=== PATIENT | male | born 1950 | race Caucasian/White ===

== ENCOUNTER → 2018-05-30 08:10 | Outpatient (BNVA) | payer MEDICARE, SELFPAY | PROVIDERS: PCP Internal Medicine; Visit Provider Urology | DX: R33.9 Retention of urine, unspecified (principal); N52.9 Male erectile dysfunction, unspecified | CPT/HCPCS: 99213 ==

== ENCOUNTER → 2019-04-10 07:54 | Outpatient (BNVA) | payer MEDICARE, SELFPAY | PROVIDERS: PCP Internal Medicine; Visit Provider Urology | DX: R33.9 Retention of urine, unspecified (principal); N52.9 Male erectile dysfunction, unspecified; R53.83 Other fatigue; R68.82 Decreased libido | CPT/HCPCS: 99213 ==

== ENCOUNTER → 2020-04-04 11:54 | Outpatient (BNVA) | payer MEDICARE, SELFPAY | PROVIDERS: PCP Internal Medicine; Referring Provider Internal Medicine; Visit Provider Urology | DX: R33.8 Other retention of urine (principal); N52.9 Male erectile dysfunction, unspecified | CPT/HCPCS: 99212; 99213 ==

== ENCOUNTER 2020-12-04 18:56 | Emergency (ER) | payer MEDICARE, SELFPAY ==
[2020-12-04 19:19] VITALS: BP 157/92; PULSE 96; RESP 15; TEMP 37.3; O2SAT 97
[2020-12-04 19:49] LABS: Abs Immature Grans 0.02 10^3/uL (0.0-0.06); Absolute Basophil Count 0.03 10^3/uL (0.0-0.2); Absolute Eosinophil Count 0.06 10^3/uL (0.0-0.7); Absolute Lymphocyte Count 0.97 10^3/uL (1.2-3.4); Absolute Monocyte Count 1.29 10^3/uL (0.1-0.8); Absolute Neutrophil Count 4.73 10^3/uL (1.2-6.7); Basophils % 0.4; Eosinophils % 0.8; HCT 31.1 % (40.0-50.0); HGB 9.9 g/dL (13.5-17.5); Immature Grans % 0.3; Lymphocytes % 13.7; MCHC 31.8 % (32.0-36.0); MCV 78.5 fL (80-95); MPV 9.9 fL (8.0-11.0); Monocytes % 18.2; Neutrophils % 66.6; Nucleated RBC 0 %; Platelet Count 200 10^3/uL (130-400); RBC 3.96 10^6/uL (4.36-5.78); RDW 17.7 % (11.8-14.1); RDW-SD 51.2 fL
[2020-12-04] MEDS: Normal Saline 250 ML 500 ML IV (20:01)
[2020-12-04 20:07] LABS: ALT 50 U/L (16-63); AST 43 U/L (15-37); Albumin 3.3 g/dL (3.4-5.0); Alkaline Phosphatase 72 U/L (46-116); BUN 24 mg/dL (7-18); Bilirubin, Total 0.4 mg/dL (0.2-1.0); CREATININE 1.7 mg/dL (0.70-1.30); Calcium 8.7 mg/dL (8.5-10.1); Chloride 100 mmol/L (98-107); Estimated GFR 39.93 (mL/min/1.73m2); Glucose 135 mg/dL (74-106); Potassium 4.5 mmol/L (3.5-5.1); Sodium 135 mmol/L (136-145); Total Protein 7.6 g/dL (6.4-8.2)
[2020-12-04 20:10] LABS: Bilirubin Negative (Negative); Blood Trace-intact (Negative); Clarity Clear (Clear); Glucose Negative (Negative); Ketones Negative (Negative); Leukocyte Esterase Small (Negative); Nitrite Negative (Negative); Urobilinogen 0.2 EU/dL (Up TO 0.2)
[2020-12-04 20:17] LABS: Bacteria Many HPF (Negative); C & S Indicated? Yes; Casts Negative LPF (Negative); Crystals Negative HPF (Negative); Epithelial Cells Few HPF (Negative); Mucus Negative (Negative); RBC 0-2 HPF (0-2); WBC 20-50 HPF (0-5)
--- NOTE | 2020-12-04 20:40 | W.ED.GENAD ---
Discharge Plan Disposition Patient Disposition: HOME Condition: Stable Discharge Details Clinical Impression: UTI (urinary tract infection), Fever Primary Care Provider: Reji Fowler ED Provider: Jemma Lopez Home Meds and New Rx's Prescriptions: New levofloxacin 750 mg tablet 750 mg PO Q24H 5 Days Qty: 5 RF: 0 Continued metformin 500 MG tablet 1,000 mg PO BID RF: 0 atorvastatin [Lipitor] 10 MG tablet 10 mg PO DAILY RF: 0 glimepiride 1 MG tablet 1 mg PO BID RF: 0 gabapentin 300 MG capsule 1,200 mg PO TID RF: 0 omeprazole 20 MG capsule,delayed release(DR/EC) 40 mg PO DAILY RF: 0 aspirin [Aspirin Low-Strength] 81 MG tablet,chewable 81 mg PO DAILY RF: 0 diltiazem HCl 60 MG tablet 120 mg PO qd RF: 0 olmesartan [Benicar] 20 MG tablet 20 mg PO DAILY RF: 0 Discharge Instructions Instructions: Urinary Tract Infection in Men (ED), Fever in Adults (ED) Additional Instructions: Drink plenty of fluids and get plenty of rest. Alternate tylenol and motrin as needed and directed for pain. Your prescription has been sent electronically to your pharmacy. Call the pharmacy to make sure your prescription is ready before pickup. Take the prescription as directed. Follow-up with your primary care doctor in 1 week and with urology as needed for any concerns. Return to the emergency department with any worsening or new concerning symptoms. Discharge Data Discharge Date/Time-TO BE ENTERED AT DEPARTURE: 12/04/20 22:10 Discharge Physician: Jemma Lopez Medical Decision Making 70-year-old male with a history of hypertension, diabetes, neurogenic bladder with history of self-catheterization presents for fever today of 102, body aches and fatigue today. He was treated earlier this month for UTI and symptoms completely resolved. Patient also complained of dry cough. He took Tylenol prior to arrival and temperature now 99.2. He appears nontoxic and comfortable. Suspect most likely UTI but will also check screening labs and chest x-ray. He denies any abdominal or back pain and has nontender abdomen I do not see an indication for imaging at this time. Screening labs reviewed. Normal white blood cell count of 7. Hemoglobin 9.9. Creatinine 1.7. Normal lactate at 1. Urinalysis notes 20-50 WBCs with small leukocyte esterase and many bacteria. Patient would prefer to go home. As he appears nontoxic with a normal lactate and vital signs, I think this is a reasonable plan at this time and will treat with oral antibiotics. Discussed with patient that he is advised to return here immediately if his fevers not responding to antipyretics or he develops vomiting, abdominal or back pain as he may be developing pyelonephritis or sepsis. Chest x-ray negative. Presentation not consistent with Covid or pneumonia. Patient was given 1 dose of Levaquin here and prescription sent electronically to his pharmacy. Advised to follow up with the primary care doctor for re-evaluation and urology if needed. Usual and customary return precautions given prior to discharge. Medical Records Medical records reviewed: Yes I reviewed the patient's medical records. Imaging Data Radiologic Study: Radiologist's impression: XR Chest Exam date and time: 12/04/2020 8:40 PM Age: 70 years old Clinical indication: Cough and fever TECHNIQUE: Imaging protocol: XR of the chest. Views: 1 view. COMPARISON: No relevant prior studies available. FINDINGS: Limitations: Patient positioning is lordotic. Lungs: No pulmonary consolidation is seen. Pleural spaces: No pleural effusion or pneumothorax is demonstrated. Heart/Mediastinum: The heart appears enlarged; however, heart size can be artifactually increased by lordotic patient positioning. The mediastinal contours appear normal. Bones/joints: The visualized bony structures appear grossly intact, as seen. There are osteophytes along the margin of the thoracic spine. IMPRESSION: No active disease is seen in the chest. Lab Data Lab results reviewed: Yes I reviewed the patient's lab results. Labs: 12/04/20 19:55 Blood Blood Culture - Preliminary NO GROWTH 24 HOURS 12/04/20 19:36 Blood Blood Culture - Preliminary Gram Positive Cocci 12/04/20 19:50 Urine - Reflex from Ua Urine Culture - Preliminary Escherichia coli Laboratory Tests Range/Units 12/04/20 12/04/20 12/04/20 19:36 19:36 19:36 WBC (4.4-10.8) 10^3/uL 7.10 RBC (4.36-5.78) 10^6/uL 3.96 L Hgb (13.5-17.5) g/dL 9.9 L Hct (40.0-50.0) % 31.1 L MCV (80-95) fL 78.5 L MCH (27.0-33.0) pg 25.0 L MCHC (32.0-36.0) % 31.8 L RDW (11.8-14.1) % 17.7 H Plt Count (130-400) 10^3/uL 200 MPV (8.0-11.0) fL 9.9 Immature Gran % 0.3 Neutrophils % 66.6 Lymphocytes % 13.7 Monocytes % 18.2 Eosinophils % 0.8 Basophils % 0.4 Nucleated RBC % % 0 Absolute Neutrophils (1.2-6.7) 10^3/uL 4.73 Absolute Lymphocytes (1.2-3.4) 10^3/uL 0.97 L Absolute Monocytes (0.1-0.8) 10^3/uL 1.29 H Absolute Eosinophils (0.0-0.7) 10^3/uL 0.06 Absolute Basophils (0.0-0.2) 10^3/uL 0.03 VBG Lactate (0.6-1.4) mmol/L 1.0 Sodium (136-145) mmol/L 135 L Potassium (3.5-5.1) mmol/L 4.5 Chloride (98-107) mmol/L 100 Carbon Dioxide (21.0-32.0) mmol/L 22.0 Anion Gap (3-11) mmol/L 13.0 H BUN (7-18) mg/dL 24 H Creatinine (0.70-1.30) mg/dL 1.7 H Estimated GFR/1.73 m2 (mL/min/1.73m2) 39.93 Glucose (74-106) mg/dL 135 H Calcium (8.5-10.1) mg/dL 8.7 Total Bilirubin (0.2-1.0) mg/dL 0.4 AST (15-37) U/L 43 H ALT (16-63) U/L 50 Alkaline Phosphatase (46-116) U/L 72 Total Protein (6.4-8.2) g/dL 7.6 Albumin (3.4-5.0) g/dL 3.3 L Urine Color (Yellow) Urine Clarity (Clear) Urine pH (5-8) Ur Specific Purm[place] (1.005-1.025) Urine Protein (Negative) mg/dL Urine Ketones (Negative) mg/dL Urine Blood (Negative) Urine Nitrite (Negative) Urine Bilirubin (Negative) Urine Urobilinogen (Up TO 0.2) EU/dL Ur Leukocyte Esterase (Negative) Urine RBC (0-2) HPF Urine WBC (0-5) HPF Ur Epithelial Cells (Negative) HPF Urine Crystals (Negative) HPF Urine Bacteria (Negative) HPF Urine Casts (Negative) LPF Urine Mucus (Negative) Ur Culture Indicated? Urine Glucose (Negative) mg/dL Range/Units 12/04/20 19:50 WBC (4.4-10.8) 10^3/uL RBC (4.36-5.78) 10^6/uL Hgb (13.5-17.5) g/dL Hct (40.0-50.0) % MCV (80-95) fL MCH (27.0-33.0) pg MCHC (32.0-36.0) % RDW (11.8-14.1) % Plt Count (130-400) 10^3/uL MPV (8.0-11.0) fL Immature Gran % Neutrophils % Lymphocytes % Monocytes % Eosinophils % Basophils % Nucleated RBC % % Absolute Neutrophils (1.2-6.7) 10^3/uL Absolute Lymphocytes (1.2-3.4) 10^3/uL Absolute Monocytes (0.1-0.8) 10^3/uL Absolute Eosinophils (0.0-0.7) 10^3/uL Absolute Basophils (0.0-0.2) 10^3/uL VBG Lactate (0.6-1.4) mmol/L Sodium (136-145) mmol/L Potassium (3.5-5.1) mmol/L Chloride (98-107) mmol/L Carbon Dioxide (21.0-32.0) mmol/L Anion Gap (3-11) mmol/L BUN (7-18) mg/dL Creatinine (0.70-1.30) mg/dL Estimated GFR/1.73 m2 (mL/min/1.73m2) Glucose (74-106) mg/dL Calcium (8.5-10.1) mg/dL Total Bilirubin (0.2-1.0) mg/dL AST (15-37) U/L ALT (16-63) U/L Alkaline Phosphatase (46-116) U/L Total Protein (6.4-8.2) g/dL Albumin (3.4-5.0) g/dL Urine Color (Yellow) Yellow Urine Clarity (Clear) Clear Urine pH (5-8) 6.0 Ur Specific Purmela (1.005-1.025) 1.010 Urine Protein (Negative) mg/dL Negative Urine Ketones (Negative) mg/dL Negative Urine Blood (Negative) Trace-intact H Urine Nitrite (Negative) Negative Urine Bilirubin (Negative) Negative Urine Urobilinogen (Up TO 0.2) EU/dL 0.2 Ur Leukocyte Esterase (Negative) Small H Urine RBC (0-2) HPF 0-2 Urine WBC (0-5) HPF 20-50 H Ur Epithelial Cells (Negative) HPF Few Urine Crystals (Negative) HPF Negative Urine Bacteria (Negative) HPF Many Urine Casts (Negative) LPF Negative Urine Mucus (Negative) Negative Ur Culture Indicated? Yes Urine Glucose (Negative) mg/dL Negative HPI General Mode of arrival: ambulatory. Date/Time Provider Initiated Documentation: 12/04/20 19:31. Limitations to Documentation: no limitations. Information obtained by: patient. HPI Narrative: Patient is a 70-year-old male with a history of diabetes, hypertension and neurogenic bladder who presents to the ED with a few days of fatigue and feeling feverish. He states today he had a temperature at home of 102.8 oral. He states he has self catheterize for the past few years due to neurogenic bladder as a result of surgery. He states he last was treated for a UTI earlier this month but he is not sure of the antibiotic. He states he has frequent UTIs and states his symptoms appear similar to that. He states his symptoms completely resolved after taking antibiotics earlier this month. He states over the past few days he has been feeling feverish with body aches. He also does admit to a dry cough but denies any chest pain or shortness of breath. He states he has been eating normally and denies any nausea, vomiting, diarrhea. He also denies any hematuria, dysuria, urinary frequency or penile discharge. Related Data Home Medications Medication Instructions Recorded Confirmed aspirin [Aspirin Low-Strength] 81 mg PO DAILY tab.chew 04/18/14 12/05/20 atorvastatin [Lipitor] 10 mg PO DAILY tab-cap 04/18/14 12/05/20 diltiazem HCl 120 mg PO qd tab-cap 04/18/14 12/05/20 gabapentin 1,200 mg PO TID tab-cap 04/18/14 12/05/20 glimepiride 1 mg PO BID 04/18/14 12/05/20 metformin 1,000 mg PO BID tab-cap 04/18/14 12/05/20 olmesartan [Benicar] 20 mg PO DAILY tab-cap 04/18/14 12/05/20 omeprazole 40 mg PO DAILY tab-cap 04/18/14 12/05/20 levofloxacin 750 mg PO Q24H 5 Days #5 tab 12/04/20 12/05/20 Previous Rx's Medication Instructions Recorded levofloxacin 750 mg PO Q24H 5 Days #5 tab 12/04/20 Allergies Allergy/AdvReac Type Severity Reaction Status Date / Time No Known Allergies Allergy Unverified 12/05/20 14:42 General Stated Complaint: Fever MAXIMILIANO: 2 Review of Systems All systems reviewed & are unremarkable except as noted in HPI and below Constitutional Constitutional: Reports as per HPI, Reports chills and Reports fever(s) Eyes Eyes: Denies blurry vision ENT Ears, Nose, Mouth, and Throat: Denies dizziness, Denies sore throat and Denies throat swelling Cardiovascular Cardiovascular: Denies chest pain and Denies dyspnea Respiratory Respiratory: Denies cough and Denies dyspnea Gastrointestinal Gastrointestinal: Denies abdominal pain, Denies diarrhea and Denies vomiting Genitourinary Genitourinary: Denies hematuria and Denies dysuria Musculoskeletal Musculoskeletal: Denies back pain and Denies numbness Integumentary/Breasts Skin/Breast: Denies lesions and Denies rash Neurologic Neurologic: Denies dizziness, Denies localized weakness and Denies numbness Allergic/Immunologic Allergic/Immunologic: Denies throat swelling [facility] Medical History (Updated 12/05/20 @ 16:32 by SHANI Dunn) Diabetes HTN (hypertension) Neurogenic bladder Surgical History (Updated 12/04/20 @ 20:41 by Jemma Lopez DO) History of back surgery History of hip surgery Social History Smoking/Tobacco Use Status: Never Smoking risk assessment performed?: Yes Alcohol Intake: never Substance use type: does not use Do you feel safe at home: Yes Do you feel safe in your relationship?: Yes Exam Const General: cooperative and no acute distress HENMT Head: normal to inspection Face and sinus: normal facial exam Eyes General: appearance normal, both eyes and all related structures EOM: EOM intact bilaterally Neck Neck: normal visual inspection and No submandibular swelling Lymphatic: no lymphadenopathy noted Chest Chest: normal inspection of the chest and no tenderness Resp Effort & Inspection: normal respiratory effort and able to speak in complete sentences Auscultation: clear to auscultation bilaterally Cardio Rate: regular rate Rhythm: regular rhythm GI Inspection: normal to inspection and obesity Palpation: soft, not firm, not rigid and nontender Auscultation: normal bowel sounds Male General Exam: Yes normal external exam Penis: normal penis Scrotum: scrotum normal Testes: no testicular mass and no testicular swelling Skin General skin exam: no rashes or lesions noted Neuro General: patient alert, patient awake and patient oriented x3 Cognition: normal cognition Speech: speech normal Motor: muscle tone normal throughout Sensory Exam: no sensory deficits noted Extrem General: normal to inspection, full ROM, capillary refill normal, no calf tenderness bilaterally and no edema Psych Appearance: grossly normal Mental Status: mental status grossly normal Speech and Movement: speech and movement normal Affect: normal affect Course Vital Signs Vital signs: Vital Signs Temperature 99.2 F 12/04/20 19:19 Pulse 96 H 12/04/20 19:19 Respiratory Rate 15 12/04/20 19:19 Blood Pressure 157/92 H 12/04/20 19:19 Pulse Oximetry 97 12/04/20 19:19 Temperature 99.2 F 12/04/20 19:19 Temperature Source Oral 12/04/20 19:19 Pulse 96 H 12/04/20 19:19 Respiratory Rate 15 12/04/20 19:19 Respiratory Effort Non-Labored 12/04/20 19:22 Blood Pressure 157/92 H 12/04/20 19:19 Blood Pressure Position Sitting 12/04/20 19:19 Pulse Oximetry 97 12/04/20 19:19 Oxygen Delivery Method Room Air 12/04/20 19:19 Oxygen Flow Rate 0 12/04/20 19:19 Pain Level 0 12/04/20 19:19 Lab/Test Results Lab/Test Results: 12/04/20 19:50 Urine - Reflex from Ua Urine Culture - Pending 12/04/20 19:55 Blood Blood Culture - Pending 12/04/20 19:36 Blood Blood Culture - Pending Laboratory Tests Range/Units 12/04/20 12/04/20 12/04/20 19:36 19:36 19:36 WBC (4.4-10.8) 10^3/uL 7.10 RBC (4.36-5.78) 10^6/uL 3.96 L Hgb (13.5-17.5) g/dL 9.9 L Hct (40.0-50.0) % 31.1 L MCV (80-95) fL 78.5 L MCH (27.0-33.0) pg 25.0 L MCHC (32.0-36.0) % 31.8 L RDW (11.8-14.1) % 17.7 H Plt Count (130-400) 10^3/uL 200 MPV (8.0-11.0) fL 9.9 Immature Gran % 0.3 Neutrophils % 66.6 Lymphocytes % 13.7 Monocytes % 18.2 Eosinophils % 0.8 Basophils % 0.4 Nucleated RBC % % 0 Absolute Neutrophils (1.2-6.7) 10^3/uL 4.73 Absolute Lymphocytes (1.2-3.4) 10^3/uL 0.97 L Absolute Monocytes (0.1-0.8) 10^3/uL 1.29 H Absolute Eosinophils (0.0-0.7) 10^3/uL 0.06 Absolute Basophils (0.0-0.2) 10^3/uL 0.03 VBG Lactate (0.6-1.4) mmol/L 1.0 Sodium (136-145) mmol/L 135 L Potassium (3.5-5.1) mmol/L 4.5 Chloride (98-107) mmol/L 100 Carbon Dioxide (21.0-32.0) mmol/L 22.0 Anion Gap (3-11) mmol/L 13.0 H BUN (7-18) mg/dL 24 H Creatinine (0.70-1.30) mg/dL 1.7 H Estimated GFR/1.73 m2 (mL/min/1.73m2) 39.93 Glucose (74-106) mg/dL 135 H Calcium (8.5-10.1) mg/dL 8.7 Total Bilirubin (0.2-1.0) mg/dL 0.4 AST (15-37) U/L 43 H ALT (16-63) U/L 50 Alkaline Phosphatase (46-116) U/L 72 Total Protein (6.4-8.2) g/dL 7.6 Albumin (3.4-5.0) g/dL 3.3 L Urine Color (Yellow) Urine Clarity (Clear) Urine pH (5-8) Ur Specific [place] (1.005-1.025) Urine Protein (Negative) mg/dL Urine Ketones (Negative) mg/dL Urine Blood (Negative) Urine Nitrite (Negative) Urine Bilirubin (Negative) Urine Urobilinogen (Up TO 0.2) EU/dL Ur Leukocyte Esterase (Negative) Urine RBC (0-2) HPF Urine WBC (0-5) HPF Ur Epithelial Cells (Negative) HPF Urine Crystals (Negative) HPF Urine Bacteria (Negative) HPF Urine Casts (Negative) LPF Urine Mucus (Negative) Ur Culture Indicated? Urine Glucose (Negative) mg/dL Range/Units 12/04/20 19:50 WBC (4.4-10.8) 10^3/uL RBC (4.36-5.78) 10^6/uL Hgb (13.5-17.5) g/dL Hct (40.0-50.0) % MCV (80-95) fL MCH (27.0-33.0) pg MCHC (32.0-36.0) % RDW (11.8-14.1) % Plt Count (130-400) 10^3/uL MPV (8.0-11.0) fL Immature Gran % Neutrophils % Lymphocytes % Monocytes % Eosinophils % Basophils % Nucleated RBC % % Absolute Neutrophils (1.2-6.7) 10^3/uL Absolute Lymphocytes (1.2-3.4) 10^3/uL Absolute Monocytes (0.1-0.8) 10^3/uL Absolute Eosinophils (0.0-0.7) 10^3/uL Absolute Basophils (0.0-0.2) 10^3/uL VBG Lactate (0.6-1.4) mmol/L Sodium (136-145) mmol/L Potassium (3.5-5.1) mmol/L Chloride (98-107) mmol/L Carbon Dioxide (21.0-32.0) mmol/L Anion Gap (3-11) mmol/L BUN (7-18) mg/dL Creatinine (0.70-1.30) mg/dL Estimated GFR/1.73 m2 (mL/min/1.73m2) Glucose (74-106) mg/dL Calcium (8.5-10.1) mg/dL Total Bilirubin (0.2-1.0) mg/dL AST (15-37) U/L ALT (16-63) U/L Alkaline Phosphatase (46-116) U/L Total Protein (6.4-8.2) g/dL Albumin (3.4-5.0) g/dL Urine Color (Yellow) Yellow Urine Clarity (Clear) Clear Urine pH (5-8) 6.0 Ur Specific Purm[place] (1.005-1.025) 1.010 Urine Protein (Negative) mg/dL Negative Urine Ketones (Negative) mg/dL Negative Urine Blood (Negative) Trace-intact H Urine Nitrite (Negative) Negative Urine Bilirubin (Negative) Negative Urine Urobilinogen (Up TO 0.2) EU/dL 0.2 Ur Leukocyte Esterase (Negative) Small H Urine RBC (0-2) HPF 0-2 Urine WBC (0-5) HPF 20-50 H Ur Epithelial Cells (Negative) HPF Few Urine Crystals (Negative) HPF Negative Urine Bacteria (Negative) HPF Many Urine Casts (Negative) LPF Negative Urine Mucus (Negative) Negative Ur Culture Indicated? Yes Urine Glucose (Negative) mg/dL Negative
--- NOTE | 2020-12-04 20:58 | DI.RAD_ITS ---
Exam(s) XR PORTABLE CHEST AP EXAM: XR PORTABLE CHEST AP CLINICAL HISTORY: fever, cough, r/o acute disease TECHNIQUE: COMPARISON: No exams were available for comparison FINDINGS: There is a poor inspiration. Cardiac size appears at the upper limits of normal to mildly enlarged. Lungs are grossly clear and well expanded. IMPRESSION: No evidence of acute process. RADIATION DOSE DELIVERED: Total DLP
[2020-12-04 21:12] VITALS: BP 121/64; PULSE 90; RESP 16; O2SAT 92
--- NOTE | 2020-12-04 21:39 | DI.VRAD_ITS ---
PROCEDURE INFORMATION: Exam: XR Chest Exam date and time: 12/04/2020 8:40 PM Age: 70 years old Clinical indication: Cough and fever TECHNIQUE: Imaging protocol: XR of the chest. Views: 1 view. COMPARISON: No relevant prior studies available. FINDINGS: Limitations: Patient positioning is lordotic. Lungs: No pulmonary consolidation is seen. Pleural spaces: No pleural effusion or pneumothorax is demonstrated. Heart/Mediastinum: The heart appears enlarged; however, heart size can be artifactually increased by lordotic patient positioning. The mediastinal contours appear normal. Bones/joints: The visualized bony structures appear grossly intact, as seen. There are osteophytes along the margin of the thoracic spine. IMPRESSION: No active disease is seen in the chest. Dictated and Authenticated by: Davion Anglin MD. Ordering:KATHRYN Easton MD
[2020-12-04] MEDS: levoFLOXacin 500 MG, levoFLOXacin 250 MG 750 MG PO (22:04)
[2020-12-04 22:07] VITALS: TEMP 36.7
--- NOTE | 2020-12-05 12:55 | W.ED.FU ---
Follow Up Plan: Patient notified on 12/05/2020 regarding positive gram-positive cocci on his blood cultures. Instructed to return to the emergency room for admission for IV antibiotics, patient states feeling symptomatically improved. Alert and interactive in this discussion
== END 2020-12-04 22:10 | disposition home or self-care (01) ==
PROVIDERS: Emergency Provider Physician Assistant; PCP Internal Medicine
DX: R50.9 Fever, unspecified (principal); N39.0 Urinary tract infection, site not specified
CPT/HCPCS: 80053; 87040; 87077; 99283; 71045; 81003; 81015; 83605; 85025; 87086; 87186

== ENCOUNTER 2020-12-05 14:10 | Emergency (ER) | payer MEDICARE, SELFPAY ==
[2020-12-05] VITALS (14 sets, daily range): BP systolic 73–136; BP diastolic 27–72; PULSE 85–95; RESP 15–28; TEMP 36.8; O2SAT 91–98
--- NOTE | 2020-12-05 15:09 | ED.GENADUL_ITS ---
Discharge Plan Disposition Patient Disposition: HOME Condition: Stable Discharge Details Clinical Impression: UTI (urinary tract infection) Primary Care Provider: Reji Fowler ED Provider: Velia Marion Home Meds and New Rx's Prescriptions: No Action metformin 500 MG tablet 1,000 mg PO BID RF: 0 atorvastatin [Lipitor] 10 MG tablet 10 mg PO DAILY RF: 0 glimepiride 1 MG tablet 1 mg PO BID RF: 0 gabapentin 300 MG capsule 1,200 mg PO TID RF: 0 omeprazole 20 MG capsule,delayed release(DR/EC) 40 mg PO DAILY RF: 0 aspirin [Aspirin Low-Strength] 81 MG tablet,chewable 81 mg PO DAILY RF: 0 diltiazem HCl 60 MG tablet 120 mg PO qd RF: 0 olmesartan [Benicar] 20 MG tablet 20 mg PO DAILY RF: 0 levofloxacin 750 mg tablet 750 mg PO Q24H 5 Days Qty: 5 RF: 0 Discharge Instructions Instructions: Urinary Tract Infection in Men (ED) Additional Instructions: We have drawn another set of blood cultures, we will contact you if these are positive, please continue taking your Levaquin as prescribed You must take your antibiotics as prescribed or you will become more ill Recheck in 24 hours recommended Should you develop chills, uncontrolled fever,, weakness, or have inability to take your antibiotics he must return immediately to the emergency room Discharge Data Discharge Date/Time-TO BE ENTERED AT DEPARTURE: 12/05/20 16:51 Medical Decision Making While patient does have a positive blood culture, he has an obvious urinary tract infection that is E. coli positive blood cultures are positive for staph, this is likely a contamination, patient feels significantly improved, his vitals are stable, he is ambulatory with steady gait Case was discussed with admitting hospitalist, Dr. Savage and he feels as though if the patient is comfortable being discharged home it is not unreasonable to discharge the patient from the [facility] return precautions discussed, patient is alert, oriented, of decisional capacity, his partner is in the room and able to feel comfortable discharge her home, in fact they prefer discharge home Repeat blood cultures are pending, diagnostic blood work is reassuring for patient, chronically elevated creatinine Discharge, prescription for Levaquin which was applied yesterday Differential Diagnosis Differential Diagnosis: Pyelonephritis, cystitis, ureterolithiasis, divertic ulitis Medical Records Medical records reviewed: Yes I reviewed the patient's medical records. Lab Data Lab results reviewed: Yes I reviewed the patient's lab results. HPI General Mode of arrival: ambulatory . Date/Time Provider Initiated Documentation: 12/05/20 15:03 . Limitations to Documentation: no limitations . Information obtained by: patient . HPI Narrative: This 70-year-old male with history of urinary tract infection and self-catheterization secondary to BPH presents with report of fever for the past 3 days. Patient did not have a fever today reportedly. He was called to come back to the emergency room secondary to positive blood cultures. He denies any shortness of breath or chest pain. He denies any nausea or vomiting. He did not take Tylenol prior to arrival. Related Data Home Medications Medication Instructions Recorded Confirmed aspirin [Aspirin Low-Strength] 81 mg PO DAILY tab.chew 04/18/14 12/05/20 atorvastatin [Lipitor] 10 mg PO DAILY tab-cap 04/18/14 12/05/20 diltiazem HCl 120 mg PO qd tab-cap 04/18/14 12/05/20 gabapentin 1,200 mg PO TID tab-cap 04/18/14 12/05/20 glimepiride 1 mg PO BID 04/18/14 12/05/20 metformin 1,000 mg PO BID tab-cap 04/18/14 12/05/20 olmesartan [Benicar] 20 mg PO DAILY tab-cap 04/18/14 12/05/20 omeprazole 40 mg PO DAILY tab-cap 04/18/14 12/05/20 levofloxacin 750 mg PO Q24H 5 Days #5 tab 12/04/20 12/05/20 Previous Rx's Medication Instructions Recorded levofloxacin 750 mg PO Q24H 5 Days #5 tab 12/04/20 Allergies Allergy/AdvReac Type Severity Reaction Status Date / Time No Known Allergies Allergy Unverified 12/05/20 14:42 General Stated Complaint: [employer] MAXIMILIANO: 3 Review of Systems Narrative: Review of systems obtained x7 aside from where indicated in HPI PFSH Medical History (Updated 12/05/20 @ 16:32 by SHANI Dunn) Diabetes HTN (hypertension) Neurogenic bladder Surgical History (Updated 12/04/20 @ 20:41 by Jemma Lopez DO) History of back surgery History of hip surgery Social History Smoking/Tobacco Use Status: Never Smoking risk assessment performed?: Yes Alcohol Intake: never Substance use type: does not use Do you feel safe at home: Yes Do you feel safe in your relationship?: Yes Exam Const General: cooperative, comfortable and no acute distress HENMT Mouth: oral mucosae normal Chest Chest: normal inspection of the chest Resp Effort & Inspection: normal respiratory effort Cardio Rate: regular rate Rhythm: regular rhythm GI Other: No abdominal tenderness or CVA tenderness Skin General skin exam: no rashes or lesions noted Neuro General: patient alert and patient oriented x3 Course Vital Signs Vital signs: Vital Signs Temperature 36.8 C 12/05/20 14:38 Pulse 95 H 12/05/20 14:38 Respiratory Rate 16 12/05/20 14:38 Blood Pressure 124/65 12/05/20 14:38 Pulse Oximetry 98 12/05/20 14:38 Temperature 36.8 C 12/05/20 14:38 Temperature Source Skin 12/05/20 14:38 Pulse 95 H 12/05/20 14:38 Respiratory Rate 18 12/05/20 15:04 Respiratory Effort Non-Labored 12/05/20 15:04 Respiratory Depth Normal 12/05/20 15:04 Respiratory Pattern Normal 12/05/20 15:04 Blood Pressure 124/65 12/05/20 14:38 Blood Pressure Position Sitting 12/05/20 14:38 Pulse Oximetry 98 12/05/20 14:38 Oxygen Delivery Method Room Air 12/05/20 14:38 Oxygen Flow Rate 0 12/05/20 14:38 Lab/Test Results Lab/Test Results: 12/05/20 15:03 Blood Blood Culture - Pending 12/05/20 15:03 Blood Blood Culture - Pending
[2020-12-05 15:16] LABS: Abs Immature Grans 0.02 10^3/uL (0.0-0.06); Absolute Basophil Count 0.03 10^3/uL (0.0-0.2); Absolute Eosinophil Count 0.04 10^3/uL (0.0-0.7); Absolute Lymphocyte Count 1.41 10^3/uL (1.2-3.4); Absolute Monocyte Count 1.25 10^3/uL (0.1-0.8); Basophils % 0.4; Eosinophils % 0.5; HCT 33.6 % (40.0-50.0); HGB 10.9 g/dL (13.5-17.5); Immature Grans % 0.3; Lymphocytes % 18.7; MCH 25.7 pg (27.0-33.0); MCHC 32.4 % (32.0-36.0); MCV 79.2 fL (80-95); MPV 9.7 fL (8.0-11.0); Monocytes % 16.6; Neutrophils % 63.5; Nucleated RBC 0 %; Platelet Count 225 10^3/uL (130-400); RBC 4.24 10^6/uL (4.36-5.78); RDW 18.1 % (11.8-14.1); RDW-SD 52.3 fL; WBC 7.55 10^3/uL (4.4-10.8)
[2020-12-05 15:29] LABS: ALT 50 U/L (16-63); AST 43 U/L (15-37); Albumin 3.5 g/dL (3.4-5.0); Alkaline Phosphatase 80 U/L (46-116); BUN 25 mg/dL (7-18); Bilirubin, Total 0.4 mg/dL (0.2-1.0); CREATININE 1.9 mg/dL (0.70-1.30); Chloride 101 mmol/L (98-107); Estimated GFR 35.12 (mL/min/1.73m2); Glucose 142 mg/dL (74-106); Potassium 4.2 mmol/L (3.5-5.1); Sodium 137 mmol/L (136-145); Total Protein 8.6 g/dL (6.4-8.2)
[2020-12-05] MEDS: cefTRIAXone 2 GM/50 ML BAG IVPB (15:46)
[2020-12-05 16:30] LABS: Source Nasal/Nares
[2020-12-05 20:39] LABS: COVID-19 PCR Negative (Negative)
== END 2020-12-05 16:51 | disposition home or self-care (01) ==
PROVIDERS: Emergency Provider Physician Assistant; PCP Internal Medicine
DX: N39.0 Urinary tract infection, site not specified (principal); B96.20 Unspecified Escherichia coli [E. coli] as the cause of diseases classified elsewhere
CPT/HCPCS: 36415; 80053; 87040; 87635; 96365; 99284; 83605; 83735; 85025; 99282

== ENCOUNTER 2021-06-22 14:54 | Outpatient (CLI) | payer MEDICARE, SELFPAY ==
--- NOTE | 2021-06-22 10:30 | DI.RAD_ITS ---
Exam(s) XR CHEST 2V PA LATERAL EXAM: XR CHEST 2V PA LATERAL CLINICAL HISTORY: fever, rhonchi RLL, R50.9. TECHNIQUE: 2D digital imaging was performed. COMPARISON: CR,XR XR PORTABLE CHEST AP from 12/04/2020 FINDINGS: Heart size is normal. The mediastinum is not widened. Left lung is clear. Mild increased markings right lung base no true air bronchograms. No pleural ef fusions. No pulmonary edema. IMPRESSION: Very subtle increased markings right lung base. No pleural effusions DATA REPOSITORY: RADIATION DOSE DELIVERED:
[2021-06-22 11:43] LABS: Abs Immature Grans 0.03 10^3/uL (0.0-0.06); Absolute Basophil Count 0.02 10^3/uL (0.0-0.2); Absolute Eosinophil Count 0.06 10^3/uL (0.0-0.7); Absolute Lymphocyte Count 0.55 10^3/uL (1.2-3.4); Absolute Monocyte Count 0.41 10^3/uL (0.1-0.8); Absolute Neutrophil Count 5.61 10^3/uL (1.2-6.7); Basophils % 0.3; Eosinophils % 0.9; HCT 36.2 % (40.0-50.0); Immature Grans % 0.4; Lymphocytes % 8.2; MCH 22.9 pg (27.0-33.0); MCHC 30.4 % (32.0-36.0); MCV 75.4 fL (80-95); MPV 9.8 fL (8.0-11.0); Monocytes % 6.1; Neutrophils % 84.1; Nucleated RBC 0 %; Platelet Count 223 10^3/uL (130-400); RDW 18.3 % (11.8-14.1); RDW-SD 49.8 fL; WBC 6.68 10^3/uL (4.4-10.8)
[2021-06-22 11:51] LABS: ALT 755 U/L (16-63); AST 488 U/L (15-37); Albumin 3.3 g/dL (3.4-5.0); Alkaline Phosphatase 186 U/L (46-116); Anion Gap 13.2 mmol/L (3-11); BUN 25 mg/dL (7-18); Bilirubin, Total 0.9 mg/dL (0.2-1.0); CO2 23.8 mmol/L (21.0-32.0); CREATININE 1.7 mg/dL (0.70-1.30); Calcium 8.6 mg/dL (8.5-10.1); Chloride 96 mmol/L (98-107); Estimated GFR 39.82 (mL/min/1.73m2); Glucose 198 mg/dL (74-106); Potassium 3.4 mmol/L (3.5-5.1); Sodium 133 mmol/L (136-145); Total Protein 7.9 g/dL (6.4-8.2)
[2021-06-22 12:26] LABS: Lipase 170 U/L (73-393)
[2021-06-22] MEDS: Omnipaque 350 MG/ML 100 ML BTL IJ (12:48)
[2021-06-22] MEDS: Normal Saline Flush 10 ML SYR IVP (12:49)
--- NOTE | 2021-06-22 12:51 | DI.CT_ITS ---
Exam(s) CT ABDOMEN PELVIS W EXAM: CT ABDOMEN PELVIS W CLINICAL HISTORY: fever, abdominal pain, decreased appetite, R50.9. TECHNIQUE: Imaging Protocol: Axial computed tomography images with coronal and sagittal reformatted images were created and reviewed CONTRAST MATERIAL: Intravenous: Omnipaque 100cc Oral: Yes COMPARISON: CR XR CHEST 2V PA LATERAL from 06/22/2021 CR XR CHEST 2V PA LATERAL from 06/22/2021 FINDINGS: VISUALIZED LUNG BASES: Minimal increased markings right lung base posterior basal segment. No pleura l effusions.. ABDOMEN: There is no ascites. LIVER: There are no focal hepatic lesions evident . GALLBLADDER/BILIARY: Gallstones noted. In addition, there is gallbladder wall edema-pericholecystic fluid. Gallbladder is not distended. CBD is not dilated. PANCREAS: No evidence of pancreatic mass nor dilatation of the pancreatic duct. SPLEEN: Spleen size normal. There is a round 2 cm splenule noted. No intrasplenic lesions. Splenic and portal veins are patent. ADRENALS: There are no significant adrenal masses. KIDNEYS:No cysts evident. No solid renal masses. No calculi nor hydronephrosis.. ABDOMINAL AORTA: Abdominal aorta is not enlarged. LYMPH NODES:There is no retroperitoneal nor paraaortic adenopathy. ABDOMINAL WALL: No evidence of significant anterior abdominal wall nor inguinal hernia. GI: There is no evidence of bowel obstruction, free air, nor abscess. PELVIS: GI: Appendix is not seen is a separate structure but there is no evidence of obvious appendicitis.No evidence of sigmoid diverticulitis. LYMPH NODES: There is no intrapelvic nor inguinal adenopathy. REPRODUCTIVE: Prostate gland slightly enlarged. URINARY BLADDER: No calculi nor obvious masses evident OSSEOUS: There is fusion hardware across both sacroiliac joints. No significant osseous lesions. Co mpared fresh in fractures of L2 and L3 with fusion across the disc space, this having chronic appeara nce IMPRESSION: 1. There are gallstones in the gallbladder lumen and there is some pericholecystic fluid. Consistent with acute cholecystitis. CBD is not dilated and does not contain obvious calculi. There is no oswaldo dence of pancreatitis. 2. No bowel obstruction. No free air. RADIATION DOSE DELIVERED: 1,032.43mGy.cm Total DLP DATA REPOSITORY: All CT scans at this facility are submitted to the National Radiology Data Registry (NRDR) Dose Index Registry (DIR) with the [employer] (ACR). RADIATION OPTIMIZATION: All CT scans at this facility use at least one of these dose optimization te chniques: automated exposure control; mA and/or kV adjustment per patient size (includes targeted exa ms where dose is matched to clinical indication); or iterative reconstruction.
[2021-06-24 11:53] LABS: Hepatitis A Antibody IgM Negative (Negative); Hepatitis B Core Antibody Negative (Negative); Hepatitis B surface Ag Negative (Negative); Hepatitis C Ab w Rflx HCV PCR Negative (Negative)
== END 2021-06-22 15:14 ==
PROVIDERS: PCP Family Medicine; Visit Provider Physician Assistant
DX: R50.9 Fever, unspecified (principal); R79.89 Other specified abnormal findings of blood chemistry; K80.10 Calculus of gallbladder with chronic cholecystitis without obstruction; R91.8 Other nonspecific abnormal finding of lung field
CPT/HCPCS: 80053; 83690; 86704; 86709; 86803; 87340; 71046; 74177; 81003; 85025; J3490

== ENCOUNTER 2021-06-22 16:24 | Outpatient (REF) | payer MEDICARE, SELFPAY ==
[2021-06-22 16:25] LABS: Bilirubin Negative (Negative); Blood Negative (Negative); Clarity Clear (Clear); Glucose 100 mg/dL (Negative); Ketones Negative (Negative); Leukocyte Esterase Negative (Negative); Nitrite Negative (Negative); Specific Gravity 1.025 (1.005-1.025); pH 5.5 (5-8)
[2021-06-23 13:16] LABS: COVID-19 RT-PCR UVMMC Result Negative (Negative)
== END 2021-06-22 16:25 | disposition home or self-care (01) ==
LOC: LBN 16:24
PROVIDERS: PCP Family Medicine; Visit Provider Physician Assistant
DX: Z20.822 Contact with and (suspected) exposure to COVID-19 (principal); N39.0 Urinary tract infection, site not specified
CPT/HCPCS: U0003; U0005; 81003

== ENCOUNTER 2021-06-22 17:46 | Inpatient (IN) | payer MEDICARE, SELFPAY ==
[2021-06-22 16:05] VITALS: BP 142/82; PULSE 84; RESP 16; TEMP 37.4; O2SAT 93
[2021-06-22] MEDS: Acetaminophen 500 MG TAB 1000 MG PO (19:05)
[2021-06-22] MEDS: Gabapentin 300 MG CAP 1200 MG PO (19:48)
[2021-06-22] MEDS: PIPERACILLIN/TAZO 3.375 GM in Normal Saline 50 ML IVPB (22:04)
[2021-06-22] MEDS: Normal Saline 1,000 ML 100 ML IV (22:04)
[2021-06-22 23:12] VITALS: BP 122/66; PULSE 100; RESP 18; TEMP 36.7; O2SAT 100
[2021-06-22 23:44] LABS: COVID-19 PCR Negative (Negative); Source Nasal/Nares
[2021-06-23] MEDS: Dextrose 50%-Water 25 GM/50 ML SYR IVP (05:16)
[2021-06-23] MEDS: PIPERACILLIN/TAZO 3.375 GM in Normal Saline 50 ML IVPB ×3 (05:31→21:46)
[2021-06-23 07:17] LABS: Abs Immature Grans 0.01 10^3/uL (0.0-0.06); Absolute Basophil Count 0.02 10^3/uL (0.0-0.2); Absolute Eosinophil Count 0.09 10^3/uL (0.0-0.7); Absolute Lymphocyte Count 0.51 10^3/uL (1.2-3.4); Absolute Monocyte Count 0.36 10^3/uL (0.1-0.8); Absolute Neutrophil Count 2.46 10^3/uL (1.2-6.7); Basophils % 0.6; Eosinophils % 2.6; HCT 33.7 % (40.0-50.0); HGB 10.4 g/dL (13.5-17.5); Immature Grans % 0.3; Lymphocytes % 14.8; MCH 22.7 pg (27.0-33.0); MCHC 30.9 % (32.0-36.0); MCV 73.6 fL (80-95); MPV 10.2 fL (8.0-11.0); Monocytes % 10.4; Neutrophils % 71.3; Nucleated RBC 0 %; Platelet Count 216 10^3/uL (130-400); RBC 4.58 10^6/uL (4.36-5.78); RDW-SD 47.3 fL; WBC 3.45 10^3/uL (4.4-10.8)
[2021-06-23 07:46] LABS: ALT 508 U/L (16-63); AST 266 U/L (15-37); Alkaline Phosphatase 152 U/L (46-116); Anion Gap 10.4 mmol/L (3-11); BUN 21 mg/dL (7-18); Bilirubin, Total 0.6 mg/dL (0.2-1.0); CO2 23.6 mmol/L (21.0-32.0); CREATININE 1.5 mg/dL (0.70-1.30); Calcium 8.6 mg/dL (8.5-10.1); Chloride 107 mmol/L (98-107); GGT 415 U/L (15-85); Glucose 129 mg/dL (74-106); Potassium 3.5 mmol/L (3.5-5.1); Sodium 141 mmol/L (136-145); TSH 1.19 uIU/mL (0.36-3.74); Total Protein 7.2 g/dL (6.4-8.2)
[2021-06-23 07:50] LABS: Diff Comment RBC Morph Reviewed
[2021-06-23 07:51] LABS: Anisocytosis 1+; Microcytosis 1+; Poikilocytes 1+; Polychromasia Present
[2021-06-23 08:03] LABS: Iron 20 ug/dL (65-175); Total Iron Binding Capacity 286 ug/dL (250-450); Transferrin Sat 7 % (20-55)
[2021-06-23 08:23] LABS: Ferritin 56 ng/mL (26-388)
[2021-06-23 08:39] VITALS: BP 150/82; PULSE 89; RESP 16; TEMP 37.4; O2SAT 94
--- NOTE | 2021-06-23 09:00 | DI.US_ITS ---
Exam(s) US ABDOMEN LIMITED EXAM: US ABDOMEN LIMITED CLINICAL HISTORY: Acute cholecystitis TECHNIQUE: Ultrasound abdomen performed using standard protocol. COMPARISON: CT CT ABDOMEN PELVIS W from 06/22/[address] ABDOMEN PELVIS W from 06/22/2021 FINDINGS: PANCREAS: Normal where visualized. LIVER: There is diffuse increased echogenicity of the liver consistent with fatty infiltration. Hepa topedal flow in the Portal Vein. The liver measures 19.6 cm long. GALLBLADDER: Mobile gallstones are present. Gallbladder wall measures up to 3.4 mm. No pericholecys tic fluid identified. BILIARY SYSTEM: Common bile duct measures < 7 mm. No intrahepatic biliary ductal dilation. RASCON'S SIGN: Negative. Right kidney: Right kidney is unremarkable. No evidence of renal calculi. No evidence of hydronephro sis. No renal mass or cyst identified. ASCITES: None seen. IMPRESSION: Cholelithiasis. There is a negative Rascon sign, no biliary ductal dilatation and no pericholecystic fluid. Minimal gallbladder wall thickening. DATA REPOSITORY:
[2021-06-23] MEDS: Acetaminophen 500 MG TAB 1000 MG PO ×2 (09:21→18:05)
[2021-06-23] MEDS: Gabapentin 300 MG CAP 1200 MG PO ×3 (09:22→19:31)
[2021-06-23] MEDS: dilTIAZem CD 120 MG CAPCR PO (09:22)
[2021-06-23] MEDS: Normal Saline Flush 10 ML SYR IVP (09:25)
[2021-06-23] MEDS: Pantoprazole 40 MG VIAL IVP (09:25)
[2021-06-23] MEDS: Normal Saline 1,000 ML 100 ML IV ×2 (09:26→19:43)
--- NOTE | 2021-06-23 09:51 | INITIAL_ITS ---
- If Service Date Differs Date of service: 06/23/21 Time of Service: 09:51 Care Management Initial Assess REASON FOR HOSPITALIZATION:: Acute Cholecystitis PAST MEDICAL HISTORY/PAST SURGICAL HISTORY:: Active Problem List . UTI (urinary tract infection) (Acute). Fever (Acute). Urinary retention (Acute 08/30/17). 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 BPH w urinary obs/LUTS (Acute 01/30/16). Medical History . Diabetes. HTN (hypertension). Neurogenic bladder. Surgical History . History of back surgery. History of hip surgery PREVIOUS FUNCTIONAL STATUS/SOCIAL/FAMILY SUPPORTS:: Gil lives in [place] with his forepart rasper and his daughter (and family.) He is retired, drives and is independent at baseline. CURRENT FUNCTIONAL STATUS:: Gil was sitting up in his chair when CM met with him. He was alert, oriented and easily engaged in conversation. He had an US earlier today and waiting to hear from the surgeon. CM will continue to follow. ADVANCE DIRECTIVES:: None, CM provided patient a copy to complete at his convienence. Has patient been provided with info about the portal/API?: Yes Did the patient sign up for the portal?: No CODE STATUS:: Full Code INSURANCE COVERAGE / FINANCIAL ISSUES:: [facility] [employer]. Medicare CURRENT HOME/COMMUNITY SERVICES/EQUIPMENT:: Uses a cane and walking stick-PRN PRIMARY CARE PHYSICIAN:: [facility] PATIENT/FAMILY EDUCATION NEEDS:: Review discharge instructions, limitations and plan to follow up with community providers. Ask me three. TRANSPORTATION:: Via private vehicle with family. PLAN:: Anticipate Gil will be discharged home via private vehicle with family with no new services when medically cleared by provider. He will follow up with community providers and discharge plan of care.
--- NOTE | 2021-06-23 16:10 | CHAPLAIN ---
Gil was up in his chair when I visited. He engaged in a conversation, telling me that he lives in [place] now with his daughter. Last year he spend in a camper in [place]. I left when he received a phone call.
[2021-06-23] MEDS: Insulin Aspart 300 UNITS/3 ML PEN SC (18:04)
[2021-06-23] MEDS: Enoxaparin 40 MG/0.4 ML SYR SC (18:04)
[2021-06-23 18:19] VITALS: BP 149/75; PULSE 66; RESP 20; TEMP 36.7; O2SAT 96
--- NOTE | 2021-06-23 20:31 | W.PM.HP.N ---
Date of service: 06/22/21 Time of Service: 20:32 Assessment and Plan Assessment and plan (1) Fever: Status: Acute (2) Urinary retention: Status: Acute (3) BPH w urinary obs/LUTS: Status: Acute (4) Acute cholecystitis due to biliary calculus: Status: Acute Assessment and plan: US in am PPI inc spirom abx we see how is clinically doing in the next 24 hrs (5) Neurogenic bladder: Status: Acute (6) Diabetes: Status: Acute (7) HTN (hypertension): Status: Acute History of Present Illness Consults Consult date: 06/22/21 Narrative: pt ws admitted from [facility]. He has a hx of a neurogenic bladder injury and has to self-cath. He developed severe fever/chills and thought he had a UTI and went to . He also had some RUQ adbom pain and a nl urine. CT scan was done which did show acute cholecystits. He is having minimal abdominal pain. He is very hungry. He has had no fever/chills in the past 24 hrs. He has noted some mild increase in the back pain lately. He has never had pain like this before. He is also noted to be anemic. Review of Systems All systems reviewed & are unremarkable except as noted in HPI and below PFSH Active Problem List UTI (urinary tract infection) (Acute) Fever (Acute) Urinary retention (Acute 08/30/17) Erectile dysfunction of organic origin (Acute 10/29/15) BPH w urinary obs/LUTS (Acute 01/30/16) Medical History Diabetes HTN (hypertension) Neurogenic bladder Surgical History History of back surgery History of hip surgery Family History Mother Alcohol use disorder Father , 76 Cancer Sister Alcohol use disorder Social History Smoking/Tobacco Use Status: Former Tobacco Use tobacco type: cigarettes Quit Date: 07/18/00 Tobacco: How many years used: 35 Second Hand Exposure: Yes Smoking risk assessment performed?: Yes Alcohol Intake: former Household members: significant other Housing: house Communication Needs: None Do you need help understanding health information?: Rarely Pets and animals: No Sexually active: No Do you think of yourself as: straight/heterosexual Current gender identity: male What is your relationship status?: living with partner How often do you talk on the phone with friends or family?: three or more times per week How often do you get together with friends or relatives?: three or more times per week How often do you attend latter day or jewish services?: 1-3 times per year Do you belong to any clubs or organized social groups?: no Panel score (0-1 are the most socially isolated patients): 2 What type of physical activity do you participate in: walking Duration: 60-90 minutes/day Frequency: 5-6 times per week Keshia/Mu-Ism: [employer] Special keshia needs: No Seatbelt use: always Drive intox or ride w/intox 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 Do you feel safe at home: Yes Do you feel safe in your relationship?: Yes Meds Allergies and Home Medications Allergies Allergy/AdvReac Type Severity Reaction Status Date / Time No Known Allergies Allergy Verified 06/22/21 09:23 Home Medications Medication Instructions Recorded Confirmed Type aspirin [Aspirin Low-Strength] 81 mg PO DAILY tab.chew 04/18/14 06/23/21 History atorvastatin [Lipitor] 10 mg PO DAILY tab-cap 04/18/14 06/23/21 History diltiazem HCl 120 mg PO DAILY AM tab-cap 04/18/14 06/23/21 History gabapentin 1,200 mg PO TID tab-cap 04/18/14 06/23/21 History glimepiride 1 mg PO BID 04/18/14 06/23/21 History metformin 1,000 mg PO BID tab-cap 04/18/14 06/23/21 History olmesartan [Benicar] 20 mg PO DAILY tab-cap 04/18/14 06/23/21 History omeprazole 40 mg PO DAILY tab-cap 04/18/14 06/23/21 History levofloxacin 500 mg tablet 500 mg PO DAILY #5 tab 06/22/21 06/22/21 Rx Exam Resp Effort & Inspection: normal respiratory effort and able to speak in complete sentences Auscultation: clear to auscultation bilaterally Cardio Rate: regular rate Rhythm: regular rhythm GI Palpation: soft Auscultation: normal bowel sounds Other: minimal ruq pain Results Labs Result diagrams: 06/23/21 06:58 06/23/21 06:58 Labs: Laboratory Results - last 24 hr 06/22/21 06/23/21 06/23/21 20:15 06:58 06:58 WBC 3.45 L D RBC 4.58 Hgb 10.4 L Hct 33.7 L MCV 73.6 L MCH 22.7 L MCHC 30.9 L RDW 18.0 H Plt Count 216 MPV 10.2 Immature Gran % 0.3 Neutrophils % 71.3 Lymphocytes % 14.8 Monocytes % 10.4 Eosinophils % 2.6 Basophils % 0.6 Nucleated RBC % 0 Absolute Neutrophils 2.46 Absolute Lymphocytes 0.51 L Absolute Monocytes 0.36 Absolute Eosinophils 0.09 Absolute Basophils 0.02 RBC Morphology See Below Polychromasia Present Poikilocytosis 1+ Anisocytosis 1+ Microcytosis 1+ Sodium 141 Potassium 3.5 Chloride 107 Carbon Dioxide 23.6 Anion Gap 10.4 BUN 21 H Creatinine 1.5 H Estimated GFR/1.73 m2 46.00 Glucose 129 H Calcium 8.6 Iron TIBC Transferrin % Sat Ferritin 56 Total Bilirubin 0.6 GGT 415 H AST 266 H ALT 508 H Alkaline Phosphatase 152 H Total Protein 7.2 Albumin 3.0 L TSH 1.19 COVID-19 Source Nasal/Nares SARS-CoV-2 (PCR) Negative 06/23/21 06:58 WBC RBC Hgb Hct MCV MCH MCHC RDW Plt Count MPV Immature Gran % Neutrophils % Lymphocytes % Monocytes % Eosinophils % Basophils % Nucleated RBC % Absolute Neutrophils Absolute Lymphocytes Absolute Monocytes Absolute Eosinophils Absolute Basophils RBC Morphology Polychromasia Poikilocytosis Anisocytosis Microcytosis Sodium Potassium Chloride Carbon Dioxide Anion Gap BUN Creatinine Estimated GFR/1.73 m2 Glucose Calcium Iron 20 L TIBC 286 Transferrin % Sat 7 L Ferritin Total Bilirubin GGT AST ALT Alkaline Phosphatase Total Protein Albumin TSH COVID-19 Source SARS-CoV-2 (PCR) Last Vital Signs Temp 36.7 C 06/23/21 18:19 Pulse 66 06/23/21 18:19 Resp 20 06/23/21 18:19 BP 149/75 H 06/23/21 18:19 Pulse Ox 96 06/23/21 18:19
--- NOTE | 2021-06-23 20:56 | W.PM.PROGNOT ---
Date of Service Date of service: 06/23/21 Time of Service: 16:00 Assessment and Plan Assessment and plan (1) Acute cholecystitis due to biliary calculus: Status: Acute Assessment and plan: pt is feeling better. No fevers for past 24. hungry+ wo;; try a diet and see how he feels. cont abx pulm toilet support care Pt will need to have his GB removed once the inflammation has resolved. (2) Neurogenic bladder: Status: Acute (3) Diabetes: Status: Acute (4) HTN (hypertension): Status: Acute (5) Urinary retention: Status: Acute Subjective Subjective Interval history since last seen: pt is feeling better today. no headaches. No CP or SOB. no productive cough. no dysuria. no leg pain or swelling. no abdominal pain or nausea. He is very hungry. Exam Chest Chest: normal inspection of the chest and normal palpation of entire chest wall Breast inspection: normal inspection of the breasts Resp Effort & Inspection: normal respiratory effort and able to speak in complete sentences Auscultation: clear to auscultation bilaterally Cardio Rate: regular rate Rhythm: regular rhythm GI Inspection: normal to inspection Auscultation: normal bowel sounds Other: pt denies any abdominal pain today Extrem General: no clubbing, cyanosis or edema Objective Last Vital Signs Temp 36.7 C 06/23/21 18:19 Pulse 66 06/23/21 18:19 Resp 20 06/23/21 18:19 BP 149/75 H 06/23/21 18:19 Pulse Ox 96 06/23/21 18:19 Laboratory Results - last 24 hr 06/22/21 06/23/21 06/23/21 20:15 06:58 06:58 WBC 3.45 L D RBC 4.58 Hgb 10.4 L Hct 33.7 L MCV 73.6 L MCH 22.7 L MCHC 30.9 L RDW 18.0 H Plt Count 216 MPV 10.2 Immature Gran % 0.3 Neutrophils % 71.3 Lymphocytes % 14.8 Monocytes % 10.4 Eosinophils % 2.6 Basophils % 0.6 Nucleated RBC % 0 Absolute Neutrophils 2.46 Absolute Lymphocytes 0.51 L Absolute Monocytes 0.36 Absolute Eosinophils 0.09 Absolute Basophils 0.02 RBC Morphology See Below Polychromasia Present Poikilocytosis 1+ Anisocytosis 1+ Microcytosis 1+ Sodium 141 Potassium 3.5 Chloride 107 Carbon Dioxide 23.6 Anion Gap 10.4 BUN 21 H Creatinine 1.5 H Estimated GFR/1.73 m2 46.00 Glucose 129 H Calcium 8.6 Iron TIBC Transferrin % Sat Ferritin 56 Total Bilirubin 0.6 GGT 415 H AST 266 H ALT 508 H Alkaline Phosphatase 152 H Total Protein 7.2 Albumin 3.0 L TSH 1.19 COVID-19 Source Nasal/Nares SARS-CoV-2 (PCR) Negative 06/23/21 06:58 WBC RBC Hgb Hct MCV MCH MCHC RDW Plt Count MPV Immature Gran % Neutrophils % Lymphocytes % Monocytes % Eosinophils % Basophils % Nucleated RBC % Absolute Neutrophils Absolute Lymphocytes Absolute Monocytes Absolute Eosinophils Absolute Basophils RBC Morphology Polychromasia Poikilocytosis Anisocytosis Microcytosis Sodium Potassium Chloride Carbon Dioxide Anion Gap BUN Creatinine Estimated GFR/1.73 m2 Glucose Calcium Iron 20 L TIBC 286 Transferrin % Sat 7 L Ferritin Total Bilirubin GGT AST ALT Alkaline Phosphatase Total Protein Albumin TSH COVID-19 Source SARS-CoV-2 (PCR)
[2021-06-23 22:42] VITALS: BP 144/81; PULSE 55; RESP 18; TEMP 35.4; O2SAT 93
[2021-06-24] MEDS: Acetaminophen 500 MG TAB 1000 MG PO (01:42)
[2021-06-24] MEDS: Normal Saline 1,000 ML 100 ML IV (05:10)
[2021-06-24] MEDS: PIPERACILLIN/TAZO 3.375 GM in Normal Saline 50 ML IVPB (05:53)
--- NOTE | 2021-06-24 07:27 | W.PM.PROGNOT ---
Date of Service Date of service: 06/24/21 Time of Service: 07:27 Assessment and Plan Assessment and plan (1) Acute cholecystitis due to biliary calculus: Status: Acute Assessment and plan: Patient continues to feel well. No fevers over night Tolerated clear liquid diet yesterday, will progress to low fat reg. diet this morning. Encouraged activity OOB, ambulation and sitting in the chair for all meals. cont abx pulm toilet support care Pt will need to have his GB removed once the inflammation has resolved. (2) Neurogenic bladder: Status: Acute (3) Diabetes: Status: Acute (4) HTN (hypertension): Status: Acute (5) Urinary retention: Status: Acute Subjective Subjective Interval history since last seen: Patient tolerated clear liquid diet without any nausea, vomiting or abdominal pain. He denies having any abdominal pain after eating or over night. Denies any fevers or chills. Exam Const General: cooperative, healthy appearing and comfortable Orientation: alert and oriented x3 Resp Effort & Inspection: normal respiratory effort, no audible wheezes and no cough GI Palpation: soft, no guarding and nontender Objective Last Vital Signs Temp 35.4 C L 06/23/21 22:42 Pulse 55 L 06/23/21 22:42 Resp 18 06/23/21 22:42 BP 144/81 H 06/23/21 22:42 Pulse Ox 93 06/23/21 22:42 Laboratory Results - last 24 hr 06/23/21 06/23/21 06/23/21 06:58 06:58 06:58 WBC 3.45 L D RBC 4.58 Hgb 10.4 L Hct 33.7 L MCV 73.6 L MCH 22.7 L MCHC 30.9 L RDW 18.0 H Plt Count 216 MPV 10.2 Immature Gran % 0.3 Neutrophils % 71.3 Lymphocytes % 14.8 Monocytes % 10.4 Eosinophils % 2.6 Basophils % 0.6 Nucleated RBC % 0 Absolute Neutrophils 2.46 Absolute Lymphocytes 0.51 L Absolute Monocytes 0.36 Absolute Eosinophils 0.09 Absolute Basophils 0.02 RBC Morphology See Below Polychromasia Present Poikilocytosis 1+ Anisocytosis 1+ Microcytosis 1+ Sodium 141 Potassium 3.5 Chloride 107 Carbon Dioxide 23.6 Anion Gap 10.4 BUN 21 H Creatinine 1.5 H Estimated GFR/1.73 m2 46.00 Glucose 129 H Calcium 8.6 Iron 20 L TIBC 286 Transferrin % Sat 7 L Ferritin 56 Total Bilirubin 0.6 GGT 415 H AST 266 H ALT 508 H Alkaline Phosphatase 152 H Total Protein 7.2 Albumin 3.0 L TSH 1.19
[2021-06-24 07:39] VITALS: BP 163/89; PULSE 56; RESP 18; TEMP 36.4; O2SAT 97
[2021-06-24] MEDS: Gabapentin 300 MG CAP 1200 MG PO ×2 (08:13→14:50)
[2021-06-24] MEDS: Pantoprazole 40 MG VIAL IVP (08:13)
[2021-06-24] MEDS: dilTIAZem CD 120 MG CAPCR PO (08:14)
--- NOTE | 2021-06-24 09:40 | W.PM.DS.N ---
Documented by User: SHANI Ugalde 06/24/21 09:55 Date of service: 06/24/21 Time of Service: 09:40 DS: Diagnosis Discharge Diagnosis (1) Acute cholecystitis due to biliary calculus: Status: Acute (2) Neurogenic bladder: (3) Diabetes: (4) HTN (hypertension): (5) Urinary retention: Status: Acute Discharge Plan Disposition Patient Disposition: HOME Condition: Good Discharge Details Reason For Visit: Acute Cholecystitis/Cholelithiasis Admit Date/Time: 06/22/21 17:46 Admit Provider: Yani Lopez Attending Provider: Yani Lopez Primary Care Provider: Magen Cantu Hospital Course Hospital Course: 71 y/o male was admitted for acute cholecystitis noted on CT scan following work up for severe fever, chills, RUQ pain. Patient was admitted to begin IV antibiotics (Zosyn) and pain control. Patient had improvement over the course of his 2 day admission. Abdominal pain progressively improved and resolved. Abdominal US was remarkable for minimal gallbladder wall thickening and gallstones. Patient was started on clear liquid diet and progressed to low fat diet, which he tolerated well. Without any nausea, vomiting or return of his abdominal complaints. Discussed following a low fat diet upon d/c, strongly emphasizing avoiding dairy products, butter, oils, nuts and avocado. D/C home. He will need to follow up with Dr. Lopez to discuss proceeding with Cholecystectomy. Home Meds and New Rx's Prescriptions: New amoxicillin-pot clavulanate [Augmentin] 875-125 mg tablet 1 tab PO BID Qty: 14 RF: 0 Continued metformin 500 MG tablet 1,000 mg PO BID RF: 0 atorvastatin [Lipitor] 10 MG tablet 10 mg PO DAILY RF: 0 glimepiride 1 MG tablet 1 mg PO BID RF: 0 gabapentin 300 MG capsule 1,200 mg PO TID RF: 0 omeprazole 20 MG capsule,delayed release(DR/EC) 40 mg PO DAILY RF: 0 aspirin [Aspirin Low-Strength] 81 MG tablet,chewable 81 mg PO DAILY RF: 0 diltiazem HCl 60 MG tablet 120 mg PO DAILY AM RF: 0 olmesartan [Benicar] 20 MG tablet 20 mg PO DAILY RF: 0 Discontinued levofloxacin 500 mg tablet 500 mg PO DAILY Qty: 5 RF: 0 Discharge Instructions Instructions: Cholecystitis (DC), Gallstones (DC), Low Fat Diet (DC) Additional Instructions: Activity at Home after surgery: 1. As tolerated Diet, Nutrition, & wound healin. Low fat diet Pain Medications: 1. Tylenol 650mg every 6 hours as needed and Ibuprofen 600 mg every 6 hours as needed. You may alternate between the 2 medications every 3 hours For Constipation: 1. Take Milk of Magnesia or MiraLax as needed for constipation Please call our office if you develop: 1. Fevers >101.5 2. Nausea or Vomiting 3. Worsening pain If after hours please call the Hospital at and ask to speak to the on-call surgeon Referrals: Yani Lopez DO [OSTEOPATHIC DOCTOR] - 06/29/21 9:00 am Activity:: Activity as Tolerated Equipment/Supplies:: No Equipment Needed Diet:: Low Fat Diet Discharge Orders Discharge Orders: Discharge Order (Routine); Ordered 06/24/21 Ordered By: Aicha Caballero DS: Summary Time Spent with Patient providing and/or coordinating discharge services: Greater than 30 minutes Status at Discharge Functional status at discharge: independent ambulation Overall status at discharge: patient is back to baseline Mental Status: mental status grossly normal Speech and Movement: speech and movement normal Mood: congruent mood Affect: normal affect Exam Const General: cooperative, healthy appearing and comfortable Orientation: alert and oriented x3 Resp Effort & Inspection: normal respiratory effort, no audible wheezes and no cough GI Inspection: normal to inspection and obesity Palpation: soft, no guarding and nontender Psych Mental Status: mental status grossly normal Speech and Movement: speech and movement normal Mood: congruent mood Affect: normal affect DS: Data Vitals/I&O Vitals and I&O: Vital Signs Temperature 36.4 C L 06/24/21 07:39 Temperature Source Tympanic 06/24/21 07:39 Pulse 56 L 06/24/21 07:39 Pulse Rhythm Regular 06/24/21 08:01 Respiratory Rate 18 06/24/21 07:39 Respiratory Effort Non-Labored 06/24/21 08:01 Respiratory Depth Normal 06/24/21 08:01 Respiratory Pattern Normal 06/24/21 08:01 Blood Pressure 163/89 H 06/24/21 07:39 Pulse Oximetry 97 12/08/21 07:39 Oxygen Delivery Method Room Air 06/24/21 07:39 Oxygen Flow Rate 0 06/24/21 07:39 Pain Level 0 06/23/21 18:19 Intake & Output 06/23/21 06/24/21 06/24/21 18:59 06:59 18:59 Intake Total 1050 / 3095 2045 / 3095 393.333 / 393.333 Output Total 400 / 400 Balance 650 / 2695 2045 / 2695 393.333 / 393.333 Intake: IV 1050 / 3095 2045 / 3095 393.333 / 393.333 Output: Urine 400 / 400 Other: Urine Color Pale Yellow Urine Appearance Clear Comment per patient he has been voiding all day Voiding Methods Toilet Data Completed and Pending Labs on day of discharge: Preliminary micro results at discharge 06/22/21 20:18 Blood Culture - Preliminary Blood NO GROWTH 24 HOURS 06/22/21 20:15 Blood Culture - Preliminary Blood NO GROWTH 24 HOURS PFSH Active Problem List (Updated 06/24/21 @ 14:23 by Aicha Caballero MD) Acute cholecystitis due to biliary calculus (Acute) Fever (Acute) Urinary retention (Acute 08/30/17) Medical History (Updated 06/24/21 @ 14:23 by Aicha Caballero MD) BPH w urinary obs/LUTS (01/30/16) Diabetes 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) HTN (hypertension) Neurogenic bladder UTI (urinary tract infection) Surgical History History of back surgery History of hip surgery Family History Mother Alcohol use disorder Father , 76 Cancer Sister Alcohol use disorder Social History Smoking/Tobacco Use Status: Former Tobacco Use tobacco type: cigarettes Quit Date: 07/18/00 Tobacco: How many years used: 35 Second Hand Exposure: Yes Smoking risk assessment performed?: Yes Alcohol Intake: former Household members: significant other Housing: house Communication Needs: None Do you need help understanding health information?: Rarely Pets and animals: No Sexually active: No Do you think of yourself as: straight/heterosexual Current gender identity: male What is your relationship status?: living with partner How often do you talk on the phone with friends or family?: three or more times per week How often do you get together with friends or relatives?: three or more times per week How often do you attend christian or congregation services?: 1-3 times per year Do you belong to any clubs or organized social groups?: no Panel score (0-1 are the most socially isolated patients): 2 What type of physical activity do you participate in: walking Duration: 60-90 minutes/day Frequency: 5-6 times per week Keshia/Worship: Sikhism Special keshia needs: No Seatbelt use: always Drive intox or ride w/intox putaway driver: No Do you feel safe at home: Yes Do you feel safe in your relationship?: Yes Documented by User: Aicha Caballero MD 06/24/21 14:28 Discharge Plan Disposition Patient Disposition: HOME Condition: Good Discharge Details Reason For Visit: Acute Cholecystitis/Cholelithiasis Admit Date/Time: 06/22/21 17:46 Admit Provider: Yani Lopez Attending Provider: Yani Lopez Primary Care Provider: Magen Cantu Hospital Course Hospital Course: 71 y/o male was admitted for acute cholecystitis noted on CT scan following work up for severe fever, chills, RUQ pain. Patient was admitted to begin IV antibiotics (Zosyn) and pain control. Patient had improvement over the course of his 2 day admission. Abdominal pain progressively improved and resolved. Abdominal US was remarkable for minimal gallbladder wall thickening and gallstones. Patient was started on clear liquid diet and progressed to low fat diet, which he tolerated well. Without any nausea, vomiting or return of his abdominal complaints. Discussed following a low fat diet upon d/c, strongly emphasizing avoiding dairy products, butter, oils, nuts and avocado. D/C home. He will need to follow up with Dr. Stoiber to discuss proceeding with Cholecystectomy. Home Meds and New Rx's Prescriptions: New amoxicillin-pot clavulanate [Augmentin] 875-125 mg tablet 1 tab PO BID Qty: 14 RF: 0 Continued metformin 500 MG tablet 1,000 mg PO BID RF: 0 atorvastatin [Lipitor] 10 MG tablet 10 mg PO DAILY RF: 0 glimepiride 1 MG tablet 1 mg PO BID RF: 0 gabapentin 300 MG capsule 1,200 mg PO TID RF: 0 omeprazole 20 MG capsule,delayed release(DR/EC) 40 mg PO DAILY RF: 0 aspirin [Aspirin Low-Strength] 81 MG tablet,chewable 81 mg PO DAILY RF: 0 diltiazem HCl 60 MG tablet 120 mg PO DAILY AM RF: 0 olmesartan [Benicar] 20 MG tablet 20 mg PO DAILY RF: 0 Discontinued levofloxacin 500 mg tablet 500 mg PO DAILY Qty: 5 RF: 0 Discharge Instructions Instructions: Cholecystitis (DC), Gallstones (DC), Low Fat Diet (DC) Additional Instructions: Activity at Home after surgery: 1. As tolerated Diet, Nutrition, & wound healin. Low fat diet Pain Medications: 1. Tylenol 650mg every 6 hours as needed and Ibuprofen 600 mg every 6 hours as needed. You may alternate between the 2 medications every 3 hours For Constipation: 1. Take Milk of Magnesia or MiraLax as needed for constipation Please call our office if you develop: 1. Fevers >101.5 2. Nausea or Vomiting 3. Worsening pain If after hours please call the Hospital at and ask to speak to the on-call surgeon Referrals: Yani Lopez DO [OSTEOPATHIC DOCTOR] - 06/29/21 9:00 am Activity:: Activity as Tolerated Equipment/Supplies:: No Equipment Needed Diet:: Low Fat Diet Discharge Orders Discharge Orders: Discharge Order (Routine); Ordered 06/24/21 Ordered By: Aicha Caballero [facility] Active Problem List (Updated 06/24/21 @ 14:23 by Aicha Caballero MD) Acute cholecystitis due to biliary calculus (Acute) Fever (Acute) Urinary retention (Acute 08/30/17) Medical History (Updated 06/24/21 @ 14:23 by Aicha Caballero MD) BPH w urinary obs/LUTS (01/30/16) Diabetes 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) HTN (hypertension) Neurogenic bladder UTI (urinary tract infection) Surgical History History of back surgery History of hip surgery Family History Mother Alcohol use disorder Father , 76 Cancer Sister Alcohol use disorder Social History Smoking/Tobacco Use Status: Former Tobacco Use tobacco type: cigarettes Quit Date: 07/18/00 Tobacco: How many years used: 35 Second Hand Exposure: Yes Smoking risk assessment performed?: Yes Alcohol Intake: former Household members: significant other Housing: house Communication Needs: None Do you need help understanding health information?: Rarely Pets and animals: No Sexually active: No Do you think of yourself as: straight/heterosexual Current gender identity: male What is your relationship status?: living with partner How often do you talk on the phone with friends or family?: three or more times per week How often do you get together with friends or relatives?: three or more times per week How often do you attend christian or congregation services?: 1-3 times per year Do you belong to any clubs or organized social groups?: no Panel score (0-1 are the most socially isolated patients): 2 What type of physical activity do you participate in: walking Duration: 60-90 minutes/day Frequency: 5-6 times per week Keshia/Worship: Sikhism Special keshia needs: No Seatbelt use: always Drive intox or ride w/intox putaway driver: No Do you feel safe at home: Yes Do you feel safe in your relationship?: Yes
[2021-06-24 10:21] LABS: Path Consult (Tech Order) SEE COMENT
[2021-06-24] MEDS: Insulin Aspart 300 UNITS/3 ML PEN SC (11:40)
--- NOTE | 2021-06-24 15:28 | PHACLINREV_ITS ---
Pharmacy Admission Review - Admission Clinical Review (Last Updated 06/24/21 @ 14:23 by Aicha Caballero MD) Acute cholecystitis due to biliary calculus (Acute) Fever (Acute) Urinary retention (Acute 08/30/17) No Known Allergies Allergy (Verified 06/22/21 09:23) Resuscitation Status Full Code Height 5 ft 8 in Weight 101.2 kg - Renal Dosing Renal Dosing: BUN 21 mg/dL (7-18) H 06/23/21 06:58 Creatinine 1.5 mg/dL (0.70-1.30) H 06/23/21 06:58 Medications needing adjustments: Reviewed (SCr: 1.5, CrCl~51.3mL/min (using adjusted body weight).) - Anticoagulation Anticoagulation: Hgb 10.4 g/dL (13.5-17.5) L 06/23/21 06:58 Hct 33.7 % (40.0-50.0) L 06/23/21 06:58 Plt Count 216 10^3/uL (130-400) 06/23/21 06:58 Creatinine 1.5 mg/dL (0.70-1.30) H 06/23/21 06:58 - Opiate Usage Evaluate Pain Scale/Pains Meds: Reviewed (Morphine 2mg IVP PRN) Scheduled Bowel Reg ordered if on Opiates?: No - Relevant Labs Sodium 141 mmol/L (136-145) 06/23/21 06:58 Potassium 3.5 mmol/L (3.5-5.1) 06/23/21 06:58 Chloride 107 mmol/L (98-107) 06/23/21 06:58 - DM Control DM Control: Glucose 129 mg/dL (74-106) H 06/23/21 06:58 Finger Stick Blood Glucose 235 Finger Stick Blood Glucose 235 Finger Stick Blood Glucose 235 Finger Stick Blood Glucose 113 Finger Stick Blood Glucose 113 Finger Stick Blood Glucose 113 - Heart Failure/WV EF%, LUCILA's, B-Blockers, Diuretics: N/A - BP Control BP Control: Blood Pressure 163/89 If elevated: Reviewed (Blood pressure slightly elevated this admission.) List meds needing interventions: Furosemide 20mg daily not ordered. Olmesartan 20mg daily - patient's own medication (not brought in yet). - Qtc Review If Elevated: N/A (No QTc recorded this admission.) - IV to PO Switch IV Medications: Reviewed - Home Meds Home Med List reviewed: Reviewed (Atorvastatin 80mg daily, Duloxetine 60mg BID, Furosemide 20mg daily, Metformin 1000mg BID and Glimepiride 2mg daily not order ed (sliding scale insulin aspart ordered).) - Current meds Current Medication Order Review: Reviewed - Comments Comments/Follow Ups: Continue to monitor vitals, labs and for medication changes.
--- NOTE | 2021-06-24 16:52 | PDOC.CMDIS ---
- If Service Date Differs Date of service: 06/24/21 Time of Service: 16:52 LACE Index Scoring Tool - Questions: Length of Stay (in days): 2 Acuity (Admit via E.D.?): No Comorbidities: Diabetes w/o Complication E.D. Visits: 2 - Answers: Total Score: 5 Risk of Readmission: Low Risk Care Management Discharge Reason for Hospitalization: Acute Cholecystitis Discharge Plan: Discharge home via private vehicle with family with no new services. Follow up with surgery as an outpatient, community providers and discharge plan of care as prescribed. Patient/Family Education Needs: Review discharge instructions, limitations and plan to follow up with community providers. ask me three.
== END 2021-06-24 15:34 | disposition home or self-care (01) | DRG 446 ==
PROVIDERS: Admitting Provider Surgery; PCP Family Medicine; Visit Provider Surgery
DX: K80.00 Calculus of gallbladder with acute cholecystitis without obstruction (principal); E11.9 Type 2 diabetes mellitus without complications; I10 Essential (primary) hypertension; R33.9 Retention of urine, unspecified; N31.9 Neuromuscular dysfunction of bladder, unspecified; Z20.822 Contact with and (suspected) exposure to COVID-19; N40.1 Benign prostatic hyperplasia with lower urinary tract symptoms
CPT/HCPCS: 36410; 36415; 80053; 85027; 87040; 87635; J1650; 76705; 82728; 82977; 83540; 83550; 84443; 85025; J2543

== ENCOUNTER → 2021-06-29 08:51 | Outpatient (BNVA) | payer MEDICARE, SELFPAY | PROVIDERS: PCP Family Medicine; Referring Provider Family Medicine; Visit Provider Surgery | DX: K80.00 Calculus of gallbladder with acute cholecystitis without obstruction (principal); K21.9 Gastro-esophageal reflux disease without esophagitis; E11.40 Type 2 diabetes mellitus with diabetic neuropathy, unspecified; J44.9 Chronic obstructive pulmonary disease, unspecified; N31.9 Neuromuscular dysfunction of bladder, unspecified | CPT/HCPCS: 99212; 99214 ==

== ENCOUNTER 2021-07-20 01:27 | Outpatient (CLI) | payer MEDICARE, SELFPAY ==
[2021-07-20 11:03] LABS: Source Nasal/Nares
[2021-07-20 14:29] LABS: COVID-19 PCR Negative (Negative)
== END 2021-07-20 01:28 | disposition home or self-care (01) ==
LOC: LBO 01:27
PROVIDERS: PCP Family Medicine; Visit Provider Surgery
DX: Z20.822 Contact with and (suspected) exposure to COVID-19 (principal)
CPT/HCPCS: 87635

== ENCOUNTER 2021-07-21 07:30 | Day surgery (SDC) | payer MEDICARE, SELFPAY ==
[2021-07-21] VITALS (7 sets, daily range): BP systolic 98–144; BP diastolic 63–91; PULSE 58–75; RESP 11–20; TEMP 36–36.9; O2SAT 93–99; BMI 33.6
--- NOTE | 2021-07-21 08:04 | W.ANESPRE ---
General Info Date of Service Date Performed: 07/21/21 Height: 5 ft 7.5 in Weight: 98.94 kg Body Mass Index (BMI): 33.6 Surgical Procedure: Operation Date: 07/21/21 09:10 Proposed Procedures Side Surgeon p Cholecystectomy Laparoscopic Cholangio, poss. Open Yani Lopez, DO Meds Allergies and Home Medications Allergies Allergy/AdvReac Type Severity Reaction Status Date / Time No Known Allergies Allergy Verified 07/21/21 07:58 Home Medication Medication Instructions Recorded aspirin [Aspirin Low-Strength] 81 mg PO DAILY tab.chew 04/18/14 gabapentin 1,200 mg PO TID tab-cap 04/18/14 glimepiride 2 mg PO BID 04/18/14 metformin 1,000 mg PO BID tab-cap 04/18/14 olmesartan [Benicar] 20 mg PO DAILY tab-cap 04/18/14 omeprazole 40 mg PO DAILY tab-cap 04/18/14 atorvastatin 80 mg PO DAILY 06/24/21 diltiazem HCl [Cartia XT] 120 mg PO DAILY 06/24/21 duloxetine 60 mg PO BID 06/24/21 furosemide 20 mg PO DAILY 06/24/21 ammonium lactate 12 % topical cream 1 applic TOPICAL DAILY 06/29/21 cephalexin 250 mg tablet 250 mg PO DAILY tab 06/29/21 multivitamin 1 tab PO DAILY 06/29/21 Current Visit Medications: Current Medications Generic Name Dose Route Start Last Admin Trade Name Freq PRN Reason Stop Dose Admin Acetaminophen 1,000 mg 07/21/21 06:00 Acetaminophen 500 Mg Tab PO 07/21/21 23:59 PREOP TATUM Gabapentin 600 mg 07/21/21 06:00 Gabapentin 300 Mg Cap PO 07/21/21 23:59 PREOP TATUM Piperacillin Sod/Tazobactam 50 mls @ 100 mls/hr 07/21/21 06:00 Sod 3.375 gm/ Sodium Chloride IVPB 07/21/21 23:59 PREOP TATUM Ringer's Solution 1,000 mls @ 100 mls/hr 07/21/21 06:00 IV 07/21/21 23:59 INFUSION TATUM IV Miscellaneous Supplies 1 each 07/21/21 06:00 Iv Access IV 07/21/21 23:59 DIRECTED TATUM Sodium Chloride 0 ml 07/21/21 06:00 Normal Saline Flush 10 Ml Syr IV 07/21/21 23:59 PRN PRN Sodium Chloride 0 ml 07/21/21 06:00 Normal Saline 10 Ml Vial IJ 07/21/21 23:59 DIRECTED PRN Sterile Water 0 ml 07/21/21 06:00 Water,Injection,Sterile 10 Ml Vial IJ 07/21/21 23:59 DIRECTED PRN PFSH Active Problems Active Problems: Problem Status Onset Code History of smoking Z87.891 Neurogenic bladder ~12/27/18 N31.9 Type 2 diabetes mellitus with diabetic neuropathy, unspecified E11.40 COPD (chronic obstructive pulmonary disease) J44.9 CAD (coronary artery disease) I25.10 Actinic keratoses L57.0 Chronic low back pain M54.50, G89.29 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 Chronic kidney disease N18.9 Recurrent UTI N39.0 Bilateral carpal tunnel syndrome G56.03 Brachial neuritis M54.12 Cervical spondylosis with radiculopathy M47.22 Ulcer of lower extremity ~01/25/20 L97.909 Rosacea L71.9 GERD (gastroesophageal reflux disease) K21.9 Barretts esophagus K22.70 PVD (peripheral vascular disease) ~12/09/20 I73.9 Body mass index exceeds 30 Gout M10.9 Hyperlipidemia E78.5 Squamous cell carcinoma of skin C44.92 Acute cholecystitis due to biliary calculus K80.00 Urinary retention 08/30/17 R33.9 Medical History Medical History BPH w urinary obs/LUTS (01/30/16) Diabetes 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) HTN (hypertension) UTI (urinary tract infection) Surgical History Surgical History History of appendectomy (~07/18/1958) History of back surgery History of endoscopy (~05/24/17) w/ biopsy- 03/21/18, 09/19/18, 03/27/19, 04/22/20 History of esophagogastroduodenoscopy (EGD) (~04/22/20) History of foot surgery (~07/18/08) right foot History of hip surgery History of incision and drainage (~07/18/90) perianal abscess- w/ internal sphincterotomy History of shoulder surgery (~07/18/74) History of surgical removal of pilonidal cyst Tobacco Smoking/Tobacco Use Status: Former Tobacco Use Tobacco: How many years used: 35 Second hand exposure: Yes Alcohol Alcohol Intake: former Substance Use Substance use: Never Substance use type: does not use Vital Signs and Lab Results Vital Signs Most Recent Vital Signs in EMR: Most Recent Vital Signs Temp Pulse Resp BP Pulse Ox 36.3 C L 75 20 144/91 H 99 07/21/21 07:42 07/21/21 07:42 07/21/21 07:42 07/21/21 07:42 07/21/21 07:42 Lab Results Blood Type / Crossmatch: No Data to Display Complete Blood Count: White Blood Count 3.45 10^3/uL (4.4-10.8) L 06/23/21 06:58 06/23/21 Red Blood Count 4.58 10^6/uL (4.36-5.78) 06/23/21 06:58 06/23/21 Hemoglobin 10.4 g/dL (13.5-17.5) L 06/23/21 06:58 06/23/21 Hematocrit 33.7 % (40.0-50.0) L 06/23/21 06:58 06/23/21 Platelet Count 216 10^3/uL (130-400) 06/23/21 06:58 06/23/21 Complete Metabolic Panel: Sodium Level 141 mmol/L (136-145) 06/23/21 06:58 06/23/21 Potassium Level 3.5 mmol/L (3.5-5.1) 06/23/21 06:58 06/23/21 Chloride Level 107 mmol/L (98-107) 06/23/21 06:58 06/23/21 Carbon Dioxide Level 23.6 mmol/L (21.0-32.0) 06/23/21 06:58 06/23/21 Blood Urea Nitrogen 21 mg/dL (7-18) H 06/23/21 06:58 06/23/21 Creatinine 1.5 mg/dL (0.70-1.30) H 06/23/21 06:58 06/23/21 Estimated GFR/1.73 m2 46.00 (mL/min/1.73m2) 06/23/21 06:58 06/23/21 Calcium Level 8.6 mg/dL (8.5-10.1) 06/23/21 06:58 06/23/21 Albumin 3.0 g/dL (3.4-5.0) L 06/23/21 06:58 06/23/21 Glucose Level 129 mg/dL (74-106) H 06/23/21 06:58 06/23/21 Liver Function Panel: Alanine Aminotransferase (ALT/SGPT) 508 U/L (16-63) H 06/23/21 06:58 06/23/21 Aspartate Amino Transf (AST/SGOT) 266 U/L (15-37) H 06/23/21 06:58 06/23/21 Gamma Glutamyl Transpeptidase 415 U/L (15-85) H 06/23/21 06:58 06/23/21 Coagulation Panel: No Data to Display Cardiac Panel: No Data to Display Arterial Blood Gas: No Data to Display Venous Blood Gas: No Data to Display Pancreas Panel: Lipase 170 U/L (73-393) 06/22/21 11:20 06/22/21 Thyroid Panel: Thyroid Stimulating Hormone (TSH) 1.19 uIU/mL (0.36-3.74) 06/23/21 06:58 06/23/21 Infectious Disease: Coronavirus (COVID-19)(PCR) Negative (Negative) 07/20/21 09:16 07/20/21 Coronavirus 2019 Source Nasal/Nares 07/20/21 09:16 07/20/21 Hepatitis B Surface Antigen Negative (Negative) 06/22/21 12:20 06/22/21 Hepatitis C Antibody Negative (Negative) 06/22/21 12:20 06/22/21 Blood Cultures: No Data to Display Toxicology Panel: No Data to Display Anesthesia Assessment and Plan Anesthesia History Personal History: No History of Anesthesia Complications Family History: No Family History of Anesthesia Complications Exercise Tolerance Exercise Tolerance: Metabolic Equivalents>4 Pertinent Negatives Pertinent Negatives: No Symptoms of GERD (Well controlled with meds) Cardiac & Pulmonary Exam Cardiac Exam: Normal S1/S2 Heart Sounds Pulmonary Exam: Clear Bilateral Breath Sounds Implantable Cardiac Device Does patient have a Pacemaker or an ICD?: No Airway Exam Known Difficult Airway: No Mallampati Class: 3 Mouth Opening: Normal (> 3cm) Thyromental Distance: Greater than 3 cm Neck Range of Motion: Full ROM Neck Circumference: Normal Teeth Condition: Normal Dentition, Removable Dentures/Plates Upper and Removable Dentures/Plates Lower (Partial) ASA Classification ASA Score: ASA 2 Emergency Case?: No NPO Status NPO Status: NPO Clears >2 hours, Solids >8 hours Anesthesia Plan Resuscitation Status: Full Code Anesthesia Technique: General Anesthesia Airway Planned: Endotracheal Tube Monitors Used: Standard Monitors
[2021-07-21] MEDS: Acetaminophen 500 MG TAB 1000 MG PO (08:14)
[2021-07-21] MEDS: Lactated Ringers 1,000 ML 100 ML IV (08:29)
--- NOTE | 2021-07-21 08:45 | ROE_ITS ---
Date of service: 07/21/21 Time of Service: 08:45 Operative Note Operative Note DATE OF PROCEDURE: 07/21/21 PRE-OP DIAGNOSIS: acute davy w/ stones POST-OP DIAGNOSIS: same SURGEON: Yani Key [employer] MANAGER: Sandra Joseph Refer to Anesthesia Record Procedure Description: Informed consent was obtained, explaining risks and benefits of the procedure including but not limited to bleeding, infection, pneumonia, blood clots, possible damage to bowel, bladder, blood vessels, bile ducts, possible open procedure, complications of general anesthesia and other unforetold complications. PROCEDURE: The patient agrees and is brought to the operative room suite and placed in supine position. Anesthesia was administered per the Department of Anesthesia. The patient did receive IV antibiotics. NG tube and Mcfadden catheter are placed. The patient was prepped and draped in the usual sterile fashion using DuraPrep scrub solution. Pause for the cause was done. 20 mL of 1% buffered lidocaine was used for local anesthetization. A stab incision was made in the umbilicus and the Verres inserted. Drop test was positive and insufflation was begun. When 15 mm of pressure was noted on the monitor, the Veress was removed and #5 port inserted. The camera was inserted through the port and shows no damage to underlying structures. A 10 mm port was then placed in the epigastric position under direct visualization following creation of local field blocks as well as two 5 mm ports in the right upper quadrant has adhesions up to the anterior abdominal wall. These are taken down with blunt dissection. Clips and electrocautery used to provide hemostasis.. The gallbladder fundus was grasped and retracted towards the right shoulder. Infundibulum was grasped and retracted laterally. The hepat-duodenal ligament is entered. The cystic duct and artery are dissected out and the most inferior portion of the gallbladder plate is re moved from the liver and the critical view of safety was obtained after clearing away all fatty material. Endo Clips were placed across the duct and artery and these structures are divided. The remainder of the gallbladder was excised from the liver bed. The gallbladder was placed in a bag and brought out. Examination of the gallbladder shows indeed the cystic duct and artery to have been divided. The gallbladder was very intrahepatic. FloSeal was placed in the liver bed to aid with little coagulation. The remainder of the abdomen was copiously irrigated with a liter of saline. All saline is removed. There is no bleeding or bile leakage from the liver bed or the clips sites. An EndoClose needle was used to close the 10 mm port site with an 0 Vicryl. All ports and instruments are removed. SPonge and needle counts are correct. Pneumoperitoneum is evacuated and the port sites are monitored to make sure there is no bleeding at the time of desufflation. The epigastric port site is instilled w/ 10cc Experel at the time of closure. Port sites are irrigated and the skin is closed with 4-0 Monocryl in a running subcuticular fashion. Skin glue sterile dressings are applied. The patient tolerated the procedure well without complications, transferred to the recovery room in stable condition. YANI KEY, DO
[2021-07-21] MEDS: PIPERACILLIN/TAZO 3.375 GM in Normal Saline 50 ML IVPB (09:01)
--- NOTE | 2021-07-21 09:44 | GB_PTH ---
PATIENT: Gil Castaneda LOC: ED U#:[id number] AGE/SX: 71/M ROOM: RE07/21/[address]: Yani Lopez : 1950 BED: DIS: 07/21/2021 SPEC #: [id number] RECD: 07/21/21 12:52 STATUS: MICHAEL RELicha #: [id number] CHARLEY: 07/21/21 09:[address]: Yani Lopez DEPT: Surgical Specimen RECD BY: Velia Monsivais ENTERED: 07/21/21 12:52 SP TYPE: GB OTHR DR: Magen Cantu Tissues: 1 - GALLBLADDER Procedures: GROSS AND MICRO LEVEL 3 Comments: [id number]
[2021-07-21] MEDS: Bupivacaine 0.25% Pres-Free 30 ML VIAL (10:21)
--- NOTE | 2021-07-21 10:55 | PDOC.DSDIS_ITS ---
Discharge Plan Disposition Patient Disposition: HOME Condition: Good Discharge Details Reason For Visit: gallbladder Attending Provider: Yani Lopez Primary Care Provider: Magen Cantu Home Meds and New Rx's Prescriptions: New tramadol [Ultram] 50 mg tablet 50 mg PO Q6H PRNQty: 14 RF: 0 ondansetron HCl [Zofran] 4 mg tablet 4 mg PO Q6H PRNQty: 4 RF: 0 Continued metformin 500 MG tablet 1,000 mg PO BID RF: 0 glimepiride 1 MG tablet 2 mg PO BID RF: 0 gabapentin 300 MG capsule 1,200 mg PO TID RF: 0 omeprazole 20 MG capsule,delayed release(DR/EC) 40 mg PO DAILY RF: 0 olmesartan [Benicar] 20 MG tablet 20 mg PO DAILY RF: 0 cephalexin 250 mg tablet 250 mg PO DAILY RF: 0 multivitamin [Daily Multi-Vitamin] Tablet 1 tab PO DAILY RF: 0 ammonium lactate 12 % cream 1 applic topical DAILY RF: 0 diltiazem HCl [Cartia XT] 120 mg capsule,extended release 24hr 120 mg PO DAILY RF: 0 atorvastatin 80 mg tablet 80 mg PO DAILY RF: 0 furosemide 20 mg tablet 20 mg PO DAILY RF: 0 duloxetine 60 mg capsule,delayed release(DR/EC) 60 mg PO BID RF: 0 Discontinued aspirin [Aspirin Low-Strength] 81 MG tablet,chewable 81 mg PO DAILY RF: 0 Discharge Instructions Additional Instructions: Care after Gallbladder Surgery -Pain control: For the first 72 hours after surgery, take you pain meds continuously and not just when you have pain. Alternate Tylenol 1000mg by mouth every 8 hours, and Ibuprofen 600mg every 6 hours. Make sure you take ibuprofen with food and not on an empty stomach. Use the tramadol for breakthrough pain- pain that is greater than a 7. -Hold aspirin for the next week, and if still taking ibuprofen. - Use ICE! Ice really helps to keep the swelling down, and swelling causes pain. Twenty minutes on, and then off, continuously for the first 72hours. After the first 72hrs, you can just use the Tylenol, ibuprofen or Celebrex, and ice, when you have pain. If you are taking narcotic pain medication, follow the instructions on the label and do not drive. Pain medications can make you very constipated. Make sure you are moving your bowels daily. If not, take Miralax, milk of magnesia or magnesium citrate. - Anesthesia makes you very constipated. Take a dose of milk of magnesia the morning after surgery. ? Use an ice bag for the first 72 hours. This helps to decrease swelling, which causes pain. It is normal to be more sore/painful and swollen towards the end of the day and first thing in the morning. ? Gallbladder surgery can make you very nauseated; use Zofran for nausea, for the first 24 hours. The nausea generally stops after 24 hours. ? Use milk of magnesia or prune juice to prevent constipation (this is a particular side effect of pain medication and anesthesia). Do not allow yourself to become constipated. ? Avoid fatty or greasy foods; introduce these slowly, with care, after about 1 month. High-fat foods include: ? Foods that are fried, like [place] fries and potato chips ? High-fat meats, such as santillan, bologna, sausage, ground beef, and ribs, pork products ? High-fat dairy products, such as cheese, ice cream, cream, whole milk, and sour cream ? Pizza ? Foods made with lard or butter ? Creamy soups or sauces ? Meat gravies ? Chocolate ? Oils, such as palm and coconut oil ? Skin of chicken or turkey Nuts and nut butters [place] ? Start out eating very small, bland amounts of food. Do not take pain pills on an empty stomach. - You will notice purple discoloration around the incisions. This is the ?skin glue?. This will wear off on its own. It is OK to shower after 24hrs. You do not need to cover the incisions. - -You should walk frequently, gradually, increasing the distance. You may climb stairs, just go slowly. ? Do not go swimming or sit in a hot tub for two weeks. ? There are no stitches to remove. ? Do not drive your car x72hrs and then only if you have no pain and can move freely. Do not drive if you are taking pain narcotic pain medications. ? You may resume sexual activity whenever pain and soreness subside, usually in 2 weeks. ? Do no lift anything over 5 lbs. for two weeks. ? You may return to work in one week, or when you feel able, provided you do not have to do any heavy lifting or prolonged standing. ? You should return to Dr. Lopez?s office for a post-op appointment about one week after surgery. Please call the Surgical [facility] at: [phone] to schedule an appointment. My Medications for pain and nausea are: ibuprofen and ultram, and zofran When to Call the Office: ? If the incision becomes red or swollen, or there is more than a little d rainage from it. ? If you develop a temperature higher than 100.5 F. ? If your eyes turn yellow ? Vomiting and can?t keep fluids down Activity:: see above Remove Dressings/Wound Care:: 24 hours Shower/Bathe:: 24 hours Diet:: Carb Counting Discharge Orders Discharge Orders: Discharge Order (Routine); Ordered 07/21/21 Ordered By: Yani Lopez DS: Diagnosis Discharge Diagnosis (1) History of smoking: Status: Acute (2) Neurogenic bladder: Status: Acute (3) Type 2 diabetes mellitus with diabetic neuropathy, unspecified: Status: Acute (4) COPD (chronic obstructive pulmonary disease): Status: Chronic (5) CAD (coronary artery disease): Status: Chronic (6) Chronic kidney disease: Status: Chronic (7) GERD (gastroesophageal reflux disease): Status: Chronic (8) Barretts esophagus: Status: Acute (9) PVD (peripheral vascular disease): Status: Chronic (10) Body mass index exceeds 30: Status: Acute (11) Gout: Status: Chronic (12) Hyperlipidemia: Status: Acute (13) Squamous cell carcinoma of skin: Status: Acute (14) Acute cholecystitis due to biliary calculus: Status: Acute (15) Urinary retention: Status: Acute
[2021-07-21] MEDS: traMADol 50 MG TAB PO (12:08)
--- NOTE | 2021-07-21 12:44 | W.ANESPOSTOP ---
Postoperative Evaluation Date, Time and Location Date Performed: 07/21/21 Time Performed: 12:44 Patient Location: Day Surgery Unit Vital Signs Most Recent Imported Vital Signs: Most Recent Vital Signs Temp Pulse Resp BP Pulse Ox 36.9 C 59 L 16 134/79 96 07/21/21 12:12 07/21/21 12:12 07/21/21 12:12 07/21/21 12:12 07/21/21 12:12 Pain Score Most Recent Pain Score: Most Recent Pain Score Pain Level 3 07/21/21 12:12 Assessment Mental Status: Awake (Alert & Oriented to Patient Baseline) Airway and Respiratory Function: Patent airway with normal (patient baseline) respiratory exam Cardiovascular Function: Hemodynamically Stable Hydration Status: Adequately Hydrated Nausea & Vomiting: No Nausea or Vomiting Pain: Pain is tolerable per patient Peripheral Nerve Block: Patient did not receive a nerve block
== END 2021-07-21 13:00 | disposition home or self-care (01) ==
PROVIDERS: PCP Family Medicine; Visit Provider Surgery
PROC: 0FT44ZZ Resection of Gallbladder, Percutaneous Endoscopic Approach (ICD-10-PCS; CPT 47563; principal; 2021-07-21 09:00)
DX: K80.10 Calculus of gallbladder with chronic cholecystitis without obstruction (principal); E11.9 Type 2 diabetes mellitus without complications; K21.9 Gastro-esophageal reflux disease without esophagitis; E78.5 Hyperlipidemia, unspecified
CPT/HCPCS: 47562; 88304; J1885; J2405; J2543; J2704

== ENCOUNTER → 2021-07-30 12:55 | Outpatient (BNVA) | payer MEDICARE, SELFPAY | PROVIDERS: PCP Family Medicine; Referring Provider Family Medicine; Visit Provider Surgery | DX: Z48.815 Encounter for surgical aftercare following surgery on the digestive system (principal); Z90.49 Acquired absence of other specified parts of digestive tract ==

== ENCOUNTER 2021-11-26 01:51 | Outpatient (CLI) | payer MEDICARE, SELFPAY ==
[2021-11-26 12:56] LABS: COMMENT (LAB VIEW ONLY) 43.34 mg/dL
[2021-11-26 13:08] LABS: Hemoglobin A1C 7.2 % (<5.7)
[2021-11-26 13:18] LABS: ALT 40 U/L (16-63); AST 30 U/L (15-37); Albumin 4.1 g/dL (3.4-5.0); Alkaline Phosphatase 103 U/L (46-116); Anion Gap 13.4 mmol/L (3-11); BUN 36 mg/dL (7-18); Bilirubin, Total 0.4 mg/dL (0.2-1.0); CO2 24.6 mmol/L (21.0-32.0); CREATININE 1.8 mg/dL (0.70-1.30); Calcium 9.1 mg/dL (8.5-10.1); Calculated LDL 58 mg/dL (<100); Chloride 105 mmol/L (98-107); Cholesterol 130 mg/dL (<200); Estimated GFR 37.27 (mL/min/1.73m2); Glucose 69 mg/dL (74-106); HDL Cholesterol 42 mg/dL (40-60); Potassium 5.2 mmol/L (3.5-5.1); Sodium 143 mmol/L (136-145); Total Protein 7.9 g/dL (6.4-8.2); Triglyceride 152 mg/dL (<150)
[2021-11-26 13:35] LABS: Uric Acid 7.6 mg/dL (3.5-7.2)
== END 2021-11-26 01:52 | disposition home or self-care (01) ==
LOC: LOS 01:51
PROVIDERS: PCP Nurse Practitioner Family; Visit Provider Family Medicine
DX: E11.40 Type 2 diabetes mellitus with diabetic neuropathy, unspecified (principal); M10.9 Gout, unspecified; N18.9 Chronic kidney disease, unspecified
CPT/HCPCS: 36415; 80053; 80061; 82043; 82570; 83036; 84550

== ENCOUNTER 2021-12-25 15:00 | Outpatient (CLI) | payer MEDICARE, SELFPAY ==
--- NOTE | 2021-12-25 15:00 | NS.NUTBLAN_ITS ---
Gil and were referred to diabetes self management education. Gil is 71 year old male with hx of Dm 2, CAD, COPD. Most recent A1C (11/26/21): 7.2% indicates well controlled Dm, lipids wnl. Dm meds: 1000 mg metformin, 2 mg glimepiride BID. Diet Recall: breakfast:oatmeal, lunch: sandwich, Dinner home made mostly. Exercise: walks 1-3 miles per day Session today focused on glycemic index, meal plans and snack ideas. Overall, Gil is managing his diabetes well- following heart healthy meal plan and includes exercise daily. Reviewed and adjusted meal plans for optimal glycemic index. Provided meal plans and snack ideas. Enouraged continued emphasis on heart healthy eating with routine exercise. A1C goal < 8.5% in view of age and co morbidities. No follow up planned at this time.
== END 2021-12-25 16:00 ==
LOC: DS 12-31 14:24
PROVIDERS: PCP Nurse Practitioner Family; Visit Provider Dietitian, Registered
DX: E11.9 Type 2 diabetes mellitus without complications (principal); Z79.84 Long term (current) use of oral hypoglycemic drugs; Z71.3 Dietary counseling and surveillance
CPT/HCPCS: 97802

== ENCOUNTER 2022-01-20 16:46 | Outpatient (REF) | payer MEDICARE, SELFPAY ==
[2022-01-22 11:24] LABS: COVID-19 RT-PCR UVMMC Result Negative (Negative)
== END 2022-01-20 16:47 | disposition home or self-care (01) ==
LOC: LBN 16:46
PROVIDERS: PCP Nurse Practitioner Family; Visit Provider Family Medicine
DX: J06.9 Acute upper respiratory infection, unspecified (principal); Z20.822 Contact with and (suspected) exposure to COVID-19
CPT/HCPCS: U0003

== ENCOUNTER → 2022-02-03 13:48 | Outpatient (CLI) | payer MEDICARE, SELFPAY ==
--- NOTE | 2022-02-03 13:30 | DI.RAD_ITS ---
Exam(s) XR CHEST 2V PA LATERAL EXAM: XR CHEST 2V PA LATERAL CLINICAL HISTORY: HEMOPTYSIS, R04.2--COUGH, R05.9--COPD, J44.9 TECHNIQUE: 2D digital imaging was performed. COMPARISON: CR XR CHEST 2V PA LATERAL from 06/22/2021 FINDINGS: MEDIASTINUM: Normal. HEART: Upper limits of normal. Aorta tortuous. PULMONARY VASCULATURE: Normal. LUNGS: Clear. PLEURAL SPACE: No pleural effusion or pneumothorax. BONE:Flowing osteophytes in the thoracic spine. Resection of the distal right clavicle. IMPRESSION: No acute abnormality. DATA REPOSITORY: RADIATION DOSE DELIVERED:
== END ==
PROVIDERS: PCP Nurse Practitioner Family; Visit Provider Family Medicine
DX: J44.9 Chronic obstructive pulmonary disease, unspecified (principal)
CPT/HCPCS: 71046

== ENCOUNTER 2022-02-03 14:09 | Outpatient (REF) | payer MEDICARE, SELFPAY | END 2022-02-03 14:10 | disposition home or self-care (01) | LOC: LBN 14:09 | PROVIDERS: PCP Nurse Practitioner Family; Visit Provider Family Medicine | DX: R05.9 Cough, unspecified (principal); R04.2 Hemoptysis; J44.9 Chronic obstructive pulmonary disease, unspecified | CPT/HCPCS: 87070; 87205 ==

== ENCOUNTER 2022-02-24 13:54 | Outpatient (REF) | payer MEDICARE, SELFPAY ==
[2022-02-25 11:36] LABS: Campylobacter PCR Negative (Negative); Salmonella PCR Negative (Negative); Shiga Toxin PCR Negative (Negative); Shigella/Enteroinvasive Ecoli Negative (Negative)
== END 2022-02-24 13:55 | disposition home or self-care (01) ==
LOC: LBN 13:54
PROVIDERS: PCP Nurse Practitioner Family; Visit Provider Nurse Practitioner Family
DX: R19.7 Diarrhea, unspecified (principal)
CPT/HCPCS: 87505

== ENCOUNTER 2022-02-24 15:06 | Emergency (ER) | payer MEDICARE, SELFPAY ==
[2022-02-24 15:09] VITALS: BP 112/65; PULSE 86; RESP 20; TEMP 37.1; O2SAT 94
[2022-02-24 15:23] VITALS: RESP 18
--- NOTE | 2022-02-24 16:00 | ED.GENADUL_ITS ---
Discharge Plan Disposition Patient Disposition: HOME Condition: Improving Discharge Details Clinical Impression: Diverticulitis, Allergic reaction Primary Care Provider: Vega Scherer ED Provider: Steve Quesada Home Meds and New Rx's Prescriptions: New ciprofloxacin HCl [Cipro] 500 mg tablet 500 mg PO BID Qty: 20 0RF metronidazole 500 mg tablet 500 mg PO QID 10 Days Qty: 40 0RF Continued trazodone 50 mg tablet 50 mg PO QHS PRN (Reason: sleep) Qty: 90 0RF albuterol sulfate 90 mcg/actuation HFA aerosol inhaler 2 puff inhalation Q4H PRN (Reason: shortness of breath or wheezing) Qty: 8.5 11RF cetirizine [Zyrtec] 10 mg tablet 10 mg PO DAILY PRN (Reason: allergy symptoms) Qty: 14 0RF prednisone 20 mg tablet 40 mg PO DAILY Qty: 10 0RF diphenoxylate-atropine [Lomotil] 2.5-0.025 mg tablet 1 tab PO TID PRN (Reason: diarrhea) Qty: 60 0RF metformin 500 MG tablet 1,000 mg PO BID glimepiride 1 MG tablet 2 mg PO BID Label Comments: 11/22/16 PER PT. 2MG BID gabapentin 300 MG capsule 1,200 mg PO TID omeprazole 20 MG capsule,delayed release(DR/EC) 40 mg PO DAILY olmesartan [Benicar] 20 MG tablet 20 mg PO DAILY multivitamin [Daily Multi-Vitamin] Tablet 1 tab PO DAILY ammonium lactate 12 % cream 1 applic topical DAILY diltiazem HCl [Cartia XT] 120 mg capsule,extended release 24hr 120 mg PO DAILY atorvastatin 80 mg tablet 80 mg PO DAILY furosemide 20 mg tablet 20 mg PO DAILY duloxetine 60 mg capsule,delayed release(DR/EC) 60 mg PO BID cetirizine 10 mg Tablet 10 mg PO DAILY prednisone 20 mg Tablet 40 mg PO DAILY diphenoxylate-atropine 2.5-0.025 mg Tablet 1 tab PO TID Discharge Instructions Instructions: Diverticulitis (ED), General Allergic Reaction (ED) Additional Instructions: Cipro and Flagyl as directed. Clear liquid diet, advance as tolerated. Continue taking the steroids prescribed by your primary care doctor, these medications may cause increased glucose levels. Add on [id number] Benadryl and Pepcid for the next 5 days while taking the steroids. Cool compresses to the face every 2 hours for 20 minutes. Please watch for new or worsening symptoms and return to the ER for any concerns. Your tickborne panel is pending and can be followed by your primary care provider. Lastly I do recommend contacting your PCP tomorrow to discuss your ER visit, ongoing symptoms, need for outpatient reevaluation. Discharge Data Discharge Date/Time-TO BE ENTERED AT DEPARTURE: 02/24/22 20:34 Medical Decision Making This is a 71-year-old gentleman presenting to the ER for 2 separate complaints. Given his abdominal pain will obtain IV access, routine screening laboratory matilde ues and a CT of his abdomen pelvis with IV contrast. Stool samples are already pending. I do not see obvious evidence of erythema migrans but will obtain a Lyme panel as well. No obvious known allergic exposure. Patient with what appears to be eyelid edema as well as cheek edema but I do not see any evidence of lip or tongue swelling, angioedema, etc. No airway compromise. No stridor or wheezing. Patient already given IM steroids. Will provide 1 L IV fluid, IV Pepcid and Benadryl. Laboratory values do not reveal any evidence of leukocytosis. Patient does have mild anemia, denies any GI bleeding sodium and potassium unremarkable creatinine 1.6 with a GFR of 42.7 which appears to be near his baseline. Total bili 0.4 LFTs unremarkable. Lipase 75. Upon reevaluation I do not appreciate any rash on his right upper arm. No evidence of airway compromise or worsening facial swelling, in fact the swelling appears to be improved. No evidence of angioedema. CT imaging concerning for colitis-diverticulitis. Patient does report recent colonoscopy reporting diverticulosis, will treat with antibiotics for diverticulitis. We did discuss the importance of outpatient follow-up Standard discharge and return precautions were provided. Patient understands, is agreeable to this plan, and has no additional questions or concerns upon discharge. This documentation was generated using [employer] system, please disregard any oddities of phrase or misspellings. Medical Records Medical records reviewed: Yes I reviewed the patient's medical records. Imaging Data Radiologic Study: Attestation: I personally reviewed and interpreted this imaging study as follows: Imaging: CT Scan Radiologist's impression: PROCEDURE INFORMATION: Exam: CT Abdomen And Pelvis With Contrast Exam date and time: 02/24/2022 6:43 PM Age: 71 years old Clinical indication: Abdominal pain; Localized; Left lower quadrant (llq); Prior surgery; Surgery date: 6+ months; Surgery type: Cholecystectomy, appy; Additional info: Llq pain TECHNIQUE: Imaging protocol: Computed tomography of the abdomen and pelvis with contrast. Radiation optimization: All CT scans at this facility use at least one of these dose optimization techniques: automated exposure control; mA and/or kV adjust ment per patient size (includes targeted exams where dose is matched to clinical indication); or iterative reconstruction. Contrast material: OMNI 350; Contrast volume: 100 ml; Contrast route: INTRAVENOUS (IV); COMPARISON: CT ABDOMEN PELVIS W 06/22/2021 12:42 PM FINDINGS: Lungs: Mild bibasilar hypoventilatory change and scarring. Mild bilateral lower lobe bronchiectasis. Liver: The liver is unremar kable. Gallbladder and bile ducts: Post cholecystectomy. No abnormal biliary ductal dilation. Pancreas: The pancreas is unremarkable. Spleen: . Normal variant splenule. Adrenal glands: The adrenal glands are unremarkable. Kidneys and ureters: No hydronephrosis or nephrolithiasis. Nonspecific bilateral perinephric stranding. Stomach and bowel: A duodenal diverticulum is noted. No evidence of bowel obstruction. No pericolonic inflammatory stranding. Sigmoid colon is mildly thick-walled with mild inflammatory stranding, increased since prior, with very mild diverticular disease. No evidence of pneumatosis, portal venous gas or pneumoperitoneum. No interloop fluid or intra-abdominal free fluid.Appendix: Appendix is not seen; there is a pericecal surgical clip which suggests prior appendectomy. Additionally, no pericecal inflammatory change to suggest appendicitis. Intraperitoneal space: See Stomach and bowel finding. Vasculature: Normal caliber abdominal aorta and proximal common iliac arteries with calcified atherosclerosis. Lymph nodes: Unremarkable. No enlarged lymph nodes. Urinary bladder: The bladder may be thick-walled relative to degree of distention, without perivesical inflammatory changes; this may represent incomplete distension, chronic outflow obstruction, or cystitis. Reproductive: Mildly enlarged prostate Bones/joints: Bilateral SI joint fusion hardware. Degenerative, posttraumatic and postsurgical change of the pelvis and spine with SI joint fusion hardware in situ. Osteopenia. Unchanged appearance of L2 and 3 compression deformities, with partial vertebral body fusion and retropulsed component. Soft tissues: There is a fat containing right inguinal hernia. IMPRESSION: 1. Sigmoid colon is mildly thick-walled with mild inflammatory stranding, and very mild diverticular disease, may represent mild uncomplicated sigmoid diverticulitis. Differential includes colitis, including infectious/inflammatory or ischemic etiologies. No perforation, abscess or obstr uction. No findings suggestive of bowel ischemia or infarction. If warranted clinically, consider follow-up examination following a course of treatment to exclude concomitant malignancy. 2. Possible urinary bladder wall-thickening, may represent incomplete distention versus outflow obstruction or cystitis. Correlate with urinalysis. 3. Unchanged degenerative, posttraumatic and postsurgical spine and pelvic osseous changes. The findings were verbally communicated via telephone conference at 7:31 PM EDT on 02/24/2022 with Steve Quesada. The findings were acknowledged and understood. Lab Data Lab results reviewed: Yes I reviewed the patient's lab results. Labs: Laboratory Tests Range/Units 02/24/22 02/24/22 02/24/22 16:00 16:00 16:38 WBC (4.4-10.8) 10^3/uL 7.92 RBC (4.36-5.78) 10^6/uL 4.38 Hgb (13.5-17.5) g/dL 10.1 L Hct (40.0-50.0) % 33.4 L MCV (80-95) fL 76 L MCH (27.0-33.0) pg 23.1 L MCHC (32.0-36.0) % 30.2 L RDW (11.8-14.1) % 18.0 H Plt Count (130-400) 10^3/uL 420 H MPV (8.0-11.0) fL 9.1 Immature Gran % 0.4 Neutrophils % 69.2 Lymphocytes % 16.3 Monocytes % 10.4 Eosinophils % 3.3 Basophils % 0.4 Nucleated RBC % (0.0-0.3) % 0.0 Absolute Neutrophils (1.2-6.7) 10^3/uL 5.49 Absolute Lymphocytes (1.2-3.4) 10^3/uL 1.29 Absolute Monocytes (0.1-0.8) 10^3/uL 0.82 H Absolute Eosinophils (0.0-0.7) 10^3/uL 0.26 Absolute Basophils (0.0-0.2) 10^3/uL 0.03 Sodium (136-145) mmol/L 141 Potassium (3.5-5.1) mmol/L 4.0 Chloride (98-107) mmol/L 108 H Carbon Dioxide (21.0-32.0) mmol/L 23.2 Anion Gap (3-11) mmol/L 9.8 BUN (7-18) mg/dL 26 H Creatinine (0.70-1.30) mg/dL 1.6 H Estimated GFR/1.73 m2 (mL/min/1.73m2) 42.70 Glucose (74-106) mg/dL 73 L Calcium (8.5-10.1) mg/dL 8.6 Total Bilirubin (0.2-1.0) mg/dL 0.4 AST (15-37) U/L 30 ALT (16-63) U/L 32 Alkaline Phosphatase (46-116) U/L 73 Total Protein (6.4-8.2) g/dL 7.3 Albumin (3.4-5.0) g/dL 3.3 L Lipase (73-393) U/L 75 Urine Color (Yellow) Yellow Urine Clarity (Clear) Clear Urine pH (5-8) 5.5 Ur Specific [place] (1.005-1.025) 1.020 Urine Protein (Negative) mg/dL Negative Urine Ketones (Negative) mg/dL Negative Urine Blood (Negative) Negative Urine Nitrite (Negative) Negative Urine Bilirubin (Negative) Negative Urine Urobilinogen (Up TO 0.2) EU/dL 0.2 Ur Leukocyte Esterase (Negative) Negative Urine Glucose (Negative) mg/dL Negative HPI General Mode of arrival: ambulatory . Date/Time Provider Initiated Documentation: 02/24/22 15:37 . Limitations to Documentation: no limitations . Information obtained by: patient . HPI Narrative: This is a 71-year-old gentleman presenting to the ER for multiple complaints, left lower quadrant pain, allergic reaction. He has a past medical history that includes diverticulosis, diabetes, COPD, CAD, chronic low back pain, chronic kidney disease, GERD, PVD. He reports 10-day history of diarrhea and left lower quadrant pain, seen by his PCP and was given a prescription for Lomotil as well as a stool sample kit which she has already dropped off to the lab. Patient states this morning he noticed a rash to his right arm as well as some swelling to his face, when he saw his PCP he was given IM steroid injection and a prescription for steroids as well. Subsequently he felt as though the rash and swelling is getting worse and was seen at the urgent care. Concern for potential Lyme disease but sent to the ER rather than initiating doxycycline therapy or Lyme testing Related Data Home Medications Medication Instructions Recorded Confirmed gabapentin 300 mg capsule 1,200 mg PO TID 04/18/14 02/24/22 glimepiride 1 mg tablet 2 mg PO BID 04/18/14 02/24/22 metformin 500 mg tablet 1,000 mg PO BID 04/18/14 02/24/22 olmesartan 20 mg tablet (Benicar) 20 mg PO DAILY 04/18/14 02/24/22 omeprazole 20 mg capsule,delayed 40 mg PO DAILY 04/18/14 02/24/22 release atorvastatin 80 mg tablet 80 mg PO DAILY 06/24/21 02/24/22 diltiazem HCl 120 mg 120 mg PO DAILY 06/24/21 02/24/22 capsule,extended release 24 hr (Cartia XT) duloxetine 60 mg capsule,delayed 60 mg PO BID 06/24/21 02/24/22 release furosemide 20 mg tablet 20 mg PO DAILY 06/24/21 02/24/22 ammonium lactate 12 % topical cream 1 applic topical DAILY 06/29/21 02/24/22 multivitamin (Daily Multi-Vitamin 1 tab PO DAILY 06/29/21 02/24/22 tablet) trazodone 50 mg tablet 50 mg PO QHS PRN sleep #90 tabs 12/10/21 02/24/22 albuterol sulfate 90 mcg/actuation 2 puff inhalation Q4H PRN 01/20/22 02/24/22 aerosol inhaler shortness of breath or wheezing #8.5 grams cetirizine 10 mg tablet 10 mg PO DAILY 02/24/22 02/24/22 cetirizine 10 mg tablet (Zyrtec) 10 mg PO DAILY PRN allergy 02/24/22 02/24/22 symptoms #14 tabs ciprofloxacin HCl 500 mg tablet 500 mg PO BID #20 tabs 02/24/22 (Cipro) diphenoxylate-atropine 2.5 1 tab PO TID 02/24/22 02/24/22 mg-0.025 mg tablet diphenoxylate-atropine 2.5 1 tab PO TID PRN diarrhea #60 tabs 02/24/22 02/24/22 mg-0.025 mg tablet (Lomotil) metronidazole 500 mg tablet 500 mg PO QID 10 days #40 tabs 02/24/22 prednisone 20 mg tablet 40 mg PO DAILY 02/24/22 02/24/22 prednisone 20 mg tablet 40 mg PO DAILY #10 tabs 02/24/22 02/24/22 Previous Rx's Medication Instructions Recorded trazodone 50 mg tablet 50 mg PO QHS PRN sleep #90 tabs 12/10/21 albuterol sulfate 90 mcg/actuation 2 puff inhalation Q4H PRN 01/20/22 aerosol inhaler shortness of breath or wheezing #8.5 grams cetirizine 10 mg tablet (Zyrtec) 10 mg PO DAILY PRN allergy 02/24/22 symptoms #14 tabs ciprofloxacin HCl 500 mg tablet 500 mg PO BID #20 tabs 02/24/22 (Cipro) diphenoxylate-atropine 2.5 1 tab PO TID PRN diarrhea #60 tabs 02/24/22 mg-0.025 mg tablet (Lomotil) metronidazole 500 mg tablet 500 mg PO QID 10 days #40 tabs 02/24/22 prednisone 20 mg tablet 40 mg PO DAILY #10 tabs 02/24/22 Allergies Allergy/AdvReac Type Severity Reaction Status Date / Time No Known Allergies Allergy Verified 02/24/22 15:14 General Stated Complaint: GenMedical MAXIMILIANO: 3 Review of Systems Constitutional Constitutional: Denies fever(s), Denies headache(s) and Denies weakness Eyes Eyes: Denies itchy eyes and Reports other (Swelling) ENT Ears, Nose, Mouth, and Throat: Denies headache(s), Denies neck pain, Denies throat swelling and Denies tongue swelling Cardiovascular Cardiovascular: Denies chest pain and Denies dyspnea Respiratory Respiratory: Denies cough, Denies dyspnea, Denies stridor and Denies wheezing Gastrointestinal Gastrointestinal: Reports abdominal pain, Denies melena, Denies hematochezia, Denies constipation, Reports diarrhea, Denies nausea and Denies vomiting Genitourinary Genitourinary: Denies dysuria Musculoskeletal Musculoskeletal: Reports back pain (Chronic) and Denies neck pain Integumentary/Breasts Skin/Breast: Reports rash Neurologic Neurologic: Denies headache(s) and Denies weakness Allergic/Immunologic Allergic/Immunologic: Reports urticaria, Denies itchy eyes, Denies throat swelling, Denies tongue swelling and Denies wheezing PFSH All Active Problems Diverticulitis (Chronic) Allergic reaction (Acute) Diarrhea (Acute) Anemia (Chronic) Chronic mild anemia presumed in part secondary to chronic kidney disease History of smoking (Acute) Quit 23 years ago. Neurogenic bladder (Acute ~12/27/18) Type 2 diabetes mellitus with diabetic neuropathy, unspecified (Acute) COPD (chronic obstructive pulmonary disease) (Chronic) CAD (coronary artery disease) (Chronic) Actinic keratoses (Acute) Chronic low back pain (Acute) Chronic kidney disease (Chronic) 11/2021, stage 3 , Cr, 1.8 Bilateral carpal tunnel syndrome (Acute) Brachial neuritis (Acute) Cervical spondylosis with radiculopathy (Acute) Rosacea (Acute) GERD (gastroesophageal reflux disease) (Chronic) Barretts esophagus (Acute) PVD (peripheral vascular disease) (Chronic ~12/09/20) Body mass index exceeds 30 (Acute) Gout (Chronic) Hyperlipidemia (Acute) Squamous cell carcinoma of skin (Acute) left hand Acute cholecystitis due to biliary calculus (Acute) 06/2021- tx at [facility] Urinary retention (Acute 08/30/17) Medical History BPH w urinary obs/LUTS (01/30/16) Diabetes 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) HTN (hypertension) UTI (urinary tract infection) Surgical History History of appendectomy (~07/18/1958) History of back surgery History of cholecystectomy (~07/21/21) History of endoscopy (~05/24/17) w/ biopsy- 03/21/18, 09/19/18, 03/27/19, 04/22/20 History of esophagogastroduodenoscopy (EGD) (~04/22/20) History of foot surgery (~07/18/08) right foot History of hip surgery History of incision and drainage (~07/18/90) perianal abscess- w/ internal sphincterotomy History of shoulder surgery (~07/18/74) History of surgical removal of pilonidal cyst Family History Mother Alcohol use disorder Father , 76 Cancer Sister Alcohol use disorder Social History Smoking/Tobacco Use Status: Former Tobacco Use tobacco type: cigarettes Quit Date: 07/18/00 Tobacco: How many years used: 35 Second Hand Exposure: Yes Smoking risk assessment performed?: Yes Alcohol Intake: former Drug use: Never Substance use type: does not use Caregiver/Support person: Yes Household members: significant other Housing: house Communication Needs: None Do you need help understanding health information?: Rarely Pets and animals: No Sexually active: No Do you think of yourself as: straight/heterosexual Current gender identity: male What is your relationship status?: living with partner How often do you talk on the phone with friends or family?: three or more times per week How often do you get together with friends or relatives?: twice per week How often do you attend faith or zoroastrianism services?: decline to answer Do you belong to any clubs or organized social groups?: yes Panel score (0-1 are the most socially isolated patients): 3 What type of physical activity do you participate in: walking Duration: 60-90 minutes/day Frequency: 5-6 times per week Keshia/Spiritism: Latter-Day Special keshia needs: No Seatbelt use: always Drive intox or ride w/intox truck driver's offsider: No Do you feel safe at home: Yes Do you feel safe in your relationship?: Yes Exam Const General: cooperative, healthy appearing, comfortable and no acute distress Orientation: alert, awake and oriented x3 HENMT Head: normal to inspection, normocephalic and atraumatic General nose exam: external nose normal Face images: 1. Mild swelling 2. Mild swelling 3. Mild swelling 4. Mild swelling Mouth: oral mucosae normal, lip normal, tongue normal and moist mucous membranes Throat: posterior oropharynx normal Eyes Alignment and Position: alignment normal Periorbital: periorbital findings normal Eyelids: eyelid abnormality right upper eyelid swelling and left upper eyelid swelling Conjunctivae: conjunctivae normal Sclera: sclerae normal Cornea: corneas normal Pupils: PERRL EOM: EOM intact bilaterally Direct ophthalmoscopy: normal light reflex Neck Neck: normal visual inspection, full ROM, no meningeal signs, trachea midline and supple Resp Effort & Inspection: normal respiratory effort and able to speak in complete sentences Auscultation: clear to auscultation bilaterally Cardio Rate: regular rate Rhythm: regular rhythm GI Inspection: normal to inspection Palpation: soft, not firm, no guarding, no pulsatile masses and tender in the LLQ; not at McBurney's point, Rascon's sign negative and with no rebound tenderness Back/Spine/Pelvis Back: No back tenderness Skin Full body images: 1. There are multiple quarter size slightly papular erythematous blanchable hive-like lesions. Nontender. Not consistent with erythema migrans. No warmth or tenderness. Skin is intact. No lymphangitic streaking Neuro General: patient alert, patient awake, moves all extremities and no focal motor deficits Cognition: normal cognition Speech: speech normal Gait: normal gait Sensory Exam: no sensory deficits noted Extrem General: normal to inspection, full ROM and capillary refill normal Psych Appearance: grossly normal Mental Status: mental status grossly normal Course Vital Signs Vital signs: Vital Signs Temperature 37.1 C 02/24/22 15:09 Pulse 86 02/24/22 15:09 Respiratory Rate 20 02/24/22 15:09 Blood Pressure 112/65 02/24/22 15:09 Pulse Oximetry 94 02/24/22 15:09 Temperature 37.1 C 02/24/22 15:09 Temperature Source Temporal Artery Scan 02/24/22 15:09 Pulse 86 02/24/22 15:09 Respiratory Rate 18 02/24/22 15:23 Respiratory Effort 02/24/22 15:23 Respiratory Depth Normal 02/24/22 15:23 Respiratory Pattern Normal 02/24/22 15:23 Blood Pressure 112/65 02/24/22 15:09 Blood Pressure Position Sitting 02/24/22 15:09 Pulse Oximetry 94 02/24/22 15:09 Oxygen Delivery Method Room Air 02/24/22 15:09 Oxygen Flow Rate 0 02/24/22 15:09 Pain Level 2 02/24/22 15:09
[2022-02-24 16:12] LABS: Abs Immature Grans 0.03 10^3/uL (0.0-0.06); Absolute Basophil Count 0.03 10^3/uL (0.0-0.2); Absolute Eosinophil Count 0.26 10^3/uL (0.0-0.7); Absolute Lymphocyte Count 1.29 10^3/uL (1.2-3.4); Absolute Monocyte Count 0.82 10^3/uL (0.1-0.8); Absolute Neutrophil Count 5.49 10^3/uL (1.2-6.7); Basophils % 0.4; Eosinophils % 3.3; HCT 33.4 % (40.0-50.0); HGB 10.1 g/dL (13.5-17.5); Immature Grans % 0.4; Lymphocytes % 16.3; MCH 23.1 pg (27.0-33.0); MCHC 30.2 % (32.0-36.0); MCV 76 fL (80-95); MPV 9.1 fL (8.0-11.0); Monocytes % 10.4; Neutrophils % 69.2; Platelet Count 420 10^3/uL (130-400); RBC 4.38 10^6/uL (4.36-5.78); RDW-SD 49.3 fL; WBC 7.92 10^3/uL (4.4-10.8)
[2022-02-24] MEDS: Normal Saline 1,000 ML 1000 ML IV (16:14)
[2022-02-24] MEDS: diphenhydrAMINE 50 MG/ML VIAL IVP (16:22)
[2022-02-24] MEDS: FAMOTIDINE 20 MG in Normal Saline 100 ML 400 MG IVPB (16:26)
[2022-02-24 16:27] LABS: ALT 32 U/L (16-63); AST 30 U/L (15-37); Albumin 3.3 g/dL (3.4-5.0); Alkaline Phosphatase 73 U/L (46-116); Anion Gap 9.8 mmol/L (3-11); BUN 26 mg/dL (7-18); Bilirubin, Total 0.4 mg/dL (0.2-1.0); CO2 23.2 mmol/L (21.0-32.0); CREATININE 1.6 mg/dL (0.70-1.30); Calcium 8.6 mg/dL (8.5-10.1); Chloride 108 mmol/L (98-107); Glucose 73 mg/dL (74-106); Lipase 75 U/L (73-393); Sodium 141 mmol/L (136-145); Total Protein 7.3 g/dL (6.4-8.2)
--- NOTE | 2022-02-24 16:45 | DI.CT_ITS ---
Exam(s) CT ABDOMEN PELVIS W EXAM: CT ABDOMEN PELVIS W CLINICAL HISTORY: LLQ pain. TECHNIQUE: Imaging Protocol: Axial computed tomography images with coronal and sagittal reformatted images were created and reviewed CONTRAST MATERIAL: Intravenous: Omnipaque 100cc Oral: None COMPARISON: CT CT ABDOMEN PELVIS W from 06/22/2021 FINDINGS: VISUALIZED LUNG BASES: Mild increased markings both lung bases. No pleural effusions.. ABDOMEN: There is no ascites. LIVER: There are no focal hepatic lesions evident. No dilatation of intrahepatic ducts. GALLBLADDER/BILIARY: Gallbladder surgically absent. CBD is not dilated. PANCREAS: No evidence of pancreatic mass nor dilatation of the pancreatic duct. SPLEEN: Spleen is not enlarged. No obvious intrasplenic lesions. Splenic and portal veins are paten t. ADRENALS: There are no significant adrenal masses. KIDNEYS:No cysts evident. No solid renal masses. No calculi nor hydronephrosis.. ABDOMINAL AORTA: Calcified but not enlarged. There is mild fusiform dilatation of the heavily calcif ied left common iliac artery with maximum diameter of 1.8 cm distally in this vessel. LYMPH NODES:There is no retroperitoneal nor paraaortic adenopathy. ABDOMINAL WALL: No evidence of significant anterior abdominal wall nor inguinal hernia. GI: There is no evidence of bowel obstruction, free air, nor abscess. PELVIS: GI: No evidence of appendicitis.Sigmoid is redundant and there appears to be relatively uniform thick ening of the wall of the sigmoid as well as the rectosigmoid. Probably colitis-type pattern. No pro minent diverticulosis. Doubtful for diverticulitis. LYMPH NODES: There is no intrapelvic nor inguinal adenopathy. REPRODUCTIVE: Enlarged lobulated prostate gland which encroaches upon the urinary bladder base. Pros gutiérrez measures 7 cm craniocaudal by 5 cm AP by 6 cm wide. Seminal vesicles unremarkable. URINARY BLADDER: Some distention related to the enlarged prostate. No calculi. OSSEOUS: Hardware across is SI joints noted bilaterally, probably related to prior trauma. No signif icant osseous lesions. No ankylosis of the SI joints. No acute fractures. IMPRESSION: 1. The main finding is circumferential thickening of the sigmoid and rectosigmoid in a colitis-type p attern. Both infectious/inflammatory and ischemic etiologies are to be considered. There is no evid ence perforation or abscess. There is no bowel obstruction. No free fluid. No free air. 2. Grossly enlarged and lobulated prostate gland with some distention of the urinary bladder and mild urinary bladder wall thickening. No bladder diverticuli evident. 3. Gallbladder surgically absent. The biliary tree is not dilated. 4. Heavily calcified abdominal aorta and iliac arteries. 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 Other findings as above. RADIATION DOSE DELIVERED: 986.24mGy.cm Total DLP DATA REPOSITORY: All CT scans at this facility are submitted to the National Radiology Data Registry (NRDR) Dose Index Registry (DIR) with the [employer] (ACR). RADIATION OPTIMIZATION: All CT scans at this facility use at least one of these dose optimization te chniques: automated exposure control; mA and/or kV adjustment per patient size (includes targeted exa ms where dose is matched to clinical indication); or iterative reconstruction.
[2022-02-24 16:53] LABS: Bilirubin Negative (Negative); Blood Negative (Negative); Clarity Clear (Clear); Glucose Negative (Negative); Ketones Negative (Negative); Leukocyte Esterase Negative (Negative); Nitrite Negative (Negative); Urobilinogen 0.2 EU/dL (Up TO 0.2); pH 5.5 (5-8)
[2022-02-24 17:05] VITALS: BP 125/50; PULSE 81; RESP 22; O2SAT 93
[2022-02-24] MEDS: Omnipaque 350 MG/ML 100 ML BTL IJ (18:50)
--- NOTE | 2022-02-24 19:33 | DI.VRAD_ITS ---
PROCEDURE INFORMATION: Exam: CT Abdomen And Pelvis With Contrast Exam date and time: 02/24/2022 6:43 PM Age: 71 years old Clinical indication: Abdominal pain; Localized; Left lower quadrant (llq); Prior surgery; Surgery date: 6+ months; Surgery type: Cholecystectomy, appy; Additional info: Llq pain TECHNIQUE: Imaging protocol: Computed tomography of the abdomen and pelvis with contrast. Radiation optimization: All CT scans at this facility use at least one of these dose optimization techniques: automated exposure control; mA and/or kV adjustment per patient size (includes targeted exams where dose is matched to clinical indication); or iterative reconstruction. Contrast material: OMNI 350; Contrast volume: 100 ml; Contrast route: INTRAVENOUS (IV); COMPARISON: CT ABDOMEN PELVIS W 06/22/2021 12:42 PM FINDINGS: Lungs: Mild bibasilar hypoventilatory change and scarring. Mild bilateral lower lobe bronchiectasis. Liver: The liver is unremarkable. Gallbladder and bile ducts: Post cholecystectomy. No abnormal biliary ductal dilation. Pancreas: The pancreas is unremarkable. Spleen: . Normal variant splenule. Adrenal glands: The adrenal glands are unremarkable. Kidneys and ureters: No hydronephrosis or nephrolithiasis. Nonspecific bilateral perinephric stranding. Stomach and bowel: A duodenal diverticulum is noted. No evidence of bowel obstruction. No pericolonic inflammatory stranding. Sigmoid colon is mildly thick-walled with mild inflammatory stranding, increased since prior, with very mild diverticular disease. No evidence of pneumatosis, portal venous gas or pneumoperitoneum. No interloop fluid or intra-abdominal free fluid. Appendix: Appendix is not seen; there is a pericecal surgical clip which suggests prior appendectomy. Additionally, no pericecal inflammatory change to suggest appendicitis. Intraperitoneal space: See Stomach and bowel finding. Vasculature: Normal caliber abdominal aorta and proximal common iliac arteries with calcified atherosclerosis. Lymph nodes: Unremarkable. No enlarged lymph nodes. Urinary bladder: The bladder may be thick-walled relative to degree of distention, without perivesical inflammatory changes; this may represent incomplete distension, chronic outflow obstruction, or cystitis. Reproductive: Mildly enlarged prostate Bones/joints: Bilateral SI joint fusion hardware. Degenerative, posttraumatic and postsurgical change of the pelvis and spine with SI joint fusion hardware in situ. Osteopenia. Unchanged appearance of L2 and 3 compression deformities, with partial vertebral body fusion and retropulsed component. Soft tissues: There is a fat containing right inguinal hernia. IMPRESSION: 1. Sigmoid colon is mildly thick-walled with mild inflammatory stranding, and very mild diverticular disease, may represent mild uncomplicated sigmoid diverticulitis. Differential includes colitis, including infectious/inflammatory or ischemic etiologies. No perforation, abscess or obstruction. No findings suggestive of bowel ischemia or infarction. If warranted clinically, consider follow-up examination following a course of treatment to exclude concomitant malignancy. 2. Possible urinary bladder wall-thickening, may represent incomplete distention versus outflow obstruction or cystitis. Correlate with urinalysis. 3. Unchanged degenerative, posttraumatic and postsurgical spine and pelvic osseous changes. The findings were verbally communicated via telephone conference at 7:31 PM EDT on 02/24/2022 with Steve Quesada. The findings were acknowledged and understood. Dictated and Authenticated by: Arlen Castillo MD. Ordering:MELANIE Wilson MD
[2022-02-24] MEDS: metroNIDAZOLE 500 MG TAB PO (20:23)
[2022-02-24] MEDS: Ciprofloxacin 500 MG TAB PO (20:23)
[2022-03-01 18:34] LABS: Anaplasma phagocytophilum Negative (Negative); B. miyamotoi PCR Negative (Negative); Babesia divergens/MO-1 Negative (Negative); Babesia duncani Negative (Negative); Babesia microti Negative (Negative); Ehrlichia chaffeensis Negative (Negative); Ehrlichia ewingii/canis Negative (Negative); Ehrlichia muris eauclairensis Negative (Negative)
== END 2022-02-24 20:34 | disposition home or self-care (01) ==
PROVIDERS: Emergency Provider Physician Assistant; PCP Nurse Practitioner Family
DX: K57.92 Diverticulitis of intestine, part unspecified, without perforation or abscess without bleeding (principal); T78.40XA Allergy, unspecified, initial encounter; D64.9 Anemia, unspecified; H02.841 Edema of right upper eyelid; H02.844 Edema of left upper eyelid; I12.9 Hypertensive chronic kidney disease with stage 1 through stage 4 chronic kidney disease, or unspecified chronic kidney disease; E11.22 Type 2 diabetes mellitus with diabetic chronic kidney disease; N18.9 Chronic kidney disease, unspecified; J44.9 Chronic obstructive pulmonary disease, unspecified; I25.10 Atherosclerotic heart disease of native coronary artery without angina pectoris; Z79.84 Long term (current) use of oral hypoglycemic drugs; Z87.891 Personal history of nicotine dependence; X58.XXXA Exposure to other specified factors, initial encounter
CPT/HCPCS: 80053; 83690; 87798; 96361; 96365; 96375; 99285; 74177; 81003; 85025; 86618; 99284; J1200; J3490

== ENCOUNTER 2022-03-06 13:40 | Emergency (ER) | payer MEDICARE, SELFPAY ==
[2022-03-06 13:47] VITALS: BP 110/63; PULSE 76; RESP 18; TEMP 36.8; O2SAT 96
--- NOTE | 2022-03-06 13:53 | ED.GENADUL_ITS ---
Discharge Plan Disposition Patient Disposition: HOME Condition: Stable Discharge Details Clinical Impression: Chronic diarrhea Primary Care Provider: Vega Scherer ED Provider: Jemma Lopez Home Meds and New Rx's Prescriptions: New cholestyramine (with sugar) 4 gram powder 1 pwd PO BID Qty: 348.6 0RF Rx Instructions: administer w/meal; avoid other meds within 1hr before or 4-6hr after dose Continued trazodone 50 mg tablet 50 mg PO QHS PRN (Reason: sleep) Qty: 90 0RF albuterol sulfate 90 mcg/actuation HFA aerosol inhaler 2 puff inhalation Q4H PRN (Reason: shortness of breath or wheezing) Qty: 8.5 11RF cetirizine [Zyrtec] 10 mg tablet 10 mg PO DAILY PRN (Reason: allergy symptoms) Qty: 14 0RF prednisone 20 mg tablet 40 mg PO DAILY Qty: 10 0RF diphenoxylate-atropine [Lomotil] 2.5-0.025 mg tablet 1 tab PO TID PRN (Reason: diarrhea) Qty: 60 0RF metformin 500 MG tablet 1,000 mg PO BID glimepiride 1 MG tablet 2 mg PO BID Label Comments: 11/22/16 PER PT. 2MG BID gabapentin 300 MG capsule 1,200 mg PO TID omeprazole 20 MG capsule,delayed release(DR/EC) 40 mg PO DAILY olmesartan [Benicar] 20 MG tablet 20 mg PO DAILY multivitamin [Daily Multi-Vitamin] Tablet 1 tab PO DAILY ammonium lactate 12 % cream 1 applic topical DAILY diltiazem HCl [Cartia XT] 120 mg capsule,extended release 24hr 120 mg PO DAILY atorvastatin 80 mg tablet 80 mg PO DAILY furosemide 20 mg tablet 20 mg PO DAILY duloxetine 60 mg capsule,delayed release(DR/EC) 60 mg PO BID cetirizine 10 mg Tablet 10 mg PO DAILY prednisone 20 mg Tablet 40 mg PO DAILY diphenoxylate-atropine 2.5-0.025 mg Tablet 1 tab PO TID ciprofloxacin HCl [Cipro] 500 mg tablet 500 mg PO BID Qty: 20 0RF Discharge Instructions Instructions: Chronic Diarrhea (ED) Additional Instructions: It is suspected that your chronic diarrhea may be related or worsened secondary to your recent antibiotics. Your lab work and imaging is reassuring today but your stool culture is still pending and you will be notified if it is positive for a bacterial diarrheal illness. A prescription for cholestyramine for your diarrhea has been sent electronically to your pharmacy. Start taking an [id number] probiotic as directed. You have been placed general surgery's follow-up list for reevaluation within the next 1 to 2 weeks. Return immediately to the emergency department if you develop any worsening or new concerning symptoms. Referrals: Yani Lopez DO [OSTEOPATHIC DOCTOR] - Discharge Data Discharge Date/Time-TO BE ENTERED AT DEPARTURE: 03/06/22 18:24 Discharge Physician: Jemma Lopez Medical Decision Making 71-year-old male with a history of diabetes, coronary artery disease, chronic kidney disease, GERD, COPD, Almaraz's esophagus who has been on multiple antibio tics recently for COPD and diverticulitis with report of finishing Cipro and Flagyl today for recent bout of diverticulitis earlier this month presents for persistent diarrhea for the past 4 weeks. Vitals within normal limits. Patient appears comfortable and nontoxic. His abdomen is soft and minimally tender in the left lower quadrant. Differential diagnosis includes expected course with antibiotics, persistent or recurrent diverticulitis, colitis, UTI, Cdiff, other bacterial illness, medication induced diarrhea, ova and parasites. Considering his age and history, will obtain screening labs, CT abdomen pelvis and give bolus IV fluids. Labs and imaging reviewed. White blood cell count 12.98. Hemoglobin 10 which is his baseline. Urinalysis negative. C. difficile negative. CT notes findings consistent with likely enteritis. Case discussed with Dr. Lopez -as patient C. difficile is negative and he has no significant pain or other concerning findings on imaging, would rather hold on additional antibiotics at this time. The hope would be that since patient finished his antibiotics today, his diarrhea will continue to improve. Recommended Lomotil which patient reports he was likely recently taking and had not had relief. Recommends cholestyramine and probiotic. Recommends follow-up in the office as an outpatient for reevaluation. Patient feels comfortable going home. Discussed that his stool culture is still pending. Patient placed on surgery follow-up list for reevaluation. Usual and customary return precautions given prior to discharge. Medical Records Medical records reviewed: Yes I reviewed the patient's medical records. Imaging Data Radiologic Study: Radiologist's impression: CT Abdomen And Pelvis With Contrast Exam date and time: 03/06/2022 4:25 PM Age: 71 years old Clinical indication: Other: Llq pain, chronic diarrhea, recent diverticulitis; Prior surgery; Surgery date: 6+ months; Surgery type: Cholecysectomy, appendectomy, sphincerotomy , back surgery TECHNIQUE: Imaging protocol: Computed tomography of the abdomen and pelvis with contrast. Contrast material: OMNIPAQUE 350; Contrast volume: 100 ml; Contrast route: INTRAVENOUS (IV);? COMPARISON: CT ABDOMEN PELVIS W 02/24/2022 6:43 PM FINDINGS: Lungs: Minimal bibasilar atelectasis and scarring, with mild right lower lobe bronchiolectasis. Heart: Atherosclerotic calcification of the visualized left anterior descending and right coronary arteries. Liver: Normal.? Gallbladder and bile ducts: Gallbladder surgically absent. Pancreas: Normal.? Spleen: Normal.? Adrenal glands: Normal. No mass. Kidneys and ureters: Simple right renal cyst, for which no further evaluation is necessary. Stomach and bowel: 16 mm duodenal diverticulum. Nondilated, gas and fluid-filled small and large bowel, likely enteritis/diarrhea. Minimal colonic diverticulosis. Appendix: Appendix is surgically absent. Intraperitoneal space: Unremarkable. No free air. No significant fluid collection. Vasculature: Atherosclerotic disease of the abdominal aorta and iliac arteries. Phleboliths within the pelvis. Lymph nodes: Unremarkable. No enlarged lymph nodes. Urinary bladder: Unremarkable as visualized. Reproductive: Prostate gland is enlarged, measuring 5.3 cm in AP diameter by 6.1 cm in transverse dimension. Bones/joints: Degenerative changes of the hips and sacroiliac joints. Multilevel thoracolumbar spine degenerative disc space narrowing and osteophyte formation. Bilateral sacroiliac joint fusion. Soft tissues: Normal. IMPRESSION: Nondilated, gas and fluid-filled small and large bowel, likely enteritis/diarrhea. Lab Data Lab results reviewed: Yes I reviewed the patient's lab results. Labs: Laboratory Tests Range/Units 03/06/22 03/06/22 03/06/22 14:12 14:12 14:24 WBC (4.4-10.8) 10^3/uL 12.98 H RBC (4.36-5.78) 10^6/uL 4.33 L Hgb (13.5-17.5) g/dL 10.0 L Hct (40.0-50.0) % 32.3 L MCV (80-95) fL 75 L MCH (27.0-33.0) pg 23.1 L MCHC (32.0-36.0) % 31.0 L RDW (11.8-14.1) % 18.2 H Plt Count (130-400) 10^3/uL 317 MPV (8.0-11.0) fL 9.7 Immature Gran % 0.7 Neutrophils % 69.9 Lymphocytes % 17.5 Monocytes % 8.5 Eosinophils % 2.9 Basophils % 0.5 Nucleated RBC % (0.0-0.3) % 0.0 Absolute Neutrophils (1.2-6.7) 10^3/uL 9.07 H Absolute Lymphocytes (1.2-3.4) 10^3/uL 2.27 Absolute Monocytes (0.1-0.8) 10^3/uL 1.10 H Absolute Eosinophils (0.0-0.7) 10^3/uL 0.38 Absolute Basophils (0.0-0.2) 10^3/uL 0.06 Sodium (136-145) mmol/L 139 Potassium (3.5-5.1) mmol/L 3.7 Chloride (98-107) mmol/L 102 Carbon Dioxide (21.0-32.0) mmol/L 25.7 Anion Gap (3-11) mmol/L 11.3 H BUN (7-18) mg/dL 22 H Creatinine (0.70-1.30) mg/dL 1.8 H Estimated GFR/1.73 m2 (mL/min/1.73m2) 37.27 Glucose (74-106) mg/dL 96 Calcium (8.5-10.1) mg/dL 8.5 Total Bilirubin (0.2-1.0) mg/dL 0.3 AST (15-37) U/L 30 ALT (16-63) U/L 33 Alkaline Phosphatase (46-116) U/L 67 Total Protein (6.4-8.2) g/dL 6.9 Albumin (3.4-5.0) g/dL 3.3 L Urine Color (Yellow) Yellow Urine Clarity (Clear) Clear Urine pH (5-8) 6.0 Ur Specific [place] (1.005-1.025) 1.010 Urine Protein (Negative) mg/dL Negative Urine Ketones (Negative) mg/dL Negative Urine Blood (Negative) Negative Urine Nitrite (Negative) Negative Urine Bilirubin (Negative) Negative Urine Urobilinogen (Up TO 0.2) EU/dL 0.2 Ur Leukocyte Esterase (Negative) Negative Urine Glucose (Negative) mg/dL Negative Stl C.difficile Tox PCR (Negative) Range/Units 03/06/22 14:24 WBC (4.4-10.8) 10^3/uL RBC (4.36-5.78) 10^6/uL Hgb (13.5-17.5) g/dL Hct (40.0-50.0) % MCV (80-95) fL MCH (27.0-33.0) pg MCHC (32.0-36.0) % RDW (11.8-14.1) % Plt Count (130-400) 10^3/uL MPV (8.0-11.0) fL Immature Gran % Neutrophils % Lymphocytes % Monocytes % Eosinophils % Basophils % Nucleated RBC % (0.0-0.3) % Absolute Neutrophils (1.2-6.7) 10^3/uL Absolute Lymphocytes (1.2-3.4) 10^3/uL Absolute Monocytes (0.1-0.8) 10^3/uL Absolute Eosinophils (0.0-0.7) 10^3/uL Absolute Basophils (0.0-0.2) 10^3/uL Sodium (136-145) mmol/L Potassium (3.5-5.1) mmol/L Chloride (98-107) mmol/L Carbon Dioxide (21.0-32.0) mmol/L Anion Gap (3-11) mmol/L BUN (7-18) mg/dL Creatinine (0.70-1.30) mg/dL Estimated GFR/1.73 m2 (mL/min/1.73m2) Glucose (74-106) mg/dL Calcium (8.5-10.1) mg/dL Total Bilirubin (0.2-1.0) mg/dL AST (15-37) U/L ALT (16-63) U/L Alkaline Phosphatase (46-116) U/L Total Protein (6.4-8.2) g/dL Albumin (3.4-5.0) g/dL Urine Color (Yellow) Urine Clarity (Clear) Urine pH (5-8) Ur Specific [place] (1.005-1.025) Urine Protein (Negative) mg/dL Urine Ketones (Negative) mg/dL Urine Blood (Negative) Urine Nitrite (Negative) Urine Bilirubin (Negative) Urine Urobilinogen (Up TO 0.2) EU/dL Ur Leukocyte Esterase (Negative) Urine Glucose (Negative) mg/dL Stl C.difficile Tox PCR (Negative) Negative HPI General Mode of arrival: ambulatory . Date/Time Provider Initiated Documentation: 03/06/22 13:45 . Limitations to Documentation: no limitations . Information obtained by: patient . HPI Narrative: Patient is a 71-year-old male with a history of hypertension, diabetes, hyperlipidemia, GERD, Almaraz's esophagus, chronic kidney disease who was recently treated for diverticulitis with ciprofloxacin and Flagyl presents with persistent diarrhea for the past 10 days. Review of records notes that patient has been on antibiotics several times recently in the last few months, previou sly for COPD with doxycycline and most recently with Cipro and Flagyl. Patient states he finished his Cipro and Flagyl today. He states he has had 9 episodes daily of loose brown and yellow diarrhea. He states it has been watery and is now more formed but persistent and he frequently has leakage. Patient admits to occasional lower abdominal cramping prior to diarrhea. He denies any fever, jeison sea, vomiting or urinary symptoms. He denies any relief with Imodium or [id number] antidiarrheal agents. Related Data Home Medications Medication Instructions Recorded Confirmed gabapentin 300 mg capsule 1,200 mg PO TID 04/18/14 03/06/22 glimepiride 1 mg tablet 2 mg PO BID 04/18/14 03/06/22 metformin 500 mg tablet 1,000 mg PO BID 04/18/14 03/06/22 olmesartan 20 mg tablet (Benicar) 20 mg PO DAILY 04/18/14 03/06/22 omeprazole 20 mg capsule,delayed 40 mg PO DAILY 04/18/14 03/06/22 release atorvastatin 80 mg tablet 80 mg PO DAILY 06/24/21 03/06/22 diltiazem HCl 120 mg 120 mg PO DAILY 06/24/21 03/06/22 capsule,extended release 24 hr (Cartia XT) duloxetine 60 mg capsule,delayed 60 mg PO BID 06/24/21 03/06/22 release furosemide 20 mg tablet 20 mg PO DAILY 06/24/21 03/06/22 ammonium lactate 12 % topical cream 1 applic topical DAILY 06/29/21 03/06/22 multivitamin (Daily Multi-Vitamin 1 tab PO DAILY 06/29/21 03/06/22 tablet) trazodone 50 mg tablet 50 mg PO QHS PRN sleep #90 tabs 12/10/21 03/06/22 albuterol sulfate 90 mcg/actuation 2 puff inhalation Q4H PRN 01/20/22 03/06/22 aerosol inhaler shortness of breath or wheezing #8.5 grams cetirizine 10 mg tablet 10 mg PO DAILY 02/24/22 03/06/22 cetirizine 10 mg tablet (Zyrtec) 10 mg PO DAILY PRN allergy 02/24/22 03/06/22 symptoms #14 tabs ciprofloxacin HCl 500 mg tablet 500 mg PO BID #20 tabs 02/24/22 03/06/22 (Cipro) diphenoxylate-atropine 2.5 1 tab PO TID 02/24/22 03/06/22 mg-0.025 mg tablet diphenoxylate-atropine 2.5 1 tab PO TID PRN diarrhea #60 tabs 02/24/22 03/06/22 mg-0.025 mg tablet (Lomotil) prednisone 20 mg tablet 40 mg PO DAILY 02/24/22 03/06/22 prednisone 20 mg tablet 40 mg PO DAILY #10 tabs 02/24/22 03/06/22 cholestyramine (with sugar) 4 gram 1 pwd PO BID #348.6 grams 03/06/22 oral powder Previous Rx's Medication Instructions Recorded trazodone 50 mg tablet 50 mg PO QHS PRN sleep #90 tabs 12/10/21 albuterol sulfate 90 mcg/actuation 2 puff inhalation Q4H PRN 01/20/22 aerosol inhaler shortness of breath or wheezing #8.5 grams cetirizine 10 mg tablet (Zyrtec) 10 mg PO DAILY PRN allergy 02/24/22 symptoms #14 tabs ciprofloxacin HCl 500 mg tablet 500 mg PO BID #20 tabs 02/24/22 (Cipro) diphenoxylate-atropine 2.5 1 tab PO TID PRN diarrhea #60 tabs 02/24/22 mg-0.025 mg tablet (Lomotil) prednisone 20 mg tablet 40 mg PO DAILY #10 tabs 02/24/22 cholestyramine (with sugar) 4 gram 1 pwd PO BID #348.6 grams 03/06/22 oral powder Allergies Allergy/AdvReac Type Severity Reaction Status Date / Time No Known Allergies Allergy Verified 02/24/22 15:14 General Stated Complaint: Nausea/Vomit/Diar MAXIMILIANO: 3 Review of Systems All systems reviewed & are unremarkable except as noted in HPI and below Constitutional Constitutional: Denies chills, Denies excessive sweating, Denies fatigue, Denies fever(s), Denies weakness and Denies weight loss Eyes Eyes: Reports system reviewed and no additional complaints, except as documented and Denies blurry vision ENT Ears, Nose, Mouth, and Throat: Denies vertigo, Denies dizziness, Denies otalgia, Denies nasal congestion, Denies sore throat and Denies throat swelling Cardiovascular Cardiovascular: Denies chest pain, Denies syncope, Denies rapid heart rate and Denies dyspnea Respiratory Respiratory: Denies chest congestion, Denies cough, Denies pain on inspiration and Denies dyspnea Gastrointestinal Gastrointestinal: Denies abdominal pain, Reports diarrhea and Denies vomiting Genitourinary Genitourinary: Denies hematuria, Denies dysuria and Denies flank pain Musculoskeletal Musculoskeletal: Denies back pain and Denies joint swelling Integumentary/Breasts Skin/Breast: Denies lesions and Denies rash Neurologic Neurologic: Denies behavioral changes, Denies confusion, Denies vertigo, Denies dizziness, Denies syncope, Denies localized weakness and Denies weakness Psychiatric Psychiatric: Denies behavioral changes, Denies confusion and Denies depression Endocrine Endocrine: Denies excessive sweating and Denies fatigue Hematologic/Lymphatic Hematologic/Lymphatic: Denies easy bruising and Denies lymphadenopathy Allergic/Immunologic Allergic/Immunologic: Denies throat swelling PFSH All Active Problems (Updated 03/06/22 @ 18:06 by Jemma Lopez DO) Diverticulitis (Chronic) Allergic reaction (Acute) Chronic diarrhea (Acute) Diarrhea (Acute) Anemia (Chronic) Chronic mild anemia presumed in part secondary to chronic kidney disease History of smoking (Acute) Quit 23 years ago. Neurogenic bladder (Acute ~12/27/18) Type 2 diabetes mellitus with diabetic neuropathy, unspecified (Acute) COPD (chronic obstructive pulmonary disease) (Chronic) CAD (coronary artery disease) (Chronic) Actinic keratoses (Acute) Chronic low back pain (Acute) Chronic kidney disease (Chronic) 11/2021, stage 3 , Cr, 1.8 Bilateral carpal tunnel syndrome (Acute) Brachial neuritis (Acute) Cervical spondylosis with radiculopathy (Acute) Rosacea (Acute) GERD (gastroesophageal reflux disease) (Chronic) Barretts esophagus (Acute) PVD (peripheral vascular disease) (Chronic ~12/09/20) Body mass index exceeds 30 (Acute) Gout (Chronic) Hyperlipidemia (Acute) Squamous cell carcinoma of skin (Acute) left hand Acute cholecystitis due to biliary calculus (Acute) 06/2021- tx at [facility] Urinary retention (Acute 08/30/17) Medical History BPH w urinary obs/LUTS (01/30/16) Diabetes 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) HTN (hypertension) UTI (urinary tract infection) Surgical History History of appendectomy (~07/18/1958) History of back surgery History of cholecystectomy (~07/21/21) History of endoscopy (~05/24/17) w/ biopsy- 03/21/18, 09/19/18, 03/27/19, 04/22/20 History of esophagogastroduodenoscopy (EGD) (~04/22/20) History of foot surgery (~07/18/08) right foot History of hip surgery History of incision and drainage (~07/18/90) perianal abscess- w/ internal sphincterotomy History of shoulder surgery (~07/18/74) History of surgical removal of pilonidal cyst Family History Mother Alcohol use disorder Father , 76 Cancer Sister Alcohol use disorder Social History Smoking/Tobacco Use Status: Former Tobacco Use tobacco type: cigarettes Quit Date: 07/18/00 Tobacco: How many years used: 35 Second Hand Exposure: Yes Smoking risk assessment performed?: Yes Alcohol Intake: former Drug use: Never Substance use type: does not use Caregiver/Support person: Yes Household members: significant other Housing: house Communication Needs: None Do you need help understanding health information?: Rarely Pets and animals: No Sexually active: No Do you think of yourself as: straight/heterosexual Current gender identity: male What is your relationship status?: living with partner How often do you talk on the phone with friends or family?: three or more times per week How often do you get together with friends or relatives?: twice per week How often do you attend pentecostal or orthodox services?: decline to answer Do you belong to any clubs or organized social groups?: yes Panel score (0-1 are the most socially isolated patients): 3 What type of physical activity do you participate in: walking Duration: 60-90 minutes/day Frequency: 5-6 times per week Keshia/Oriental Orthodox: Sikh Special keshia needs: No Seatbelt use: always Drive intox or ride w/intox medical van driver: No Do you feel safe at home: Yes Do you feel safe in your relationship?: Yes Exam Const General: cooperative and healthy appearing Orientation: alert, awake and oriented x3 HENMT Head: normal to inspection Ears: hearing grossly normal bilaterally and external ears normal General nose exam: external nose normal Face and sinus: normal facial exam Eyes General: appearance normal, both eyes and all related structures Eyelids: eyelids normal Pupils: PERRL EOM: EOM intact bilaterally Neck Neck: normal visual inspection Lymphatic: no lymphadenopathy noted Chest Chest: normal inspection of the chest Resp Effort & Inspection: normal respiratory effort and able to speak in complete sentences Auscultation: clear to auscultation bilaterally Cardio Rate: regular rate Rhythm: regular rhythm GI Inspection: normal to inspection Palpation: soft, not firm, no guarding, no hepatosplenomegaly, no masses and tender in the LLQ Auscultation: hypoactive bowel sounds Back/Spine/Pelvis Back: no CVA tenderness Skin General skin exam: no rashes or lesions noted Neuro General: patient alert and patient awake Cognition: normal cognition Speech: speech normal Gait: normal gait Motor: muscle tone normal throughout Sensory Exam: no sensory deficits noted Extrem General: normal to inspection, full ROM and capillary refill normal Psych Appearance: grossly normal Mental Status: mental status grossly normal Speech and Movement: speech and movement normal Affect: normal affect Thought Process: normal Course Vital Signs Vital signs: Vital Signs Temperature 98.2 F 03/06/22 13:47 Pulse 76 03/06/22 13:47 Respiratory Rate 18 03/06/22 13:47 Blood Pressure 110/63 03/06/22 13:47 Pulse Oximetry 96 03/06/22 13:47 Temperature 98.2 F 03/06/22 13:47 Temperature Source Temporal Artery Scan 03/06/22 13:47 Pulse 76 03/06/22 13:47 Respiratory Rate 18 03/06/22 13:47 Blood Pressure 110/63 03/06/22 13:47 Pulse Oximetry 96 03/06/22 13:47
[2022-03-06 14:21] LABS: Abs Immature Grans 0.09 10^3/uL (0.0-0.06); Absolute Lymphocyte Count 2.27 10^3/uL (1.2-3.4); Basophils % 0.5; Eosinophils % 2.9; HCT 32.3 % (40.0-50.0); Immature Grans % 0.7; Lymphocytes % 17.5; MCH 23.1 pg (27.0-33.0); MCV 75 fL (80-95); MPV 9.7 fL (8.0-11.0); Monocytes % 8.5; Neutrophils % 69.9; Platelet Count 317 10^3/uL (130-400); RBC 4.33 10^6/uL (4.36-5.78); RDW 18.2 % (11.8-14.1); RDW-SD 49.2 fL; WBC 12.98 10^3/uL (4.4-10.8)
[2022-03-06 14:22] LABS: Absolute Basophil Count 0.06 10^3/uL (0.0-0.2); Absolute Eosinophil Count 0.38 10^3/uL (0.0-0.7); Absolute Neutrophil Count 9.07 10^3/uL (1.2-6.7)
[2022-03-06 14:32] LABS: ALT 33 U/L (16-63); AST 30 U/L (15-37); Albumin 3.3 g/dL (3.4-5.0); Alkaline Phosphatase 67 U/L (46-116); Anion Gap 11.3 mmol/L (3-11); BUN 22 mg/dL (7-18); Bilirubin, Total 0.3 mg/dL (0.2-1.0); CO2 25.7 mmol/L (21.0-32.0); CREATININE 1.8 mg/dL (0.70-1.30); Calcium 8.5 mg/dL (8.5-10.1); Chloride 102 mmol/L (98-107); Estimated GFR 37.27 (mL/min/1.73m2); Glucose 96 mg/dL (74-106); Potassium 3.7 mmol/L (3.5-5.1); Sodium 139 mmol/L (136-145); Total Protein 6.9 g/dL (6.4-8.2)
[2022-03-06 14:39] VITALS: BP 119/71; BP 125/78; PULSE 65; PULSE 71
[2022-03-06 14:45] LABS: Bilirubin Negative (Negative); Blood Negative (Negative); Clarity Clear (Clear); Glucose Negative (Negative); Ketones Negative (Negative); Leukocyte Esterase Negative (Negative); Nitrite Negative (Negative); Urobilinogen 0.2 EU/dL (Up TO 0.2)
--- NOTE | 2022-03-06 14:45 | DI.CT_ITS ---
Exam(s) CT ABDOMEN PELVIS W EXAM: CT ABDOMEN PELVIS W CLINICAL HISTORY: LLQ pain, chronic diarrhea, recent diverticulitis TECHNIQUE: COMPARISON: CT CT ABDOMEN PELVIS W from 02/24/2022 FINDINGS: CT examination of the abdomen and pelvis was performed with bolus infusion of 100 cc of Omnipaque 350 . Images obtained through the lung bases are unremarkable. Note is made of coronary artery calcification. The liver appears normal with no evidence of a focal mass. Spleen is unremarkable in appearance.. Gallbladder has been surgically removed, bile ducts are unremarkable. Pancreas is unremarkable in appearance. Adrenals appear normal bilaterally. Kidneys appear normal with no evidence of renal mass, hydronephrosis, or nephrolithiasis. Unremarkab le bladder. There is no evidence of abdominal or pelvic adenopathy. Abdominal aorta is of normal diameter and no abnormality is seen involving major visceral branches.. Appendix is normal. No evidence diverticulitis or bowel obstruction. Previously described wall thick ening of the rectosigmoid seen on examination of February 24 has resolved. There remains a moderate quantity of fluid in the colon and small bowel consistent with the clinical complaint diarrhea. No significant abdominal wall hernia seen. Impression: No evidence of acute process, resolution of previously noted wall thickening of rectosigmoid.. RADIATION DOSE DELIVERED: 1,255.42mGy.cm Total DLP 1,255.42mGy.cm Total DLP !Error CTDIvol DATA REPOSITORY: All CT scans at this facility are submitted to the National Radiology Data Registry (NRDR) Dose Index Registry (DIR) with the [employer] (ACR). RADIATION OPTIMIZATION: All CT scans at this facility use at least one of these dose optimization te chniques: automated exposure control; mA and/or kV adjustment per patient size (includes targeted exa ms where dose is matched to clinical indication); or iterative reconstruction.
[2022-03-06 15:04] VITALS: BP 120/68; PULSE 68; O2SAT 92
[2022-03-06] MEDS: Normal Saline 250 ML 500 ML IV (15:11)
[2022-03-06 15:24] LABS: C Diff PCR Negative (Negative)
[2022-03-06] MEDS: Omnipaque 350 MG/ML 100 ML BTL IJ (16:35)
--- NOTE | 2022-03-06 16:53 | DI.VRAD_ITS ---
PROCEDURE INFORMATION: Exam: CT Abdomen And Pelvis With Contrast Exam date and time: 03/06/2022 4:25 PM Age: 71 years old Clinical indication: Other: Llq pain, chronic diarrhea, recent diverticulitis; Prior surgery; Surgery date: 6+ months; Surgery type: Cholecysectomy, appendectomy, sphincerotomy , back surgery TECHNIQUE: Imaging protocol: Computed tomography of the abdomen and pelvis with contrast. Contrast material: OMNIPAQUE 350; Contrast volume: 100 ml; Contrast route: INTRAVENOUS (IV); COMPARISON: CT ABDOMEN PELVIS W 02/24/2022 6:43 PM FINDINGS: Lungs: Minimal bibasilar atelectasis and scarring, with mild right lower lobe bronchiolectasis. Heart: Atherosclerotic calcification of the visualized left anterior descending and right coronary arteries. Liver: Normal. Gallbladder and bile ducts: Gallbladder surgically absent. Pancreas: Normal. Spleen: Normal. Adrenal glands: Normal. No mass. Kidneys and ureters: Simple right renal cyst, for which no further evaluation is necessary. Stomach and bowel: 16 mm duodenal diverticulum. Nondilated, gas and fluid-filled small and large bowel, likely enteritis/diarrhea. Minimal colonic diverticulosis. Appendix: Appendix is surgically absent. Intraperitoneal space: Unremarkable. No free air. No significant fluid collection. Vasculature: Atherosclerotic disease of the abdominal aorta and iliac arteries. Phleboliths within the pelvis. Lymph nodes: Unremarkable. No enlarged lymph nodes. Urinary bladder: Unremarkable as visualized. Reproductive: Prostate gland is enlarged, measuring 5.3 cm in AP diameter by 6.1 cm in transverse dimension. Bones/joints: Degenerative changes of the hips and sacroiliac joints. Multilevel thoracolumbar spine degenerative disc space narrowing and osteophyte formation. Bilateral sacroiliac joint fusion. Soft tissues: Normal. IMPRESSION: Nondilated, gas and fluid-filled small and large bowel, likely enteritis/diarrhea. Dictated and Authenticated by: Kurt Lauren MD. Ordering:KATHRYN Easton MD
--- NOTE | 2022-03-06 18:12 | NUR.NOTE ---
Nursing Note: Referral faxed to [facility] for chronic diarrhea in 1 to 2 weeks.
[2022-03-06] MEDS: Cholestyramine/Aspartame PKT 2 EACH PO (18:20)
[2022-03-06 18:25] VITALS: BP 120/68; PULSE 68; RESP 16; O2SAT 92
[2022-03-07 23:12] LABS: Campylobacter PCR Negative (Negative); Salmonella PCR Negative (Negative); Shiga Toxin PCR Negative (Negative); Shigella/Enteroinvasive Ecoli Negative (Negative)
== END 2022-03-06 18:24 | disposition home or self-care (01) ==
PROVIDERS: Emergency Provider Physician Assistant; PCP Nurse Practitioner Family
DX: K52.9 Noninfective gastroenteritis and colitis, unspecified (principal); E11.22 Type 2 diabetes mellitus with diabetic chronic kidney disease; I12.9 Hypertensive chronic kidney disease with stage 1 through stage 4 chronic kidney disease, or unspecified chronic kidney disease; N18.9 Chronic kidney disease, unspecified; J44.9 Chronic obstructive pulmonary disease, unspecified; Z79.52 Long term (current) use of systemic steroids; Z79.84 Long term (current) use of oral hypoglycemic drugs; Z87.891 Personal history of nicotine dependence
CPT/HCPCS: 80053; 87493; 87505; 99285; 74177; 81003; 85025; 87177; 99284; J3490

== ENCOUNTER → 2022-03-16 12:53 | Outpatient (BNVA) | payer MEDICARE, SELFPAY | PROVIDERS: PCP Nurse Practitioner Family; Referring Provider Nurse Practitioner Family; Visit Provider Surgery | DX: R19.7 Diarrhea, unspecified (principal) | CPT/HCPCS: 99203; 99213 ==

== ENCOUNTER 2022-05-28 10:30 | Outpatient (REF) | payer MEDICARE, SELFPAY ==
[2022-05-28 11:25] LABS: Bilirubin Negative (Negative); Blood Negative (Negative); Clarity Sl Cloudy (Clear); Glucose Negative (Negative); Ketones Negative (Negative); Leukocyte Esterase Trace (Negative); Nitrite Negative (Negative); Specific Gravity 1.015 (1.005-1.025); Urobilinogen 0.2 EU/dL (Up TO 0.2)
[2022-05-28 11:33] LABS: Bacteria Rare HPF (Negative); C & S Indicated? Yes; Casts Negative LPF (Negative); Crystals Negative HPF (Negative); Epithelial Cells Rare HPF (Negative); Mucus Negative (Negative); RBC Negative HPF (0-2); WBC 20-50 HPF (0-5)
== END 2022-05-28 10:31 | disposition home or self-care (01) ==
LOC: LBN 10:30
PROVIDERS: PCP Nurse Practitioner Family; Visit Provider Urology
DX: N30.00 Acute cystitis without hematuria (principal)
CPT/HCPCS: 87077; 81003; 81015; 87086; 87186

== ENCOUNTER 2022-06-17 03:42 | Outpatient (CLI) | payer MEDICARE, SELFPAY ==
[2022-06-17 13:39] LABS: Hemoglobin A1C 7.9 % (<5.7)
== END 2022-06-17 03:43 | disposition home or self-care (01) ==
LOC: LOS 03:42
PROVIDERS: PCP Nurse Practitioner Family; Visit Provider Nurse Practitioner Family
DX: E11.9 Type 2 diabetes mellitus without complications (principal)
CPT/HCPCS: 36415; 83036

== ENCOUNTER 2022-12-08 05:39 | Outpatient (CLI) | payer MEDICARE, SELFPAY ==
[2022-12-08 14:05] LABS: Hemoglobin A1C 6.7 % (<5.7)
[2022-12-08 14:24] LABS: Anion Gap 7.6 mmol/L (3-11); BUN 23 mg/dL (7-18); CO2 28.4 mmol/L (21.0-32.0); CREATININE 1.6 mg/dL (0.70-1.30); Calcium 9.6 mg/dL (8.5-10.1); Calculated LDL 36 mg/dL (<100); Chloride 106 mmol/L (98-107); Cholesterol 117 mg/dL (<200); Estimated GFR 45.21 (mL/min/1.73m2); Glucose 90 mg/dL (74-106); HDL Cholesterol 48 mg/dL (40-60); Potassium 4.3 mmol/L (3.5-5.1); Sodium 142 mmol/L (136-145); Triglyceride 165 mg/dL (<150)
== END 2022-12-08 05:40 | disposition home or self-care (01) ==
LOC: LBO 05:39
PROVIDERS: PCP Nurse Practitioner Family; Visit Provider Nurse Practitioner Family
DX: E11.40 Type 2 diabetes mellitus with diabetic neuropathy, unspecified; N18.9 Chronic kidney disease, unspecified
CPT/HCPCS: 36415; 80048; 80061; 83036

== ENCOUNTER 2023-02-02 08:00 | Observation (INO) | payer MEDICARE, SELFPAY ==
[2023-02-02] VITALS (71 sets, daily range): BP systolic 106–136; BP diastolic 52–84; PULSE 70–100; RESP 1–31; TEMP 35.9–37.6; O2SAT 85–100
--- NOTE | 2023-02-02 08:00 | DI.RAD_ITS ---
Exam(s) XR PORTABLE CHEST AP EXAM: XR PORTABLE CHEST AP CLINICAL HISTORY: Shortness of breath TECHNIQUE: 2D digital imaging was performed. COMPARISON: CR XR CHEST 2V PA LATERAL from 02/03/2022 FINDINGS: LUNGS: Right lower lobe infiltrate. Left lung is clear. No pleural abnormality seen. HEART: Normal size. AORTA: Tortuous BONES: Unremarkable for age. Soft tissues: Unremarkable. IMPRESSION: Right lower lobe pneumonia. DATA REPOSITORY: RADIATION DOSE DELIVERED:
--- NOTE | 2023-02-02 08:00 | RT.EKG_ITS ---
APPROVED REPORT Exam: Resting ECG Reason for Exam: sob Patient Location: E HR:77 bpm ECG Measurements Heart Rate 77 AXIS AL 209 P 37 QRSd 163 QRS -23 QT 402 T 119 QTc 455 Conclusion Sinus rhythm...normal P axis, V-rate 60- 99 Left bundle branch block...QRSd>120, broad/notched R ST elevation secondary to IVCD...Multiple VCG criteria sinus rhythm, left axis, LBBB
--- NOTE | 2023-02-02 08:21 | ED.GENADUL_ITS ---
Discharge Plan Disposition Patient Disposition: Admit to [facility] Condition: Fair Discharge Details Clinical Impression: Right lower lobe pneumonia, Hypoxia Admit Date/Time: 02/02/23 09:58 Admit Provider: Darcy Jackson Attending Provider: Darcy Jackson Primary Care Provider: Vega Scherer ED Provider: Karla Sandhu Medical Decision Making 72-year-old man presents to the emergency department with a chief complaint of productive cough and sore throat which began on and Tuesday of last week. He also reports fever. He did take Tylenol prior to arrival. He does have a past medical history of type 2 diabetes mellitus, COPD CAD, chronic kidney disease, Almaraz's esophagus, GERD, peripheral vascular disease, gout hyperlipidemia. He denies any chest pain he does have some rhonchi noted in his right upper and lower lobes. He also reports some diarrhea. Denies any nausea vomiting or problems urinating. He presents with a room air sat from 88-89. He was placed on 2 L nasal cannula by instructional support services director upon arrival to the room. EKG was reviewed by Dr. Maximiliano Martinez ER attending, no old EKG available for review. EKG shows left bundle branch block. Work-up ordered including serial troponins, blood cultures x2, chest x-ray CBC CMP rapid strep and fluid swab. Differential diagnosis includes but not limited to strep, flu, Covid, pneumonia, COPD exacerbation. Dexamethasone 10 mg p.o. ordered, DuoNeb. Chest x-ray shows right lower lobe pneumonia, rapid strep negative. Doxycycline 100 mg IV piggyback ordered. Will try RA trial after Nebulizer. Initial troponin within normal limits, COVID flu RSV negative. Patient is not complaining of any chest pain. Will consider canceling the second troponin. 0925: Patient having epistaxis from the right nare. He said that this happened the other night as well. He does take a baby aspirin daily. Nasal clamp applied to nose. Will reassess in approximately 15 minutes. PT PTT added onto labs. He denies any new unusual bruising. O2 sat on room air at this time is 92%. He did not take baby aspirin this morning. 0940: Patient failed room air trial O2 sat down to 85 to 90% on room air. Patient is encouraged to take deep breaths. Patient placed back on 2 L nasal cannula. RT paged for humidified O2 patient given an incentive spirometer. Epistaxis has stopped at this time. Patient states he has never been told he has COPD, he usually walks 4 miles a day. Will page hospitalist for admission for right lower lobe pneumonia and hypoxia. 09 53: Spoke with Dr. Jackson who is on for hospitalist regarding patient case in detail she recommends Rocephin IV piggyback in addition to the doxycycline. She agrees to accept patient for admission. Discussed plan of care with patient and family who verbalized understanding and are in agreement with the plan. Patient placed on 4 L nasal cannula titrated up by instructional support services director prior to transfer up to the floor. This text was generated using [employer] system, please disregard any oddities of phrase or misspellings. Medical Records Medical records reviewed: Yes I reviewed the patient's medical records. Imaging Data Radiologic Study: Imaging: X-Ray My impression: Right Lower lobe infiltrate Radiologist's impression: EXAM:? XR PORTABLE CHEST AP CLINICAL HISTORY:? Shortness of breath TECHNIQUE:? 2D digital imaging was performed. COMPARISON:? CR XR CHEST 2V PA ? LATERAL from 02/03/2022 FINDINGS: LUNGS: Right lower lobe infiltrate.? Left lung is clear.? No pleural abnormality seen. HEART: Normal size. AORTA: Tortuous BONES: Unremarkable for age.? Soft tissues: Unremarkable. IMPRESSION: Right lower lobe pneumonia. Lab Data Lab results reviewed: Yes I reviewed the patient's lab results. Labs: 02/02/23 09:00 Blood Blood Culture - Pending 02/02/23 08:31 Tonsil - Not Specified Group A Streptococcus Culture - Pending 02/02/23 08:25 Blood Blood Culture - Pending Laboratory Tests Range/Units 02/02/23 02/02/23 02/02/23 08:25 08:25 08:25 WBC (4.4-10.8) 10^3/uL 11.77 H RBC (4.36-5.78) 10^6/uL 4.20 L Hgb (13.5-17.5) g/dL 10.2 L Hct (40.0-50.0) % 32.0 L MCV (80-95) fL 76 L MCH (27.0-33.0) pg 24.3 L MCHC (32.0-36.0) % 31.9 L RDW (11.8-14.1) % 17.4 H Plt Count (130-400) 10^3/uL 278 MPV (8.0-11.0) fL 9.3 Immature Gran % 0.7 Neutrophils % 71.5 Lymphocytes % 10.3 Monocytes % 16.2 Eosinophils % 0.9 Basophils % 0.4 Nucleated RBC % (0.0-0.3) % 0.0 Absolute Neutrophils (1.2-6.7) 10^3/uL 8.42 H Absolute Lymphocytes (1.2-3.4) 10^3/uL 1.21 Absolute Monocytes (0.1-0.8) 10^3/uL 1.91 H Absolute Eosinophils (0.0-0.7) 10^3/uL 0.11 Absolute Basophils (0.0-0.2) 10^3/uL 0.05 RBC Morphology See Below Basophilic Stippling Present PT (9.3-11.0) sec INR (0.9-1.1) APTT (21.5-31.9) sec Sodium (136-145) mmol/L 137 Potassium (3.5-5.1) mmol/L 4.0 Chloride (98-107) mmol/L 103 Carbon Dioxide (21.0-32.0) mmol/L 24.3 Anion Gap (3-11) mmol/L 9.7 BUN (7-18) mg/dL 24 H Creatinine (0.70-1.30) mg/dL 1.6 H Est GFR (CKD-EPI 2020) (mL/min/1.73m2) 45.21 Glucose (74-106) mg/dL 200 H Calcium (8.5-10.1) mg/dL 8.9 Total Bilirubin (0.2-1.0) mg/dL 0.6 AST (15-37) U/L 47 H ALT (16-63) U/L 31 Alkaline Phosphatase (46-116) U/L 109 Troponin I (<or=60) ng/L < 50 NT-Pro-B Natriuret Pep (<300) pg/mL Total Protein (6.4-8.2) g/dL 7.8 Albumin (3.4-5.0) g/dL 2.8 L COVID-19 Source Nasopharynx SARS-CoV-2 (PCR) (Negative) Negative Influenza Type A (PCR) (Negative) Negative Influenza Type B (PCR) (Negative) Negative RSV (PCR) (Negative) Negative Add-On Test Request Range/Units 02/02/23 02/02/23 02/02/23 08:25 08:25 08:25 WBC (4.4-10.8) 10^3/uL RBC (4.36-5.78) 10^6/uL Hgb (13.5-17.5) g/dL Hct (40.0-50.0) % MCV (80-95) fL MCH (27.0-33.0) pg MCHC (32.0-36.0) % RDW (11.8-14.1) % Plt Count (130-400) 10^3/uL MPV (8.0-11.0) fL Immature Gran % Neutrophils % Lymphocytes % Monocytes % Eosinophils % Basophils % Nucleated RBC % (0.0-0.3) % Absolute Neutrophils (1.2-6.7) 10^3/uL Absolute Lymphocytes (1.2-3.4) 10^3/uL Absolute Monocytes (0.1-0.8) 10^3/uL Absolute Eosinophils (0.0-0.7) 10^3/uL Absolute Basophils (0.0-0.2) 10^3/uL RBC Morphology Basophilic Stippling PT (9.3-11.0) sec 10.6 INR (0.9-1.1) 1.0 APTT (21.5-31.9) sec 37.0 H Sodium (136-145) mmol/L Potassium (3.5-5.1) mmol/L Chloride (98-107) mmol/L Carbon Dioxide (21.0-32.0) mmol/L Anion Gap (3-11) mmol/L BUN (7-18) mg/dL Creatinine (0.70-1.30) mg/dL Est GFR (CKD-EPI 2020) (mL/min/1.73m2) Glucose (74-106) mg/dL Calcium (8.5-10.1) mg/dL Total Bilirubin (0.2-1.0) mg/dL AST (15-37) U/L ALT (16-63) U/L Alkaline Phosphatase (46-116) U/L Troponin I (<or=60) ng/L Cancelled NT-Pro-B Natriuret Pep (<300) pg/mL Total Protein (6.4-8.2) g/dL Albumin (3.4-5.0) g/dL COVID-19 Source SARS-CoV-2 (PCR) (Negative) Influenza Type A (PCR) (Negative) Influenza Type B (PCR) (Negative) RSV (PCR) (Negative) Add-On Test Request DONE Range/Units 02/02/23 08:25 WBC (4.4-10.8) 10^3/uL RBC (4.36-5.78) 10^6/uL Hgb (13.5-17.5) g/dL Hct (40.0-50.0) % MCV (80-95) fL MCH (27.0-33.0) pg MCHC (32.0-36.0) % RDW (11.8-14.1) % Plt Count (130-400) 10^3/uL MPV (8.0-11.0) fL Immature Gran % Neutrophils % Lymphocytes % Monocytes % Eosinophils % Basophils % Nucleated RBC % (0.0-0.3) % Absolute Neutrophils (1.2-6.7) 10^3/uL Absolute Lymphocytes (1.2-3.4) 10^3/uL Absolute Monocytes (0.1-0.8) 10^3/uL Absolute Eosinophils (0.0-0.7) 10^3/uL Absolute Basophils (0.0-0.2) 10^3/uL RBC Morphology Basophilic Stippling PT (9.3-11.0) sec INR (0.9-1.1) APTT (21.5-31.9) sec Sodium (136-145) mmol/L Potassium (3.5-5.1) mmol/L Chloride (98-107) mmol/L Carbon Dioxide (21.0-32.0) mmol/L Anion Gap (3-11) mmol/L BUN (7-18) mg/dL Creatinine (0.70-1.30) mg/dL Est GFR (CKD-EPI 2020) (mL/min/1.73m2) Glucose (74-106) mg/dL Calcium (8.5-10.1) mg/dL Total Bilirubin (0.2-1.0) mg/dL AST (15-37) U/L ALT (16-63) U/L Alkaline Phosphatase (46-116) U/L Troponin I (<or=60) ng/L NT-Pro-B Natriuret Pep (<300) pg/mL 482 H Total Protein (6.4-8.2) g/dL Albumin (3.4-5.0) g/dL COVID-19 Source SARS-CoV-2 (PCR) (Negative) Influenza Type A (PCR) (Negative) Influenza Type B (PCR) (Negative) RSV (PCR) (Negative) Add-On Test Request HPI General Mode of arrival: wheelchair . Date/Time Provider Initiated Documentation: 02/02/23 08:09 . Limitations to Documentation: other (Poor Historian) . Information obtained by: patient, RN notes reviewed and old records reviewed . HPI Narrative: 72-year-old man presents to the emergency department with a chief complaint of productive cough and sore throat which began on and Tuesday of last week. He also reports fever. He did take Tylenol prior to arrival. He does have a past medical history of type 2 diabetes mellitus, COPD CAD, chronic kidney disease, Almaraz's esophagus, GERD, peripheral vascular disease, gout hyperlipidemia. He denies any chest pain he does have some rhonchi noted in his right upper and lower lobes. He also reports some diarrhea. Denies any nausea vomiting or problems urinating. He presents with a room air sat from 88-89. He was placed on 2 L nasal cannula by instructional support services director upon arrival to the room. Related Data Home Medications Medication Instructions Recorded Confirmed diltiazem HCl 120 mg 120 mg PO DAILY 06/24/21 02/02/23 capsule,extended release 24 hr (Cartia XT) duloxetine 60 mg capsule,delayed 60 mg PO BID 06/24/21 02/02/23 release furosemide 20 mg tablet 20 mg PO DAILY 06/24/21 02/02/23 ammonium lactate 12 % topical cream 1 applic topical DAILY 06/29/21 02/02/23 multivitamin (Daily Multi-Vitamin 1 tab PO DAILY 06/29/21 02/02/23 tablet) albuterol sulfate 90 mcg/actuation 2 puff inhalation Q4H PRN 01/20/22 02/02/23 aerosol inhaler shortness of breath or wheezing #8.5 grams lactobacillus combination no.9 4 4,000 mmu cells PO DAILY 03/16/22 12/16/22 billion cell capsule (Adult 50 Plus Probiotic) trazodone 50 mg tablet 50 mg PO QHS PRN sleep #90 tabs 04/30/22 02/02/23 atorvastatin 80 mg tablet 80 mg PO DAILY #90 tabs 06/30/22 02/02/23 glimepiride 1 mg tablet 2 mg PO BID #360 tabs 06/30/22 02/02/23 metformin 1,000 mg tablet 1,000 mg PO BID #180 tab-caps 06/30/22 02/02/23 blood sugar diagnostic (OneTouch #100 ea 08/09/22 12/16/22 Ultra Test strips) olmesartan 20 mg tablet (Benicar) 20 mg PO DAILY #90 tab-caps 10/20/22 02/02/23 gabapentin 600 mg tablet 1,200 mg PO BID #360 tabs 12/16/22 02/02/23 losartan 25 mg tablet 12.5 mg PO DAILY #45 tabs 12/16/22 02/02/23 omeprazole 40 mg capsule,delayed 40 mg PO BID #180 tab-caps 12/16/22 02/02/23 release varicella-zoster glycoE [id number] 0.5 ml IM ONCE #1 ea 12/16/22 12/16/22 adj(PF) 50 mcg/0.5 mL IM susp, kit (Shingrix (PF)) aspirin 81 mg tablet,delayed 81 mg PO DAILY 02/02/23 02/02/23 release Previous Rx's Medication Instructions Recorded albuterol sulfate 90 mcg/actuation 2 puff inhalation Q4H PRN 01/20/22 aerosol inhaler shortness of breath or wheezing #8.5 grams trazodone 50 mg tablet 50 mg PO QHS PRN sleep #90 tabs 04/30/22 atorvastatin 80 mg tablet 80 mg PO DAILY #90 tabs 06/30/22 glimepiride 1 mg tablet 2 mg PO BID #360 tabs 06/30/22 metformin 1,000 mg tablet 1,000 mg PO BID #180 tab-caps 06/30/22 blood sugar diagnostic (OneTouch #100 ea 08/09/22 Ultra Test strips) olmesartan 20 mg tablet (Benicar) 20 mg PO DAILY #90 tab-caps 10/20/22 gabapentin 600 mg tablet 1,200 mg PO BID #360 tabs 12/16/22 losartan 25 mg tablet 12.5 mg PO DAILY #45 tabs 12/16/22 omeprazole 40 mg capsule,delayed 40 mg PO BID #180 tab-caps 12/16/22 release varicella-zoster glycoE vacc-[id number] 0.5 ml IM ONCE #1 ea 12/16/22 adj(PF) 50 mcg/0.5 mL IM susp, kit (Shingrix (PF)) Allergies Allergy/AdvReac Type Severity Reaction Status Date / Time No Known Allergies Allergy Verified 02/02/23 08:12 General Stated Complaint: RespSymp MAXIMILIANO: 2 Review of Systems All systems reviewed & are unremarkable except as noted in HPI and below ENT Ears, Nose, Mouth, and Throat: Reports as per HPI, Reports sore throat, Denies throat swelling and Denies tongue swelling Cardiovascular Cardiovascular: Denies chest pain and Reports dyspnea Respiratory Respiratory: Reports cough, Reports excessive phlegm production (brown sputum) and Reports dyspnea Gastrointestinal Gastrointestinal: Reports diarrhea, Denies nausea and Denies vomiting Allergic/Immunologic Allergic/Immunologic: Denies throat swelling and Denies tongue swelling PFSH All Active Problems (Updated 02/02/23 @ 11:43 by Dagmar Pruett NP) Discharge planning issues (Acute) BPH w urinary obs/LUTS (Acute 01/30/16) Right lower lobe pneumonia (Acute) Hypoxia (Acute) Ambulatory dysfunction (Acute) Diarrhea (Acute) Anemia (Chronic) Chronic mild anemia presumed in part secondary to chronic kidney disease History of smoking (Acute) Quit 23 years ago. Neurogenic bladder (Acute ~12/27/18) Type 2 diabetes mellitus with diabetic neuropathy, unspecified (Acute) COPD (chronic obstructive pulmonary disease) (Chronic) CAD (coronary artery disease) (Chronic) Actinic keratoses (Acute) Chronic low back pain (Acute) Chronic kidney disease (Chronic) 11/2021, stage 3 , Cr, 1.8 Bilateral carpal tunnel syndrome (Acute) Brachial neuritis (Acute) Cervical spondylosis with radiculopathy (Acute) Rosacea (Acute) GERD (gastroesophageal reflux disease) (Chronic) Barretts esophagus (Acute) PVD (peripheral vascular disease) (Chronic ~12/09/20) Body mass index exceeds 30 (Acute) Gout (Chronic) Hyperlipidemia (Acute) Squamous cell carcinoma of skin (Acute) left hand Acute cholecystitis due to biliary calculus (Acute) 06/2021- tx at [facility] Urinary retention (Acute 08/30/17) Medical History BPH w urinary obs/LUTS (01/30/16) Diabetes 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) HTN (hypertension) UTI (urinary tract infection) Surgical History History of appendectomy (~07/18/1958) History of back surgery History of cholecystectomy (~07/21/21) History of endoscopy (~05/24/17) w/ biopsy- 03/21/18, 09/19/18, 03/27/19, 04/22/20 History of esophagogastroduodenoscopy (EGD) (~04/22/20) History of foot surgery (~07/18/08) right foot History of hip surgery History of incision and drainage (~07/18/90) perianal abscess- w/ internal sphincterotomy History of shoulder surgery (~07/18/74) History of surgical removal of pilonidal cyst Family History Mother Alcohol use disorder Father , 76 Cancer Sister Alcohol use disorder Social History Smoking/Tobacco Use Status: Former Tobacco Use tobacco type: cigarettes Quit Date: 07/18/00 Tobacco: How many years used: 35 Second Hand Exposure: Yes Smoking risk assessment performed?: Yes Alcohol Intake: former Drug use: Never Substance use type: does not use Caregiver/Support person: Yes Household members: significant other Housing: other Communication Needs: None Do you need help understanding health information?: Rarely Pets and animals: No Sexually active: No Do you think of yourself as: straight/heterosexual Current gender identity: male What is your relationship status?: living with partner How often do you talk on the phone with friends or family?: three or more times per week How often do you get together with friends or relatives?: twice per week How often do you attend methodist or anabaptism services?: decline to answer Do you belong to any clubs or organized social groups?: yes Panel score (0-1 are the most socially isolated patients): 3 What type of physical activity do you participate in: walking Duration: 60-90 minutes/day Frequency: 5-6 times per week Keshia/Congregation: Shinto Special keshia needs: No Seatbelt use: always Drive intox or ride w/intox powder truck driver: No Do you feel safe at home: Yes Do you feel safe in your relationship?: Yes Exam Narrative Exam Narrative: Constitutional: Alert and oriented x3. Appears stated age. Normal body habitus. Head: Normocephalic, no trauma. Eyes: Pupils PERRL, Red reflex noted, EOM's intact. Eyelids symmetrical without lesions, discharge, or swelling. ENT: Bilateral TM's WNL, External ear normal to inspection, no mastoid TTP, swelling, or erythema, Nasal turbinates WNL, no nasal discharge. Normal dentition, Posterior pharynx erythemic, uvula midline, positive exudate noted. Chest: RRR, Normal S1, S2, distal pulses intact. EKG shows a left bundle branch block Resp: Lungs clear to auscultation on left side. Right side, rhonchi in the upper and lower lobes. Abdomen: Soft, non-distended, Normoactive bowel sounds all 4 quads. Musculoskeletal: Unable to assess gait, 5/5 strength to all four extremities. Skin: No suspicious rashes or lesions. Capillary refill less than 2 sec. Neurologic: Cranial nerves II-XII intact. Alert and oriented x 3. Motor: No deficits noted. Sensory: Intact bilaterally all 4 extremities. Reflexes: DTR's intact bilaterally.. Hematologic/Lymphatic: No ecchymosis, no lymphadenopathy. Course Vital Signs Vital signs: Vital Signs Temperature 37.2 C 02/02/23 08:03 Pulse 89 02/02/23 08:03 Respiratory Rate 20 02/02/23 08:03 Blood Pressure 136/59 L 02/02/23 08:03 Pulse Oximetry 89 L 02/02/23 08:03 Temperature 37.2 C 02/02/23 08:03 Temperature Source Oral 02/02/23 08:03 Pulse 89 02/02/23 08:03 Respiratory Rate 20 02/02/23 08:03 Blood Pressure 136/59 L 02/02/23 08:03 Blood Pressure Position Sitting 02/02/23 08:03 Pulse Oximetry 94 02/02/23 08:15 Oxygen Delivery Method Nasal Cannula 02/02/23 08:15 Oxygen Flow Rate 2 02/02/23 08:15 Lab/Test Results Lab/Test Results: 02/02/23 08:09 Blood Blood Culture - Pending 02/02/23 08:09 Blood Blood Culture - Pending
[2023-02-02 08:40] LABS: Abs Immature Grans 0.08 10^3/uL (0.0-0.06); Absolute Basophil Count 0.05 10^3/uL (0.0-0.2); Absolute Eosinophil Count 0.11 10^3/uL (0.0-0.7); Absolute Lymphocyte Count 1.21 10^3/uL (1.2-3.4); Absolute Monocyte Count 1.91 10^3/uL (0.1-0.8); Basophils % 0.4; Eosinophils % 0.9; HGB 10.2 g/dL (13.5-17.5); Immature Grans % 0.7; Lymphocytes % 10.3; MCH 24.3 pg (27.0-33.0); MCHC 31.9 % (32.0-36.0); MCV 76 fL (80-95); MPV 9.3 fL (8.0-11.0); Monocytes % 16.2; Neutrophils % 71.5; Platelet Count 278 10^3/uL (130-400); RDW 17.4 % (11.8-14.1); RDW-SD 47.8 fL; WBC 11.77 10^3/uL (4.4-10.8)
[2023-02-02 08:41] LABS: Absolute Neutrophil Count 8.42 10^3/uL (1.2-6.7)
[2023-02-02] MEDS: Dexamethasone 10 MG/ML VIAL PO (08:59)
[2023-02-02] MEDS: DOXYCYCLINE 100 MG in Normal Saline 100 ML IVPB (08:59)
[2023-02-02] MEDS: Albuterol/Ipratropium 3 ML UPD VIAL UPD ×4 (09:00→20:08)
[2023-02-02 09:02] LABS: Diff Comment Diff Reviewed
[2023-02-02 09:03] LABS: Basophilic Stippling Present
[2023-02-02 09:04] LABS: ALT 31 U/L (16-63); AST 47 U/L (15-37); Albumin 2.8 g/dL (3.4-5.0); Alkaline Phosphatase 109 U/L (46-116); Anion Gap 9.7 mmol/L (3-11); BUN 24 mg/dL (7-18); Bilirubin, Total 0.6 mg/dL (0.2-1.0); CO2 24.3 mmol/L (21.0-32.0); CREATININE 1.6 mg/dL (0.70-1.30); Calcium 8.9 mg/dL (8.5-10.1); Chloride 103 mmol/L (98-107); Estimated GFR 45.21 (mL/min/1.73m2); Glucose 200 mg/dL (74-106); Sodium 137 mmol/L (136-145); Total Protein 7.8 g/dL (6.4-8.2); Troponin I < 50 ng/L (<or=60)
[2023-02-02 09:19] LABS: COVID-19 PCR Negative (Negative); Influenza A PCR Negative (Negative); Influenza B PCR Negative (Negative); RSV PCR Negative (Negative)
[2023-02-02 09:20] LABS: Source Nasopharynx
[2023-02-02 09:42] LABS: Prothrombin Time 10.6 sec (9.3-11.0)
[2023-02-02 10:08] LABS: BE (Venous) -5 mmol/L (-2-3); HCO3 (Venous) 20 mmol/L (23-28); O2 Sat (Venous) 83 %; TCO2 (Venous) 19 mmol/L (24-29); pCO2 (Venous) 31 mmHg (41-51); pH (Venous) 7.42 (7.31-7.41); pO2 (Venous) 48 mmHg
[2023-02-02] MEDS: cefTRIAXone 1 GM/50 ML BAG IVPB (10:14)
--- NOTE | 2023-02-02 10:59 | NUR.NOTE ---
Nursing Note: Report called to [facility] charge nurse. patient will be going to room 230 with nurse Walton
--- NOTE | 2023-02-02 11:07 | NUR.NOTE ---
Nursing Note: Patient taken to [facility] unit by plating technician. All belongings sent with patient.
--- NOTE | 2023-02-02 11:32 | W.PM.HP.N ---
Date of service: 02/02/23 Time of Service: 11:33 Assessment and Plan Assessment and plan (1) Right lower lobe pneumonia: Status: Acute Assessment and plan: given doxycycline/ceftriaxone in ED, will broaden to zosyn to cover for possible aspiration wean oxygen as able scheduled duonebs, albuterol prn acapella mucinex (2) Hypoxia: Status: Acute Assessment and plan: in setting of acute pneumonia with possible copd exacerbation wean oxygen as able respiratory consult (3) Type 2 diabetes mellitus with diabetic neuropathy, unspecified: Status: Acute Assessment and plan: A1C 6.7 in November of 2022 diabetic diet sliding scale AC with coverage as needed. continue home oral agents. (4) COPD (chronic obstructive pulmonary disease): Status: Chronic Assessment and plan: given dexamethasone in the ED scheduled duonebs. (5) Chronic kidney disease: Status: Chronic Assessment and plan: creatinine stable and at baseline. 1.6 avoid nephrotoxic drugs and renal dose as needed. (6) BPH w urinary obs/LUTS: Status: Acute (7) Discharge planning issues: Status: Acute Assessment and plan: enoxaparin for DVT prophylaxis anticipate discharge to home with no new services once medically stable. discussed with Dr Jackson History of Present Illness History of Present Illness Chief Complaint: shortness of breath Narrative: work up shows right lower lobe pneumonia given doxy and ceftriaxone, dexamethasone admit for ongoing oxygen requirements he is hemodynamically stable with no signs of sepsis Review of Systems All systems reviewed & are unremarkable except as noted in HPI and below PFSH All Active Problems (Updated 02/02/23 @ 11:43 by Dagmar Pruett NP) Discharge planning issues (Acute) BPH w urinary obs/LUTS (Acute 01/30/16) Right lower lobe pneumonia (Acute) Hypoxia (Acute) Ambulatory dysfunction (Acute) Diarrhea (Acute) Anemia (Chronic) Chronic mild anemia presumed in part secondary to chronic kidney disease History of smoking (Acute) Quit 23 years ago. Neurogenic bladder (Acute ~12/27/18) Type 2 diabetes mellitus with diabetic neuropathy, unspecified (Acute) COPD (chronic obstructive pulmonary disease) (Chronic) CAD (coronary artery disease) (Chronic) Actinic keratoses (Acute) Chronic low back pain (Acute) Chronic kidney disease (Chronic) 11/2021, stage 3 , Cr, 1.8 Bilateral carpal tunnel syndrome (Acute) Brachial neuritis (Acute) Cervical spondylosis with radiculopathy (Acute) Rosacea (Acute) GERD (gastroesophageal reflux disease) (Chronic) Barretts esophagus (Acute) PVD (peripheral vascular disease) (Chronic ~12/09/20) Body mass index exceeds 30 (Acute) Gout (Chronic) Hyperlipidemia (Acute) Squamous cell carcinoma of skin (Acute) left hand Acute cholecystitis due to biliary calculus (Acute) 06/2021- tx at [facility] Urinary retention (Acute 08/30/17) Medical History BPH w urinary obs/LUTS (01/30/16) Diabetes 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) HTN (hypertension) UTI (urinary tract infection) Surgical History History of appendectomy (~07/18/1958) History of back surgery History of cholecystectomy (~07/21/21) History of endoscopy (~05/24/17) w/ biopsy- 03/21/18, 09/19/18, 03/27/19, 04/22/20 History of esophagogastroduodenoscopy (EGD) (~04/22/20) History of foot surgery (~07/18/08) right foot History of hip surgery History of incision and drainage (~07/18/90) perianal abscess- w/ internal sphincterotomy History of shoulder surgery (~07/18/74) History of surgical removal of pilonidal cyst Family History Mother Alcohol use disorder Father , 76 Cancer Sister Alcohol use disorder Social History Smoking/Tobacco Use Status: Former Tobacco Use tobacco type: cigarettes Quit Date: 07/18/00 Tobacco: How many years used: 35 Second Hand Exposure: Yes Smoking risk assessment performed?: Yes Alcohol Intake: former Drug use: Never Substance use type: does not use Caregiver/Support person: Yes Household members: significant other Housing: other Communication Needs: None Do you need help understanding health information?: Rarely Pets and animals: No Sexually active: No Do you think of yourself as: straight/heterosexual Current gender identity: male What is your relationship status?: living with partner How often do you talk on the phone with friends or family?: three or more times per week How often do you get together with friends or relatives?: twice per week How often do you attend adventist or latter day services?: decline to answer Do you belong to any clubs or organized social groups?: yes Panel score (0-1 are the most socially isolated patients): 3 What type of physical activity do you participate in: walking Duration: 60-90 minutes/day Frequency: 5-6 times per week Keshia/Rastafari: Judaism Special keshia needs: No Seatbelt use: always Drive intox or ride w/intox delivery truck driver: No Do you feel safe at home: Yes Do you feel safe in your relationship?: Yes Meds Allergies and Home Medications Allergies Allergy/AdvReac Type Severity Reaction Status Date / Time No Known Allergies Allergy Verified 02/02/23 08:12 Home Medications Medication Instructions Recorded Confirmed Type diltiazem HCl 120 mg 120 mg PO DAILY 06/24/21 02/02/23 History capsule,extended release 24 hr (Cartia XT) duloxetine 60 mg capsule,delayed 60 mg PO BID 06/24/21 02/02/23 History release furosemide 20 mg tablet 20 mg PO DAILY 06/24/21 02/02/23 History ammonium lactate 12 % topical cream 1 applic topical DAILY 06/29/21 02/02/23 History multivitamin (Daily Multi-Vitamin 1 tab PO DAILY 06/29/21 02/02/23 History tablet) albuterol sulfate 90 mcg/actuation 2 puff inhalation Q4H PRN 01/20/22 02/02/23 Rx aerosol inhaler shortness of breath or wheezing #8.5 grams lactobacillus combination no.9 4 4,000 mmu cells PO DAILY 03/16/22 12/16/22 History billion cell capsule (Adult 50 Plus Probiotic) trazodone 50 mg tablet 50 mg PO QHS PRN sleep #90 tabs 04/30/22 02/02/23 Rx atorvastatin 80 mg tablet 80 mg PO DAILY #90 tabs 06/30/22 02/02/23 Rx glimepiride 1 mg tablet 2 mg PO BID #360 tabs 06/30/22 02/02/23 Rx metformin 1,000 mg tablet 1,000 mg PO BID #180 tab-caps 06/30/22 02/02/23 Rx blood sugar diagnostic (OneTouch #100 ea 08/09/22 12/16/22 Rx Ultra Test strips) gabapentin 600 mg tablet 1,200 mg PO BID #360 tabs 12/16/22 02/02/23 Rx losartan 25 mg tablet 12.5 mg PO DAILY #45 tabs 12/16/22 02/02/23 Rx omeprazole 40 mg capsule,delayed 40 mg PO BID #180 tab-caps 12/16/22 02/02/23 Rx release varicella-zoster glycoE [id number] 0.5 ml IM ONCE #1 ea 12/16/22 12/16/22 Rx adj(PF) 50 mcg/0.5 mL IM susp, kit (Shingrix (PF)) aspirin 81 mg tablet,delayed 81 mg PO DAILY 02/02/23 02/02/23 History release Exam Const General: cooperative, comfortable and no acute distress Nutritional Appearance: average body habitus Orientation: alert, awake and oriented x3 HENMT Head: normal to inspection, normocephalic and atraumatic Face and sinus: normal facial exam Mouth: oral mucosae normal Chest Chest: normal inspection of the chest Resp Effort & Inspection: cough and labored Auscultation: rhonchi right lower and no wheezes Cardio Rate: regular rate Rhythm: regular rhythm GI Inspection: normal to inspection Palpation: soft Auscultation: normal bowel sounds Neuro General: patient alert, patient awake, patient oriented x3 and no focal motor deficits Extrem General: normal to inspection, full ROM and no pedal edema Results Labs 02/02/23 08:25 02/02/23 08:25 Labs: Laboratory Results - last 24 hr 02/02/23 02/02/23 02/02/23 08:25 08:25 08:25 WBC 11.77 H RBC 4.20 L Hgb 10.2 L Hct 32.0 L MCV 76 L MCH 24.3 L MCHC 31.9 L RDW 17.4 H Plt Count 278 MPV 9.3 Immature Gran % 0.7 Neutrophils % 71.5 Lymphocytes % 10.3 Monocytes % 16.2 Eosinophils % 0.9 Basophils % 0.4 Nucleated RBC % 0.0 Absolute Neutrophils 8.42 H Absolute Lymphocytes 1.21 Absolute Monocytes 1.91 H Absolute Eosinophils 0.11 Absolute Basophils 0.05 RBC Morphology See Below Basophilic Stippling Present PT INR APTT VBG pH VBG pCO2 VBG pO2 VBG HCO3 VBG Total CO2 VBG O2 Saturation VBG Base Excess Sodium 137 Potassium 4.0 Chloride 103 Carbon Dioxide 24.3 Anion Gap 9.7 BUN 24 H Creatinine 1.6 H Est GFR (CKD-EPI 2020) 45.21 Glucose 200 H Calcium 8.9 Total Bilirubin 0.6 AST 47 H ALT 31 Alkaline Phosphatase 109 Troponin I < 50 Total Protein 7.8 Albumin 2.8 L COVID-19 Source Nasopharynx SARS-CoV-2 (PCR) Negative Influenza Type A (PCR) Negative Influenza Type B (PCR) Negative RSV (PCR) Negative 02/02/23 02/02/23 02/02/23 08:25 08:25 10:00 WBC RBC Hgb Hct MCV MCH MCHC RDW Plt Count MPV Immature Gran % Neutrophils % Lymphocytes % Monocytes % Eosinophils % Basophils % Nucleated RBC % Absolute Neutrophils Absolute Lymphocytes Absolute Monocytes Absolute Eosinophils Absolute Basophils RBC Morphology Basophilic Stippling PT 10.6 INR 1.0 APTT 37.0 H VBG pH 7.42 H VBG pCO2 31 L VBG pO2 48 VBG HCO3 20 L VBG Total CO2 19 L VBG O2 Saturation 83 VBG Base Excess -5 L Sodium Potassium Chloride Carbon Dioxide Anion Gap BUN Creatinine Est GFR (CKD-EPI 2020) Glucose Calcium Total Bilirubin AST ALT Alkaline Phosphatase Troponin I Cancelled Total Protein Albumin COVID-19 Source SARS-CoV-2 (PCR) Influenza Type A (PCR) Influenza Type B (PCR) RSV (PCR) Last Vital Signs Temp 37.6 C H 02/02/23 11:19 Pulse 85 02/02/23 11:19 Resp 20 02/02/23 11:19 BP 119/69 02/02/23 11:19 Pulse Ox 92 02/02/23 11:19 Time Spent Time spent with Patient: 40-54 minutes Time was spent: preparing to see the patient(eg.review tests), obtaining and/or reviewing separately otained hiistory, ordering medications,tests, procedures, referring, communicating with other health primary care provider, indepentently interpreting results, counseling the patient and care coordination
[2023-02-02 11:50] LABS: Troponin I < 50 ng/L (<or=60)
[2023-02-02 12:57] LABS: Lab Add On Test DONE
[2023-02-02 13:25] LABS: NT-proBNP 482 pg/mL (<300)
--- NOTE | 2023-02-02 16:24 | RESPIRATORY ---
RT Assessment Start: 02/02/23 15:37 Freq: .q shift and prn Status: Active Protocol: Document 02/02/23 16:18 RT.CARE (Rec: 02/02/23 16:24 RT.CARE [id number]) RT Assessment Smoking History Smoking/Tobacco Use Status Former Tobacco Use Tobacco: How many years used 35 Tobacco Type cigarettes Packs per Day 2 Cigarettes per Day 40 Years smoked 35 OXYGEN HISTORY: Supplemental O2 At Rest 0 With Exertion 0 CPAP Can use home machine na BIPAP Can you home machine na Trilogy/AVAPS Can use home machine na DME/Compliance DME na Current Respiratory Symptoms Current Respiratory Symptoms Cough,Shortness of breath, Sputum production Activity Activity Level maintains active lifestyle walking 3 miles a day and plays golf regularly Respiratory Breath Sounds Breath Sounds Any abnormal sounds, decreased breath sounds Response Mild response,subjective improvement Pulse Rate <100 Respiratory Rate 18-25 Shortness of Breath At rest Respiratory Therapy Score Total 5 Assessment and Plan RT Treatment Protocol Bronchodilator Aerosol Therapy Protocol,Bronchial Hygiene Therapy Protocol Note pt has rescue inhaler but hasnt used it in over a year.
[2023-02-02] MEDS: PIPERACILLIN/TAZO 3.375 GM in Normal Saline 50 ML IVPB ×2 (16:31→22:06)
[2023-02-02] MEDS: Benzocaine/Menthol LOZG 15/BOX 1 EACH SUC (16:31)
[2023-02-02] MEDS: Acetaminophen 325 MG TAB 650 MG PO ×2 (16:32→20:09)
[2023-02-02] MEDS: metFORMIN 500 MG TAB PO (16:32)
[2023-02-02] MEDS: Normal Saline Flush 10 ML SYR IVP (16:33)
[2023-02-02 16:42] LABS: Procalcitonin 1.8 ng/mL
--- NOTE | 2023-02-02 16:42 | PHA.REVIEW2 ---
Pharmacy Admission Review - Admission Clinical Review (Last Reviewed 02/02/23 @ 08:26 by Karla Sandhu NP) Discharge planning issues (Acute) BPH w urinary obs/LUTS (Acute 01/30/16) Right lower lobe pneumonia (Acute) Hypoxia (Acute) Type 2 diabetes mellitus with diabetic neuropathy, unspecified (Acute) No Known Allergies Allergy (Verified 02/02/23 08:12) Resuscitation Status DNI Height 5 ft 7 in Weight 95.1 kg - Renal Dosing Renal Dosing: BUN 24 mg/dL (7-18) H 02/02/23 08:25 Creatinine 1.6 mg/dL (0.70-1.30) H 02/02/23 08:25 Medications needing adjustments: Reviewed (eCrCl 45 ml/min, all orders ok) - Anticoagulation Anticoagulation: Hgb 10.2 g/dL (13.5-17.5) L 02/02/23 08:25 Hct 32.0 % (40.0-50.0) L 02/02/23 08:25 Plt Count 278 10^3/uL (130-400) 02/02/23 08:25 INR 1.0 (0.9-1.1) 02/02/23 08:25 Creatinine 1.6 mg/dL (0.70-1.30) H 02/02/23 08:25 - Relevant Labs Sodium 137 mmol/L (136-145) 02/02/23 08:25 Potassium 4.0 mmol/L (3.5-5.1) 02/02/23 08:25 Chloride 103 mmol/L (98-107) 02/02/23 08:25 - DM Control DM Control: Glucose 200 mg/dL (74-106) H 02/02/23 08:25 - Cardiac Review Cardiac Review: Troponin I < 50 ng/L (<or=60) 02/02/23 11:30 NT-Pro-B Natriuret Pep 482 pg/mL (<300) H 02/02/23 08:25
[2023-02-02] MEDS: Insulin Aspart 300 UNITS/3 ML PEN SC (17:38)
[2023-02-02] MEDS: DULoxetine 30 MG CAP 60 MG PO (20:09)
[2023-02-02] MEDS: Glimepiride 1 MG TAB 2 MG PO (20:09)
[2023-02-02] MEDS: Gabapentin 600 MG TAB 1200 MG PO (20:09)
[2023-02-02] MEDS: Omeprazole 20 MG CAPCR 40 MG PO (20:10)
[2023-02-03] MEDS: PIPERACILLIN/TAZO 3.375 GM in Normal Saline 50 ML IVPB ×2 (03:49→10:07)
[2023-02-03 06:45] LABS: Abs Immature Grans 0.14 10^3/uL (0.0-0.06); Absolute Monocyte Count 1.01 10^3/uL (0.1-0.8); Basophils % 0.3; HCT 31.4 % (40.0-50.0); HGB 9.8 g/dL (13.5-17.5); Lymphocytes % 7.2; MCH 23.7 pg (27.0-33.0); MCHC 31.2 % (32.0-36.0); MCV 76 fL (80-95); MPV 9.6 fL (8.0-11.0); Monocytes % 6.9; Neutrophils % 84.6; Platelet Count 300 10^3/uL (130-400); RBC 4.13 10^6/uL (4.36-5.78); RDW 17.5 % (11.8-14.1); RDW-SD 48.4 fL; WBC 14.67 10^3/uL (4.4-10.8)
[2023-02-03 07:04] LABS: Absolute Basophil Count 0.04 10^3/uL (0.0-0.2); Absolute Lymphocyte Count 1.06 10^3/uL (1.2-3.4); Absolute Neutrophil Count 12.41 10^3/uL (1.2-6.7)
[2023-02-03 07:06] VITALS: BP 130/68; PULSE 60; RESP 16; TEMP 36.5; O2SAT 95
[2023-02-03 07:12] LABS: Anion Gap 11.8 mmol/L (3-11); BUN 33 mg/dL (7-18); CO2 22.2 mmol/L (21.0-32.0); CREATININE 1.6 mg/dL (0.70-1.30); Calcium 9.2 mg/dL (8.5-10.1); Chloride 105 mmol/L (98-107); Estimated GFR 45.21 (mL/min/1.73m2); Glucose 219 mg/dL (74-106); Sodium 139 mmol/L (136-145)
[2023-02-03] MEDS: Acetaminophen 325 MG TAB 650 MG PO ×2 (07:59→12:14)
[2023-02-03] MEDS: Aspirin E.C. 81 MG TABEC PO (07:59)
[2023-02-03] MEDS: Atorvastatin 40 MG TAB 80 MG PO (07:59)
[2023-02-03] MEDS: DULoxetine 30 MG CAP 60 MG PO (08:01)
[2023-02-03] MEDS: dilTIAZem CD 120 MG CAPCR PO (08:01)
[2023-02-03] MEDS: Furosemide 20 MG TAB PO (08:02)
[2023-02-03] MEDS: Glimepiride 1 MG TAB 2 MG PO (08:02)
[2023-02-03] MEDS: Gabapentin 600 MG TAB 1200 MG PO (08:02)
[2023-02-03] MEDS: Insulin Aspart 300 UNITS/3 ML PEN SC ×2 (08:03→12:14)
[2023-02-03] MEDS: Multivitamin TAB 1 TAB PO (08:04)
[2023-02-03] MEDS: metFORMIN 500 MG TAB PO (08:04)
[2023-02-03] MEDS: Lactobacillus Acidophilus CAP 1 CAP PO (08:04)
[2023-02-03] MEDS: Omeprazole 20 MG CAPCR 40 MG PO (08:04)
[2023-02-03] MEDS: Normal Saline Flush 10 ML SYR IVP (08:05)
[2023-02-03 08:39] VITALS: PULSE 78; RESP 18; RESP 3; O2SAT 92
[2023-02-03] MEDS: Albuterol/Ipratropium 3 ML UPD VIAL UPD ×2 (08:39→11:47)
[2023-02-03 08:43] VITALS: PULSE 78; RESP 18; RESP 3; O2SAT 92
--- NOTE | 2023-02-03 10:27 | PDOC.CMIN ---
Date of service: 02/03/23 Time of Service: 10:27 Care Management Initial Assmt Initial Assessment REASON FOR HOSPITALIZATION:: Right lower lobe pneumonia PFSH All Active Problems (Updated 02/02/23 @ 11:43 by Dagmar Pruett NP) Discharge planning issues (Acute) BPH w urinary obs/LUTS (Acute 01/30/16) Right lower lobe pneumonia (Acute) Hypoxia (Acute) Ambulatory dysfunction (Acute) Diarrhea (Acute) Anemia (Chronic) Chronic mild anemia presumed in part secondary to chronic kidney disease History of smoking (Acute) Quit 23 years ago. Neurogenic bladder (Acute ~12/27/18) Type 2 diabetes mellitus with diabetic neuropathy, unspecified (Acute) COPD (chronic obstructive pulmonary disease) (Chronic) CAD (coronary artery disease) (Chronic) Actinic keratoses (Acute) Chronic low back pain (Acute) Chronic kidney disease (Chronic) 11/2021, stage 3 , Cr, 1.8 Bilateral carpal tunnel syndrome (Acute) Brachial neuritis (Acute) Cervical spondylosis with radiculopathy (Acute) Rosacea (Acute) GERD (gastroesophageal reflux disease) (Chronic) Barretts esophagus (Acute) PVD (peripheral vascular disease) (Chronic ~12/09/20) Body mass index exceeds 30 (Acute) Gout (Chronic) Hyperlipidemia (Acute) Squamous cell carcinoma of skin (Acute) left hand Acute cholecystitis due to biliary calculus (Acute) 06/2021- tx at [facility] Urinary retention (Acute 08/30/17) Medical History BPH w urinary obs/LUTS (01/30/16) Diabetes 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) HTN (hypertension) UTI (urinary tract infection) Surgical History History of appendectomy (~07/18/1958) History of back surgery History of cholecystectomy (~07/21/21) History of endoscopy (~05/24/17) w/ biopsy- 03/21/18, 09/19/18, 03/27/19, 04/22/20 History of esophagogastroduodenoscopy (EGD) (~04/22/20) History of foot surgery (~07/18/08) right foot History of hip surgery History of incision and drainage (~07/18/90) perianal abscess- w/ internal sphincterotomy History of shoulder surgery (~07/18/74) History of surgical removal of pilonidal cyst Family History Mother Alcohol use disorder Father , 76 Cancer Sister Alcohol use disorder Social History Smoking/Tobacco Use Status: Former Tobacco Use tobacco type: cigarettes Quit Date: 07/18/00 Tobacco: How many years used: 35 Second Hand Exposure: Yes Smoking risk assessment performed?: Yes Alcohol Intake: former Drug use: Never Substance use type: does not use Caregiver/Support person: Yes Household members: significant other Housing: other Communication Needs: None Do you need help understanding health information?: Rarely Pets and animals: No Sexually active: No Do you think of yourself as: straight/heterosexual Current gender identity: male What is your relationship status?: living with partner How often do you talk on the phone with friends or family?: three or more times per week How often do you get together with friends or relatives?: twice per week How often do you attend jain or adventism services?: decline to answer Do you belong to any clubs or organized social groups?: yes Panel score (0-1 are the most socially isolated patients): 3 What type of physical activity do you participate in: walking Duration: 60-90 minutes/day Frequency: 5-6 times per week Keshia/Evangelical: [employer] Special keshia needs: No Seatbelt use: always Drive intox or ride w/intox inventory associate and driver: No Do you feel safe at home: Yes Do you feel safe in your relationship?: Yes
[2023-02-03 11:13] VITALS: O2SAT 92
[2023-02-03 11:47] VITALS: PULSE 72; RESP 18; RESP 3; O2SAT 92
[2023-02-03 11:49] VITALS: PULSE 78; RESP 18; RESP 3; O2SAT 92
--- NOTE | 2023-02-03 12:25 | W.PM.DS.N ---
Date of service: 02/03/23 Time of Service: 12:25 DS: Diagnosis Discharge Diagnosis (1) Right lower lobe pneumonia: Status: Acute (2) Hypoxia: Status: Acute (3) Type 2 diabetes mellitus with diabetic neuropathy, unspecified: Status: Acute (4) COPD (chronic obstructive pulmonary disease): Status: Chronic (5) Chronic kidney disease: Status: Chronic (6) BPH w urinary obs/LUTS: Status: Acute Discharge Plan Disposition Patient Disposition: Home Condition: Improving Discharge Details Reason For Visit: Right Lower Lobe Pneumonia Admit Date/Time: 02/02/23 09:58 Admit Provider: Darcy Jackson Attending Provider: Darcy Jackson Primary Care Provider: Vega Scherer Hospital Course Hospital Course: This is a 74-year-old male patient history of coronary artery disease type 2 diabetes COPD tobacco use who presents to the emergency department with several day history of cough and sore throat he states he was febrile. He has been using acetaminophen for symptoms. Work-up in the emergency department does show right lower lobe pneumonia. He was given doxycycline and ceftriaxone but did get admitted on Zosyn to cover for possible aspiration. He was admitted secondary to oxygen requirements. Overnight he was weaned off. Hemodynamically he has been stable. He is eating and drinking he has been ambulating independently in his room stating he feels ready for discharge to home. He will be down stepped to Augmentin to complete his course. Also throat was swabbed for complaints of sore throat which was negative for strep and his FLUVID swab was negative for COVID influenza or RSV Discharge discussed with Dr. Jackson Home Meds and New Rx's Prescriptions: New amoxicillin-pot clavulanate 875-125 mg tablet 1 tab PO BID Qty: 13 0RF guaifenesin [Mucinex] 600 mg tablet extended release 12hr 600 mg PO BID Qty: 13 0RF Continued losartan 25 mg tablet 12.5 mg PO DAILY Qty: 45 3RF gabapentin 600 mg tablet 1,200 mg PO BID Qty: 360 3RF omeprazole 40 mg capsule,delayed release(DR/EC) 40 mg PO BID Qty: 180 3RF Shingrix (PF) 50 mcg/0.5 mL suspension for reconstitution 0.5 ml IM ONCE Qty: 1 0RF Rx Instructions: as a single dose albuterol sulfate 90 mcg/actuation HFA aerosol inhaler 2 puff inhalation Q4H PRN (Reason: shortness of breath or wheezing) Qty: 8.5 11RF Adult 50 Plus Probiotic 4 billion cell capsule 4,000 mmu cells PO DAILY Rx Instructions: administer with a meal multivitamin [Daily Multi-Vitamin] Tablet 1 tab PO DAILY ammonium lactate 12 % cream 1 applic topical DAILY trazodone 50 mg tablet 50 mg PO QHS PRN (Reason: sleep) Qty: 90 3RF atorvastatin 80 mg tablet 80 mg PO DAILY Qty: 90 3RF glimepiride 1 mg tablet 2 mg PO BID Qty: 360 3RF metformin 1,000 mg tablet 1,000 mg PO BID Qty: 180 3RF (DME) OneTouch Ultra Test Strip See Rx Instructions .Route Qty: 100 3RF Rx Instructions: Daily diltiazem HCl [Cartia XT] 120 mg capsule,extended release 24hr 120 mg PO DAILY furosemide 20 mg tablet 20 mg PO DAILY duloxetine 60 mg capsule,delayed release(DR/EC) 60 mg PO BID aspirin 81 mg Tablet,Delayed Release (Dr/Ec) 81 mg PO DAILY Discharge Instructions Instructions: Pneumonia (DC) Additional Instructions: continue antibiotics as directed even if you feel better. continue breathing exercises with acapella and incentive spirometry as directed Referrals: Vega Scherer, [employer] [Primary Care Provider] - Activity:: Activity as Tolerated Equipment/Supplies:: No Equipment Needed Diet:: As Tolerated Discharge Orders Discharge Orders: Discharge Order (Routine); Ordered 02/03/23 Ordered By: Dagmar Pruett DS: Summary Time Spent with Patient providing and/or coordinating discharge services: Less than 30 minutes Status at Discharge Functional status at discharge: independent ambulation Overall status at discharge: patient is progressing back to baseline Mental Status: mental status grossly normal Speech and Movement: speech and movement normal Mood: congruent mood Affect: normal affect Exam Const General: cooperative, comfortable and no acute distress Nutritional Appearance: average body habitus Orientation: alert, awake and oriented x3 HENMT Head: normal to inspection, normocephalic and atraumatic Face and sinus: normal facial exam Mouth: oral mucosae normal Chest Chest: normal inspection of the chest Resp Effort & Inspection: cough and labored Auscultation: rhonchi right lower and no wheezes Cardio Rate: regular rate Rhythm: regular rhythm GI Inspection: normal to inspection Palpation: soft Auscultation: normal bowel sounds Neuro General: patient alert, patient awake, patient oriented x3 and no focal motor deficits Extrem General: normal to inspection, full ROM and no pedal edema Psych Mental Status: mental status grossly normal Speech and Movement: speech and movement normal Mood: congruent mood Affect: normal affect DS: Data Vitals/I&O Vitals and I&O: Vital Signs Temperature 36.5 C 02/03/23 07:06 Temperature Source Tympanic 02/03/23 07:06 Pulse 78 02/03/23 11:49 Pulse Rhythm Regular 02/03/23 08:00 Pulse 86 02/02/23 09:40 Respiratory Rate 18 02/03/23 11:49 Respiratory Effort Normal 02/03/23 08:00 Respiratory Depth Normal 02/03/23 08:00 Respiratory Pattern Normal 02/03/23 08:00 Blood Pressure 130/68 02/03/23 07:06 Blood Pressure Mean 73 02/02/23 09:38 Blood Pressure Position Sitting 02/02/23 08:03 Pulse Oximetry 92 02/03/23 11:49 Oxygen Delivery Method Room Air 02/03/23 11:47 Oxygen Flow Rate 0 02/03/23 11:47 Pain Level 0 02/03/23 07:06 Intake & Output 02/02/23 02/03/23 02/03/23 23:59 11:59 23:59 Intake Total 400 / 550 930 / 930 Output Total 350 / 350 200 / 200 Balance 50 / 200 730 / 730 Intake: IV 100 / 250 50 / 50 Oral 300 / 300 880 / 880 Output: Urine 350 / 350 200 / 200 Other: Urine Color Pale Urine Appearance Clear Clear Urine Odor None Comment unmeasured, pt spilled urine Stool Size Moderate Stool Characteristics Formed Voiding Methods Self-Catheterization Self-Catheterization Data Completed and Pending Labs on day of discharge: Labs from last 24 hours 02/03/23 02/03/23 02/02/23 06:03 06:03 18:58 WBC 14.67 H RBC 4.13 L Hgb 9.8 L Hct 31.4 L MCV 76 L MCH 23.7 L MCHC 31.2 L RDW 17.5 H Plt Count 300 MPV 9.6 Immature Gran % 1.0 Neutrophils % 84.6 Lymphocytes % 7.2 Monocytes % 6.9 Eosinophils % 0.0 Basophils % 0.3 Nucleated RBC % 0.0 Absolute Neutrophils 12.41 H Absolute Lymphocytes 1.06 L Absolute Monocytes 1.01 H Absolute Eosinophils 0.00 Absolute Basophils 0.04 Sodium 139 Potassium 4.0 Chloride 105 Carbon Dioxide 22.2 Anion Gap 11.8 H BUN 33 H Creatinine 1.6 H Est GFR (CKD-EPI 2020) 45.21 Glucose 219 H Calcium 9.2 NT-Pro-B Natriuret Pep Procalcitonin Urine Legionella Ag Pending Ur Strep pneumoniae Ag Pending Add-On Test Request 02/02/23 02/02/23 02/02/23 10:00 08:25 08:25 WBC RBC Hgb Hct MCV MCH MCHC RDW Plt Count MPV Immature Gran % Neutrophils % Lymphocytes % Monocytes % Eosinophils % Basophils % Nucleated RBC % Absolute Neutrophils Absolute Lymphocytes Absolute Monocytes Absolute Eosinophils Absolute Basophils Sodium Potassium Chloride Carbon Dioxide Anion Gap BUN Creatinine Est GFR (CKD-EPI 2020) Glucose Calcium NT-Pro-B Natriuret Pep 482 H Procalcitonin 1.8 Urine Legionella Ag Ur Strep pneumoniae Ag Add-On Test Request DONE 02/02/23 17:50 Sputum Sputum Culture - Pending 02/02/23 08:31 Tonsil - Not Specified Group A Streptococcus Culture - Pending Preliminary micro results at discharge 02/02/23 09:00 Blood Culture - Preliminary Blood NO GROWTH 24 HOURS 02/02/23 08:25 Blood Culture - Preliminary Blood NO GROWTH 24 HOURS 02/02/23 17:50 Sputum Culture - Pending Sputum 02/02/23 08:31 Group A Streptococcus Culture - Pending Tonsil - Not Specified PFSH All Active Problems (Updated 02/02/23 @ 11:43 by Dagmar Pruett NP) Discharge planning issues (Acute) BPH w urinary obs/LUTS (Acute 01/30/16) Right lower lobe pneumonia (Acute) Hypoxia (Acute) Ambulatory dysfunction (Acute) Diarrhea (Acute) Anemia (Chronic) Chronic mild anemia presumed in part secondary to chronic kidney disease History of smoking (Acute) Quit 23 years ago. Neurogenic bladder (Acute ~12/27/18) Type 2 diabetes mellitus with diabetic neuropathy, unspecified (Acute) COPD (chronic obstructive pulmonary disease) (Chronic) CAD (coronary artery disease) (Chronic) Actinic keratoses (Acute) Chronic low back pain (Acute) Chronic kidney disease (Chronic) 11/2021, stage 3 , Cr, 1.8 Bilateral carpal tunnel syndrome (Acute) Brachial neuritis (Acute) Cervical spondylosis with radiculopathy (Acute) Rosacea (Acute) GERD (gastroesophageal reflux disease) (Chronic) Barretts esophagus (Acute) PVD (peripheral vascular disease) (Chronic ~12/09/20) Body mass index exceeds 30 (Acute) Gout (Chronic) Hyperlipidemia (Acute) Squamous cell carcinoma of skin (Acute) left hand Acute cholecystitis due to biliary calculus (Acute) 06/2021- tx at [facility] Urinary retention (Acute 08/30/17) Medical History BPH w urinary obs/LUTS (01/30/16) Diabetes 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) HTN (hypertension) UTI (urinary tract infection) Surgical History History of appendectomy (~07/18/1958) History of back surgery History of cholecystectomy (~07/21/21) History of endoscopy (~05/24/17) w/ biopsy- 03/21/18, 09/19/18, 03/27/19, 04/22/20 History of esophagogastroduodenoscopy (EGD) (~04/22/20) History of foot surgery (~07/18/08) right foot History of hip surgery History of incision and drainage (~07/18/90) perianal abscess- w/ internal sphincterotomy History of shoulder surgery (~07/18/74) History of surgical removal of pilonidal cyst Family History Mother Alcohol use disorder Father , 76 Cancer Sister Alcohol use disorder Social History Smoking/Tobacco Use Status: Former Tobacco Use tobacco type: cigarettes Quit Date: 07/18/00 Tobacco: How many years used: 35 Second Hand Exposure: Yes Smoking risk assessment performed?: Yes Alcohol Intake: former Drug use: Never Substance use type: does not use Caregiver/Support person: Yes Household members: significant other Housing: other Communication Needs: None Do you need help understanding health information?: Rarely Pets and animals: No Sexually active: No Do you think of yourself as: straight/heterosexual Current gender identity: male What is your relationship status?: living with partner How often do you talk on the phone with friends or family?: three or more times per week How often do you get together with friends or relatives?: twice per week How often do you attend restoration or scientologist services?: decline to answer Do you belong to any clubs or organized social groups?: yes Panel score (0-1 are the most socially isolated patients): 3 What type of physical activity do you participate in: walking Duration: 60-90 minutes/day Frequency: 5-6 times per week Keshia/Mosque: Mosque Special keshia needs: No Seatbelt use: always Drive intox or 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
--- NOTE | 2023-02-03 14:49 | CMPROGNOTE_ITS ---
Date of service: 02/03/23 Time of Service: 14:50 Care Management Progress Note Progress Note Text Progress Note Text: Gil was prepared for discharge when CM met with him. CM reviewed MARTÍNEZ form, after status change from IN to OBS. Gil reported having a good stay at [facility], he shared no concerns at this time. His daughter was at his bedside preparing to drive him home.
[2023-02-03 23:53] LABS: Legionella Ag Detection Urine Negative (Negative)
[2023-02-04 23:47] LABS: Streptococcus Pneumoniae Ag, U Negative (Negative)
== END 2023-02-03 14:00 | disposition home or self-care (01) ==
LOC: ER 10:20 → MS 12:58
PROVIDERS: Nurse Practitioner Acute Care; Admitting Provider Internal Medicine; Emergency Provider Registered Nurse Emergency; PCP Nurse Practitioner Family; Visit Provider Internal Medicine
DX: J18.9 Pneumonia, unspecified organism (principal); I44.7 Left bundle-branch block, unspecified; R05.1 Acute cough; E11.22 Type 2 diabetes mellitus with diabetic chronic kidney disease; J44.0 Chronic obstructive pulmonary disease with (acute) lower respiratory infection; I25.10 Atherosclerotic heart disease of native coronary artery without angina pectoris; N18.9 Chronic kidney disease, unspecified; K22.70 Barrett's esophagus without dysplasia; K21.9 Gastro-esophageal reflux disease without esophagitis; I73.9 Peripheral vascular disease, unspecified; M10.9 Gout, unspecified; E78.5 Hyperlipidemia, unspecified; R19.7 Diarrhea, unspecified; R09.02 Hypoxemia; N40.1 Benign prostatic hyperplasia with lower urinary tract symptoms; G89.29 Other chronic pain; M54.50 Low back pain, unspecified; E11.40 Type 2 diabetes mellitus with diabetic neuropathy, unspecified; N31.9 Neuromuscular dysfunction of bladder, unspecified; M47.22 Other spondylosis with radiculopathy, cervical region; D64.9 Anemia, unspecified; Z87.891 Personal history of nicotine dependence; R33.9 Retention of urine, unspecified; Z79.84 Long term (current) use of oral hypoglycemic drugs; Z79.82 Long term (current) use of aspirin
CPT/HCPCS: 36415; 80048; 80053; 82805; 84145; 87040; 87077; 87449; 87637; 93005; 96365; 96366; 99285; 71045; 83880; 84484; 85025; 85610; 85730; 87070; 87081; 87186; 87205; 87899; 93010; 94640; 94667; 94668; 94760; 99223; 99238; J0696; J1100; J2543; J7620

== ENCOUNTER 2023-02-07 09:34 | Emergency (ER) | payer MEDICARE, SELFPAY ==
[2023-02-07 09:37] VITALS: BP 158/89; PULSE 72; RESP 20; TEMP 36.3; O2SAT 93
--- NOTE | 2023-02-07 09:44 | W.ED.GENAD ---
Discharge Plan Disposition Patient Disposition: Home Condition: Stable Discharge Details Chief Complaint: Recheck Clinical Impression: Positive blood culture Primary Care Provider: Vega Scherer ED Provider: Adam Leo Home Meds and New Rx's Prescriptions: No Action losartan 25 mg tablet 12.5 mg PO DAILY Qty: 45 3RF gabapentin 600 mg tablet 1,200 mg PO BID Qty: 360 3RF omeprazole 40 mg capsule,delayed release(DR/EC) 40 mg PO BID Qty: 180 3RF Shingrix (PF) 50 mcg/0.5 mL suspension for reconstitution 0.5 ml IM ONCE Qty: 1 0RF Rx Instructions: as a single dose albuterol sulfate 90 mcg/actuation HFA aerosol inhaler 2 puff inhalation Q4H PRN (Reason: shortness of breath or wheezing) Qty: 8.5 11RF Adult 50 Plus Probiotic 4 billion cell capsule 4,000 mmu cells PO DAILY Rx Instructions: administer with a meal multivitamin [Daily Multi-Vitamin] Tablet 1 tab PO DAILY ammonium lactate 12 % cream 1 applic topical DAILY trazodone 50 mg tablet 50 mg PO QHS PRN (Reason: sleep) Qty: 90 3RF atorvastatin 80 mg tablet 80 mg PO DAILY Qty: 90 3RF glimepiride 1 mg tablet 2 mg PO BID Qty: 360 3RF metformin 1,000 mg tablet 1,000 mg PO BID Qty: 180 3RF (DME) OneTouch Ultra Test Strip See Rx Instructions .Route Qty: 100 3RF Rx Instructions: Daily diltiazem HCl [Cartia XT] 120 mg capsule,extended release 24hr 120 mg PO DAILY furosemide 20 mg tablet 20 mg PO DAILY duloxetine 60 mg capsule,delayed release(DR/EC) 60 mg PO BID aspirin 81 mg Tablet,Delayed Release (Dr/Ec) 81 mg PO DAILY amoxicillin-pot clavulanate 875-125 mg tablet 1 tab PO BID Qty: 13 0RF guaifenesin [Mucinex] 600 mg tablet extended release 12hr 600 mg PO BID Qty: 13 0RF Discharge Instructions Additional Instructions: Please follow-up with your primary care physician. Please return to the emergency department any worsening symptoms. Medical Decision Making 72-year-old male called back for positive anaerobic blood cultures growing gram-positive rods, recently treated for pneumonia is still finishing his course of antibiotics, no fevers no chills no shortness of breath patient is afebrile nontoxic normotensive no systemic signs of infection. Consider contaminated initial draw versus less likely active bacteremia. We will redraw labs and blood cultures. Patient be discharged home given strict return precautions for any signs of infection. 10 37 labs improved compared to most recent admission. Patient asymptomatic hemodynamically stable. HPI General Date/Time Provider Initiated Documentation: 02/07/23 09:35. HPI Narrative: 72-year-old male recent diagnosis of pneumonia, called back today for repeat blood cultures as he is blood culture anaerobic bottle grew out gram-positive rods from 02/02. Patient endorses feeling much better after starting his antibiotics. No fevers no chills no sweats. Related Data Home Medications Medication Instructions Recorded Confirmed diltiazem HCl 120 mg 120 mg PO DAILY 06/24/21 02/07/23 capsule,extended release 24 hr (Cartia XT) duloxetine 60 mg capsule,delayed 60 mg PO BID 06/24/21 02/07/23 release furosemide 20 mg tablet 20 mg PO DAILY 06/24/21 02/07/23 ammonium lactate 12 % topical cream 1 applic topical DAILY 06/29/21 02/07/23 multivitamin (Daily Multi-Vitamin 1 tab PO DAILY 06/29/21 02/07/23 tablet) albuterol sulfate 90 mcg/actuation 2 puff inhalation Q4H PRN 01/20/22 02/07/23 aerosol inhaler shortness of breath or wheezing #8.5 grams lactobacillus combination no.9 4 4,000 mmu cells PO DAILY 03/16/22 02/07/23 billion cell capsule (Adult 50 Plus Probiotic) trazodone 50 mg tablet 50 mg PO QHS PRN sleep #90 tabs 04/30/22 02/07/23 atorvastatin 80 mg tablet 80 mg PO DAILY #90 tabs 06/30/22 02/07/23 glimepiride 1 mg tablet 2 mg PO BID #360 tabs 06/30/22 02/07/23 metformin 1,000 mg tablet 1,000 mg PO BID #180 tab-caps 06/30/22 02/07/23 blood sugar diagnostic (OneTouch #100 ea 08/09/22 02/07/23 Ultra Test strips) gabapentin 600 mg tablet 1,200 mg PO BID #360 tabs 12/16/22 02/07/23 losartan 25 mg tablet 12.5 mg PO DAILY #45 tabs 12/16/22 02/07/23 omeprazole 40 mg capsule,delayed 40 mg PO BID #180 tab-caps 12/16/22 02/07/23 release varicella-zoster glycoE [id number] 0.5 ml IM ONCE #1 ea 12/16/22 02/07/23 adj(PF) 50 mcg/0.5 mL IM susp, kit (Shingrix (PF)) aspirin 81 mg tablet,delayed 81 mg PO DAILY 02/02/23 02/07/23 release amoxicillin 875 mg-potassium 1 tab PO BID #13 tabs 02/03/23 02/07/23 clavulanate 125 mg tablet guaifenesin 600 mg tablet, 600 mg PO BID #13 tabs 02/03/23 02/07/23 extended release 12 hr (Mucinex) Previous Rx's Medication Instructions Recorded albuterol sulfate 90 mcg/actuation 2 puff inhalation Q4H PRN 01/20/22 aerosol inhaler shortness of breath or wheezing #8.5 grams trazodone 50 mg tablet 50 mg PO QHS PRN sleep #90 tabs 04/30/22 atorvastatin 80 mg tablet 80 mg PO DAILY #90 tabs 06/30/22 glimepiride 1 mg tablet 2 mg PO BID #360 tabs 06/30/22 metformin 1,000 mg tablet 1,000 mg PO BID #180 tab-caps 06/30/22 blood sugar diagnostic (OneTouch #100 ea 08/09/22 Ultra Test strips) gabapentin 600 mg tablet 1,200 mg PO BID #360 tabs 12/16/22 losartan 25 mg tablet 12.5 mg PO DAILY #45 tabs 12/16/22 omeprazole 40 mg capsule,delayed 40 mg PO BID #180 tab-caps 12/16/22 release varicella-zoster glycoE vacc-[id number] 0.5 ml IM ONCE #1 ea 12/16/22 adj(PF) 50 mcg/0.5 mL IM susp, kit (Shingrix (PF)) amoxicillin 875 mg-potassium 1 tab PO BID #13 tabs 02/03/23 clavulanate 125 mg tablet guaifenesin 600 mg tablet, 600 mg PO BID #13 tabs 02/03/23 extended release 12 hr (Mucinex) Allergies Allergy/AdvReac Type Severity Reaction Status Date / Time No Known Allergies Allergy Verified 02/07/23 09:40 General Stated Complaint: Recheck MAXIMILIANO: 3 Review of Systems Narrative: Review of Systems Constitutional: negative Eyes: negative ENT: negative Cardiovascular: negative Respiratory: negative Gastrointestinal: negative : negative Musculoskeletal: negative Skin: negative Neurologic: negative Psych: negative PFSH All Active Problems (Updated 02/07/23 @ 10:38 by Adam Leo MD) Positive blood culture (Acute) Discharge planning issues (Acute) BPH w urinary obs/LUTS (Acute 01/30/16) Right lower lobe pneumonia (Acute) Hypoxia (Acute) Ambulatory dysfunction (Acute) Diarrhea (Acute) Anemia (Chronic) Chronic mild anemia presumed in part secondary to chronic kidney disease History of smoking (Acute) Quit 23 years ago. Neurogenic bladder (Acute ~12/27/18) Type 2 diabetes mellitus with diabetic neuropathy, unspecified (Acute) COPD (chronic obstructive pulmonary disease) (Chronic) CAD (coronary artery disease) (Chronic) Actinic keratoses (Acute) Chronic low back pain (Acute) Chronic kidney disease (Chronic) 11/2021, stage 3 , Cr, 1.8 Bilateral carpal tunnel syndrome (Acute) Brachial neuritis (Acute) Cervical spondylosis with radiculopathy (Acute) Rosacea (Acute) GERD (gastroesophageal reflux disease) (Chronic) Barretts esophagus (Acute) PVD (peripheral vascular disease) (Chronic ~12/09/20) Body mass index exceeds 30 (Acute) Gout (Chronic) Hyperlipidemia (Acute) Squamous cell carcinoma of skin (Acute) left hand Acute cholecystitis due to biliary calculus (Acute) 06/2021- tx at [facility] Urinary retention (Acute 08/30/17) Medical History BPH w urinary obs/LUTS (01/30/16) Diabetes 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) HTN (hypertension) UTI (urinary tract infection) Surgical History History of appendectomy (~07/18/1958) History of back surgery History of cholecystectomy (~07/21/21) History of endoscopy (~05/24/17) w/ biopsy- 03/21/18, 09/19/18, 03/27/19, 04/22/20 History of esophagogastroduodenoscopy (EGD) (~04/22/20) History of foot surgery (~07/18/08) right foot History of hip surgery History of incision and drainage (~07/18/90) perianal abscess- w/ internal sphincterotomy History of shoulder surgery (~07/18/74) History of surgical removal of pilonidal cyst Family History Mother Alcohol use disorder Father , 76 Cancer Sister Alcohol use disorder Social History Smoking/Tobacco Use Status: Former Tobacco Use tobacco type: cigarettes Quit Date: 07/18/00 Tobacco: How many years used: 35 Second Hand Exposure: Yes Smoking risk assessment performed?: Yes Alcohol Intake: former Drug use: Never Substance use type: does not use Caregiver/Support person: Yes Household members: significant other Housing: house Communication Needs: None Do you need help understanding health information?: Rarely Pets and animals: No Sexually active: No Do you think of yourself as: straight/heterosexual Current gender identity: male What is your relationship status?: living with partner How often do you talk on the phone with friends or family?: three or more times per week How often do you get together with friends or relatives?: twice per week How often do you attend catholic or scientologist services?: decline to answer Do you belong to any clubs or organized social groups?: yes Panel score (0-1 are the most socially isolated patients): 3 What type of physical activity do you participate in: walking Duration: 60-90 minutes/day Frequency: 5-6 times per week Keshia/Shinto: Tenriism Special keshia needs: No Seatbelt use: always 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 Exam Narrative Exam Narrative: Physical Examination General: alert, awake, cooperative, resting comfortably, no acute distress HEENT: normocephalic, atraumatic; PERRL, EOM intact, conjunctiva normal; no nasal discharge; moist mucous membranes, oral and pharyngeal mucosa normal, tolerating secretions Neck: supple, trachea midline; full ROM Chest: normal to inspection Respiratory: normal respiratory effort, speaking in full sentences, clear to auscultation, no wheezing, rales or rhonchi Cardiac: regular rate, regular rhythm, S1S2 intact, no murmurs rubs or gallops GI: abdomen soft, non-tender, non-distended; no palpable mass or hepatosplenomegaly Skin: no lesions, rashes or trauma appreciated Neuro: AAOx3, normal speech, moving all extremities Psych: Appropriate mood and affect Course Vital Signs Vital signs: Vital Signs Temperature 36.3 C L 02/07/23 09:37 Pulse 72 02/07/23 09:37 Respiratory Rate 20 02/07/23 09:37 Blood Pressure 158/89 H 02/07/23 09:37 Pulse Oximetry 93 02/07/23 09:37 Temperature 36.3 C L 02/07/23 09:37 Temperature Source Oral 02/07/23 09:37 Pulse 72 02/07/23 09:37 Respiratory Rate 20 02/07/23 09:37 Respiratory Effort Normal, Non-Labored 02/07/23 09:40 Blood Pressure 158/89 H 02/07/23 09:37 Blood Pressure Position Sitting 02/07/23 09:37 Pulse Oximetry 93 02/07/23 09:37 Oxygen Delivery Method Room Air 02/07/23 09:37 Oxygen Flow Rate 0 02/07/23 09:37 Pain Level 0 02/07/23 09:37 Lab/Test Results Lab/Test Results: 02/07/23 09:35 Blood Blood Culture - Pending 02/07/23 09:35 Blood Blood Culture - Pending
[2023-02-07 10:10] LABS: Absolute Eosinophil Count 0.65 10^3/uL (0.0-0.7); Absolute Monocyte Count 0.84 10^3/uL (0.1-0.8); Basophils % 0.8; HCT 35.5 % (40.0-50.0); HGB 11.2 g/dL (13.5-17.5); Immature Grans % 4.6; Lymphocytes % 16.1; MCH 24.1 pg (27.0-33.0); MCHC 31.5 % (32.0-36.0); MCV 76 fL (80-95); MPV 8.9 fL (8.0-11.0); Monocytes % 6.4; Neutrophils % 67.1; Platelet Count 454 10^3/uL (130-400); RBC 4.65 10^6/uL (4.36-5.78); RDW 17.8 % (11.8-14.1); RDW-SD 48.5 fL; WBC 13.06 10^3/uL (4.4-10.8)
[2023-02-07 10:13] LABS: Absolute Neutrophil Count 8.76 10^3/uL (1.2-6.7)
[2023-02-07 10:24] LABS: ALT 35 U/L (16-63); AST 16 U/L (15-37); Albumin 2.7 g/dL (3.4-5.0); Alkaline Phosphatase 99 U/L (46-116); Anion Gap 12.1 mmol/L (3-11); BUN 27 mg/dL (7-18); Bilirubin, Total 0.3 mg/dL (0.2-1.0); CO2 21.9 mmol/L (21.0-32.0); CREATININE 1.5 mg/dL (0.70-1.30); Calcium 9.2 mg/dL (8.5-10.1); Chloride 107 mmol/L (98-107); Estimated GFR 48.85 (mL/min/1.73m2); Glucose 131 mg/dL (74-106); Potassium 4.7 mmol/L (3.5-5.1); Sodium 141 mmol/L (136-145); Total Protein 7.6 g/dL (6.4-8.2)
[2023-02-07 10:26] LABS: Diff Comment Diff Reviewed; RBC Morphology Normal
--- NOTE | 2023-02-07 11:27 | NUR.NOTE ---
Nursing Note: Lab called sputum culture has rare MRSA growing in sputum. Per Dr. Nelson the results were given to Dr. Harrison. Pt recently just discharged from them.
== END 2023-02-07 11:12 | disposition home or self-care (01) ==
LOC: ER 14:29
PROVIDERS: Emergency Provider Emergency Medicine; PCP Nurse Practitioner Family
DX: R78.81 Bacteremia (principal)
CPT/HCPCS: 80053; 87040; 99282; 85025; 99283

== ENCOUNTER 2023-03-07 10:58 | Outpatient (CLI) | payer MEDICARE, SELFPAY ==
[2023-03-07 12:21] LABS: Abs Immature Grans 0.04 10^3/uL (0.0-0.06); Absolute Basophil Count 0.09 10^3/uL (0.0-0.2); Absolute Eosinophil Count 0.62 10^3/uL (0.0-0.7); Absolute Lymphocyte Count 2.37 10^3/uL (1.2-3.4); Absolute Monocyte Count 0.67 10^3/uL (0.1-0.8); Absolute Neutrophil Count 5.26 10^3/uL (1.2-6.7); Eosinophils % 6.9; HCT 39.3 % (40.0-50.0); HGB 11.9 g/dL (13.5-17.5); Immature Grans % 0.4; Lymphocytes % 26.2; MCH 23.3 pg (27.0-33.0); MCHC 30.3 % (32.0-36.0); MCV 77 fL (80-95); MPV 9.3 fL (8.0-11.0); Monocytes % 7.4; Neutrophils % 58.1; Platelet Count 283 10^3/uL (130-400); RBC 5.11 10^6/uL (4.36-5.78); RDW 18.2 % (11.8-14.1); RDW-SD 50.2 fL; WBC 9.05 10^3/uL (4.4-10.8)
[2023-03-07 12:36] LABS: Anion Gap 10.8 mmol/L (3-11); BUN 27 mg/dL (7-18); CO2 26.2 mmol/L (21.0-32.0); CREATININE 1.8 mg/dL (0.70-1.30); Calcium 9.3 mg/dL (8.5-10.1); Chloride 103 mmol/L (98-107); Estimated GFR 39.25 (mL/min/1.73m2); Glucose 99 mg/dL (74-106); NT-proBNP 278 pg/mL (<300); Potassium 4.6 mmol/L (3.5-5.1); Sodium 140 mmol/L (136-145)
== END 2023-03-07 10:59 | disposition home or self-care (01) ==
LOC: LOS 10:58
PROVIDERS: PCP Nurse Practitioner Family; Referring Provider Nurse Practitioner Family; Visit Provider Nurse Practitioner Family
DX: J18.9 Pneumonia, unspecified organism (principal); R06.02 Shortness of breath
CPT/HCPCS: 36415; 80048; 71046; 83880; 85025

== ENCOUNTER → 2023-03-07 13:16 | Outpatient (CLI) | payer MEDICARE, SELFPAY ==
--- NOTE | 2023-03-07 11:35 | DI.RAD_ITS ---
Exam(s) XR CHEST 2V PA LATERAL EXAM: XR CHEST 2V PA LATERAL CLINICAL HISTORY: r/o PNA, uri, J06.9 TECHNIQUE: 2D digital imaging was performed of the chest. Two images were obtained. PA and lateral views were obtained. COMPARISON: CR XR CHEST 2V PA LATERAL from 02/03/2022 CR XR PORTABLE CHEST AP from 02/02/2023 FINDINGS: MEDIASTINUM: Normal. HEART: Normal. PULMONARY VASCULATURE: Normal. LUNGS: There has been significant improvement in the infiltrate in the right lung base compared to . However, on the frontal view there does appear to be a persistent infiltrate medially. PLEURAL SPACE: No pleural effusion or pneumothorax. BONE:Within normal limits for the patient's age. OTHER FINDINGS:Normal. IMPRESSION: Question of a persistent infiltrate in the medial aspect of the right lung base on the AP view. A CT scan of the chest may be considered for further evaluation. DATA REPOSITORY: RADIATION DOSE DELIVERED:
== END ==
PROVIDERS: PCP Nurse Practitioner Family; Visit Provider Nurse Practitioner Family
DX: J06.9 Acute upper respiratory infection, unspecified (principal); R91.8 Other nonspecific abnormal finding of lung field
CPT/HCPCS: 71046